=== PATIENT | male | born 1950 | race Caucasian/White ===

== ENCOUNTER 2018-03-24 13:00 | Outpatient (RCR) | payer OTHER, SELFPAY ==
--- NOTE | 2018-02-28 17:01 | HP.PTEVAL ---
Patient's Visit Information KAITLYNN SHARP is a 67 year old M referred to Physical Therapy by DARRYL PALMER with a diagnosis of LOW BACK PAIN. Date of Evaluation: 02/24/18 Physical Therapist: Marcie Koehler, PT, Cert MDT - Visit Plan Frequency: 2-3x /Week Duration: 4-6 Weeks Plan: f/u with postural corrections. Add 1. DLP exc and 2. UE Core exc next. - Subjective Findings: Work/Leisure: RETIRED. Disability: YES - SINCE 2011 - FOR PRIMARILY HIS BACK PER PATIENT REPORT. Present symptoms: LOW BACK PAIN. FERNY LE PAIN, NUMBNESS AND TINGLING TO FEET. SOMETIMES LOSES CONTROL OF FEET. Present since: 2004. Pain Scale: WORST 9/10, LEAST 6/10. Currently: 09/17. Commenced as a result of: NO APPARENT REASON. Symptoms at onset: LOW BACK. Worse: EVERYTHING. Better: NOTHING EXCEPT MAYBE LYING ON THE FLOOR. Disturbed sleep: YES. Previous history/Previous treatment: 2010 LUMBAR FUSION [facility]. PAIN MGMT PROCEEDURES - DIDN'T HELP. PAIN MEDICINE. PT A LONG TIME AGO BUT NOT RECENTLY. NO CHIROPRACTOR. Coughing/sneezing/straining: NEGATIVE. Gait: PATIENT REPORTS HE DOES NOT FEEL STABLE WHEN HE WALKS BUT HE DOES NOT HAVE AN ASSISTIVE DEVICE BECAUSE HE DOESN'T FEEL LIKE HE REALLY NEEDS IT. STATES HE JUST REACHES FOR THINGS WHEN UNSTEADY. DISTANCE LIMITED. CAN ONLY WALK ABOUT A QUARTER MILE OR LESS. A LOT OF PAIN THE FURTHER HE WALKS AND LEGS JUST KIND OF GIVE OUT. ABOUT 3 MONTHS AGO SLIPPED AND FELL ON WET FLOOR WASHING CAT THAT JUMPED OUT OF SINK - SCAPED TOP OF RIGHT FOOT BUT OTHERWISE NO RESIDUAL INJURIES. Difficulty initiating urination: NO. Accidents: NO. Unexplained weight loss: NO. Imaging: LUMBAR 01/06/18: SEVERE AND WORSENING DISC SPACE NARROWING AND MARGINAL SCLEROSIS AT L3-L4. POSTERSURGICAL CHANGE AT L4 AND L5 LEVELS, BEFORE. ALIGNMENT FROM L3 THROUGH S1 APPEARS GROSSLY STABLE. POSSIBLE CHRONIC DISCITIS. INCREASED NARROWING L4-L5. MARKED DEGENERATIVE NARROWING L5-S1. MILD RETROLISTHESIS OF L3 AND L4 AND L5 ON S1, WITH MILD ANTEROLISTHESIS OF L4. (SEE REPORT SENT TO BE SCANNED). PMH: IDDM. Recent major surgery: LUMBAR SX, HERNIA REPAIR, APPENDIX - BUT NONE RECENT. PLOF (Prior Level of Function): SAME. OTHER: LIVES ALONE. PATIENT REPORTS ALL OF THE OTHER DOCTORS HAVE TOLD HIM THERE IS NOTHING MORE THEY CAN DO FOR HIM BUT HE IS WILLING TO TRY THIS THERAPY. PATIENT REPORTS HE DOES NOT DO ANY EXERCISE PROGRAMS. - Pain Lumbar Spine Pain Intensity (Out of 10): 7 - Objective Sitting/Standing Posture: POOR. Lordosis: REDUCED. Lateral shift: NO. Relevant shift: N/A. Active Correction of posture: BETTER. Other Observations: THIS PATIENT AMBULATES INDEP'LY INTO PT WITHOUT ANY ASSISTIVE DEVICES OR LOB. CADANCE IS FAIR. INDEP TRANSFERS SIT TO STAND AND REVERSE WITHOUT UE ASSIST. Motor deficit: FERNY LE'S 5/5 WITH MMT'ING EXCEPT HIPS GROSSLY 4/5. Sensory deficit: FERNY LE'S GROSSLY INTACT AND SYMMETRICAL EXCEPT FEET NT. ROM deficit: FERNY HS AND GASTROC SOLEUS TIGHTNESS. Reflexes: FERNY LE'S 1/2. Dural Signs: NEGATIVE FERNY LE'S. Lumbar mvmt loss: flex - NIL. ext - TIAN. R SG - TIAN. L SG - TIAN. PATIENT REPORTS THE MVMTS MORE OR LESS RELEIVE THE PAIN OR PRESSURE. Core strength: POOR. Palpation: NO ACUTE LUMBAR TENDERNESS. - Goals Goal 1:: DECREASE C/O BACK AND FERNY LE SX'S. Goal Time Frame: 4-6 Weeks Goal 2:: IMPROVE STANDING, WALKING, SITTING, ADL AND SLEEP FUNCITON Goal Time Frame: 4-6 Weeks Goal 3:: INSTRUCT IN PROPHYLAXIS Goal Time Frame: 4-6 Weeks - Rehabilitation Potential Rehabilitation Potential: Questionable - Anticipated Interventions Patient/Client Instruction: Educate patient on: Condition, Plan of Care, Risk Factors, Benefits of Fitness Program For the Purpose of:: To improve self management Therapeutic Exercise to Include: Strength training, Body mechanics, Postural training, Flexibilty training, In an aquatic setting, Active ROM, Dynamic Lumbar Stabilization Comment: NEUTRAL SPINE ONLY For the Purpose of:: To decrease pain, To increase ROM, To improve muscle performance and motor function, To improve ability to perform ADL's, To increase tolerance to activity/condition/position, To improve ability of physical actions for home/community/work/leisure, To improve gait and locomotor functions Thank you for the opportunity to evaluate your patient. For Medicare and Medicare HMO plans, please review the plan of care and approve it. It will need to be FAXED BACK to us at [phone] for Medicare purposes. For Medicare only, by signing this I certify the plan of care. Please let me know if there are questions or concerns regarding this plan of care. Physician Signature: Date:
--- NOTE | 2018-03-24 13:27 | HP.PTDCSUM ---
HP - PT D/C Summary It has been my pleasure to treat KAITLYNN SHARP under orders from DARRYL PALMER, for the diagnosis of LOW BACK PAIN for a total of 9 visit(s). Discharge Date: 03/24/18 Please see the following information for a summary of their discharge status. - Subjective Subjective: PATIENT REPORTS THAT HE IS MORE FLEXIBLE NOW BUT HIS PAIN ISN'T A LOT DIFFERENT. [facility]. - Pain Lumbar Spine Pain Intensity (Out of 10): 7 RLE Pain Intensity (Out of 10): 7 LLE Pain Intensity (Out of 10): 7 - Objective Objective/Function: UPON EXAM, THERE ARE NO SIGNIFICANT CHANGES FROM INITIAL EVAL HOWEVER PATIENT HAS TOLERATED PRE IN THE POOL AND IS INDEP WITH A POOL PROGRAM SHOULD HE CHOOSE TO FOLLOW THROUGH. A CANE IS STILL RECOMMENDED FOR SAFETY AND PATIENT IS STILL RELUCTANT BUT AWARE OF RECOMMENDATION. HE IS ALSO INDEP WITH LAND STRETCHES. RECOMMEND PHYSICIAN FOLLOW UP AND PATIENT IS AGREEABLE. - Goals Goal 1:: DECREASE C/O BACK AND FERNY LE SX'S. Goal Progress: Not Progressing Goal 2:: IMPROVE STANDING, WALKING, SITTING, ADL AND SLEEP FUNCITON Goal Progress: Not Progressing Goal 3:: INSTRUCT IN PROPHYLAXIS Goal Progress: Not Progressing - Plan Plan: D/C DUE TO LACK OF PROGRESS - D/C Information If there are questions or concerns regarding this patient's physical therapy, please feel free to call me at [phone]. Thank you for the referral of this patient. Sincerely, Marcie Koehler, PT, Cert MDT
--- OUTSIDE RECORDS SUMMARY | 2018-04-30 23:25 | XMS RPT_ITS ---
:1950 Author Organization [facility] Care Team Providers Name Role Phone RODGER EVANS Attending Unavailable RODGER EVANS Referring Unavailable RODGER EVANS Primary Care Unavailable PROBLEMS PROBLEMS No Problem Records FoundPROCEDURES PROCEDURES No Procedure Records FoundRESULTS RESULTS INITAL EVALUATION (1) Observed: 02/28/2018 Status: F Source: [place] - PT 5:03 PM [facility] [place] [facility] [address] [place] [address]. [address] [place] [address] / REHABILITATION SERVICES INITIAL EVALUATION MR#: [id number] Acct: [id number] Name: KAITLYNN SHARP Rep #: [id number] : 1950 67 From: [place] PT. MDT Referring : Status: REG RCR Insurance: [employer] [employer]URANCE Patient's Visit Information KAITLYNN SHARP is a 67 year old M referred to Physical Therapy by DARRYL PALMER with a diagnosis of LOW BACK PAIN. Date of Evaluation: 02/24/18 Physical Therapist: Marcie Koehler PT, Cert MDT - Visit Plan Frequency: 2-3x /Week Duration: 4-6 Weeks Plan: f/u with postural corrections. Add 1. DLP exc and 2. UE Core exc next. - Subjective Findings: Work/Leisure: RETIRED. Disability: YES - SINCE 2011 - FOR PRIMARILY HIS BACK PER PATIENT REPORT. Present symptoms: LOW BACK PAIN. FERNY LE PAIN, NUMBNESS AND TINGLING TO FEET. SOMETIMES LOSES CONTROL OF FEET. Present since: 2004. Pain Scale: WORST 9/10, LEAST 6/10. Currently: 09/17. Commenced as a result of: NO APPARENT REASON. Symptoms at onset: LOW BACK. Worse: EVERYTHING. Better: NOTHING EXCEPT MAYBE LYING ON THE FLOOR. Disturbed sleep: YES. Previous history/Previous treatment: 2010 LUMBAR [facility]USION [facility]. PAIN MGMT PROCEEDURES - DIDN'T HELP. PAIN MEDICINE. PT A LONG TIME AGO BUT NOT RECENTLY. NO CHIROPRACTOR. Coughing/sneezing/straining: NEGATIVE. Gait: PATIENT REPORTS HE DOES NOT FEEL STABLE WHEN HE WALKS BUT HE DOES NOT HAVE AN ASSISTIVE DEVICE BECAUSE HE DOESN'T FEEL LIKE HE REALLY NEEDS IT. STATES HE JUST REACHES FOR THINGS WHEN UNSTEADY. DISTANCE LIMITED. CAN ONLY WALK ABOUT A QUARTER MILE OR LESS. A LOT OF PAIN THE FURTHER HE WALKS AND LEGS JUST KIND OF GIVE OUT. ABOUT 3 MONTHS AGO SLIPPED AND FELL ON WET FLOOR WASHING CAT THAT JUMPED OUT OF SINK - SCAPED TOP OF RIGHT FOOT BUT OTHERWISE NO RESIDUAL INJURIES. Difficulty initiating urination: NO. Accidents: NO. Unexplained weight loss: NO. Imaging: LUMBAR 01/06/18: SEVERE AND WORSENING DISC SPACE NARROWING AND MARGINAL SCLEROSIS AT L3-L4. POSTERSURGICAL CHANGE AT L4 AND L5 LEVELS, BEFORE. ALIGNMENT FROM L3 THROUGH S1 APPEARS GROSSLY STABLE. POSSIBLE CHRONIC DISCITIS. INCREASED NARROWING L4-L5. MARKED DEGENERATIVE NARROWING L5-S1. MILD RETROLISTHESIS OF L3 AND L4 AND L5 ON S1, WITH MILD ANTEROLISTHESIS OF L4. (SEE REPORT SENT TO BE SCANNED). PMH: IDDM. Recent major surgery: LUMBAR SX, HERNIA REPAIR, APPENDIX - BUT NONE RECENT. PLOF (Prior Level of Function): SAME. OTHER: LIVES ALONE. PATIENT REPORTS ALL OF THE OTHER DOCTORS HAVE TOLD HIM THERE IS NOTHING MORE THEY CAN DO FOR HIM BUT HE IS WILLING TO TRY THIS THERAPY. PATIENT REPORTS HE DOES NOT DO ANY EXERCISE PROGRAMS. - Pain Lumbar Spine Pain Intensity (Out of 10): 7 - Objective Sitting/Standing Posture: POOR. Lordosis: REDUCED. Lateral shift: NO. Relevant shift: N/A. Active Correction of posture: BETTER. Other Observations: THIS PATIENT AMBULATES INDEP'LY INTO PT WITHOUT ANY ASSISTIVE DEVICES OR LOB. CADANCE IS FAIR. INDEP TRANSFERS SIT TO STAND AND REVERSE WITHOUT UE ASSIST. Motor deficit: FERNY LE'S 5/5 WITH MMT'ING EXCEPT HIPS GROSSLY 4/5. Sensory deficit: FERNY LE'S GROSSLY INTACT AND SYMMETRICAL EXCEPT FEET NT. ROM deficit: FERNY HS AND GASTROC SOLEUS TIGHTNESS. Reflexes: FERNY LE'S 1/2. Dural Signs: NEGATIVE FERNY LE'S. Lumbar mvmt loss: flex - NIL. ext - TIAN. R SG - TIAN. L SG - TIAN. PATIENT REPORTS THE MVMTS MORE OR LESS RELEIVE THE PAIN OR PRESSURE. Core strength: POOR. Palpation: NO ACUTE LUMBAR TENDERNESS. - Goals Goal 1:: DECREASE C/O BACK AND FERNY LE SX'S. Goal Time Frame: 4-6 Weeks Goal 2:: IMPROVE STANDING, WALKING, SITTING, ADL AND SLEEP FUNCITON Goal Time Frame: 4-6 Weeks Goal 3:: INSTRUCT IN PROPHYLAXIS Goal Time Frame: 4-6 Weeks - Rehabilitation Potential Rehabilitation Potential: Questionable - Anticipated Interventions Patient/Client Instruction: Educate patient on: Condition, Plan of Care, Risk Factors, Benefits of Fitness Program For the Purpose of:: To improve self management Therapeutic Exercise to Include: Strength training, Body mechanics, Postural training, Flexibilty training, In an aquatic setting, Active ROM, Dynamic Lumbar Stabilization Comment: NEUTRAL SPINE ONLY For the Purpose of:: To decrease pain, To increase ROM, To improve muscle performance and motor function, To improve ability to perform ADL's, To increase tolerance to activity/condition/position, To improve ability of physical actions for home/community/work/leisure, To improve gait and locomotor functions Thank you for the opportunity to evaluate your patient. For Medicare and Medicare HMO plans, please review the plan of care and approve it. It will need to be FAXED BACK to us at [phone] for Medicare purposes. For Medicare only, by signing this I certify the plan of care. Please let me know if there are questions or concerns regarding this plan of care. Physician Signature: Date: <Electronically signed by Marcie Koehler PT, Cert. T> 02/28/18 1703 CC: [facility]; DARRYL PALMER KAMRYN Signed ALLERGIES ALLERGIES No Allergies Records FoundENCOUNTERS ENCOUNTERS ADMIT/DISCHARGE ACCOUNT ADMITTING ENCOUNTER LOCATION SOURCE NUMBER [facility] 03/04/2018 [id number] Ambulatory Zakiya Sigala 9 [facility] ing:PT Repository PAYERS PAYERS ENCOUNTER GUARANTOR PAYER SUBSCRIBER SOURCE 03/04/2018 Kaitlynn [id number] Primary Insurance:[place] Kaitlynn SantoyoOB: Zakiya [facility] [id number] [facility] [address]Nrm: Number: [facility] [id number] Repository (HP) Date:[id number] SERVICE [id number] [place], [place] [address]DN: [phone] X2003 03/04/2018 Secondary NOT GIVENLIBERTAD Sigala Insurance:SELF PAY [facility] Number: Effective Repository Date:2018-02-17
== END 2018-03-24 19:00 | disposition home or self-care (01) ==
LOC: PT 13:00
DX: M54.5 Low back pain (principal)
CPT/HCPCS: 97113; 97162; 97530

== ENCOUNTER 2018-09-06 10:27 | Emergency (ER) | payer OTHER, SELFPAY ==
[2018-09-06] VITALS (8 sets, daily range): BP systolic 129–141; BP diastolic 75–107; PULSE 77–90; RESP 14–18; TEMP 36.5; O2SAT 96–98; BMI 30.6; BMI 30.8
--- NOTE | 2018-09-06 11:01 | EKG12_ITS ---
Test Reason : MEDICAL CLEARANCE Blood Pressure : / mmHG Vent. Rate : 074 BPM Atrial Rate : 074 BPM P-R Int : 172 ms QRS Dur : 102 ms QT Int : 400 ms P-R-T Axes : 056 046 054 degrees QTc Int : 444 ms Normal sinus rhythm Normal ECG Confirmed by STEVIE GAN, TAMMIE ([id number]), video news editor MEGAN CONTRERAS ([id number]) on 09/08/2018 1:35:52 PM Referred By: YASMEEN Confirmed By:TAMMIE HUBBARD MD
--- NOTE | 2018-09-06 11:01 | CT_ITS ---
STUDY: CT BRAIN WITHOUT CONTRAST REASON FOR EXAM: Male, 67 years old. Expressive aphasia. RADIATION DOSAGE (If Supplied By Facility): CTDIvol = ( 44.99 ) mGy, DLP = ( 762.36 ) mGycm TECHNIQUE: Transaxial CT imaging of the brain was performed without administration of intravenous contrast material. Individualized dose optimization techniques were used for this CT. COMPARISON: No relevant priors. FINDINGS: Normal soft tissue structures. Normal calvarium. There is mild cerebral atrophy with widening of the extra-axial spaces and ventricular dilatation. Normal white matter tracts of the cerebral hemispheres. Normal basal ganglia and thalami. Normal brainstem. Normal cerebellum. There is no intracranial hemorrhage. There are no findings of an acute ischemic infarction. Opacification of the left maxillary sinus as well as the left ethmoid sinus with thinning of the bony septations. Partial opacification of the left frontal sinus. CT/Brain/Head without Contrast IMPRESSION: Chronic involutional changes of the brain. Left frontal, ethmoid and left maxillary sinusitis. Electronically Signed: Kulwant Lentz, at 12:55 EDT , Service support ,
--- NOTE | 2018-09-06 11:07 | ED.VISSUMM ---
- ER Visit Summary Date of Service: 09/06/18 Chief Complaint: Suicidal ideation History of Present Illness: The patient is a 67 M who presents with suicidal ideations that have gotten worse today. Granddaughter called police saying that patient was going to overdose on medications. Granddaughter stated the patient was also going to slit his own throat. Currently, patient denies any suicidal ideations. Patient told his granddaughter that he just said that to get her attention. Patient is concerned that he may be having a stroke because he is having difficulty speaking the words that he wants to say. Patient also admits to some left hand weakness. Patient denies any chest pain or shortness of breath. Patient did have an episode of nausea and vomiting today. Patient also admits to some subjective chills. Physical Examination: Vital signs are stable. Patient is afebrile. Patient is in no acute distress. Cranial nerves II through XII are intact. There are no focal motor or sensory deficits noted. Strength is 5/5 bilateral knee upper and lower extremities. There are no sensory deficits noted. Oral mucosa is pink and moist. Neck is supple. Trachea is midline. There is no JVD. Heart was regular rate and rhythm. Lungs are clear and equal bilaterally. Abdomen is soft. Bowel sounds are normal. There is no tenderness. Patient does have a flat affect. Patient denies any suicidal ideations to me. Test Results: CT scan of the brain was obtained. There is no acute infarct. CBC, comprehensive metabolic profile, PT with INR, PTT, and urinalysis were obtained and were all within normal limits. Urine tox screen was positive for benzodiazepines. Serum alcohol level was normal. EKG showed normal sinus rhythm. There are no acute ST or T wave changes. Emergency Department Course and Treatment: Patient remained stable here in the emergency department. Crisis was in to evaluate the patient. She felt the patient would benefit from inpatient admission. She is attempting to contact the DE at this time for possible admission. Disposition: Transfer to psychiatric facility Impression: Depression with suicidal ideation This note was generated with [employer] dictation software. It may contain incorrect words, spelling, and punctuation that were not noted in review of the chart prior to signing ED Disposition - Plan for ED Patient: Referrals: Hospital,DE [Primary Care Provider] -
[2018-09-06 11:30] LABS: Absolute Lymphocyte Count 1.03 X10^3/uL (0.83-4.51); Absolute Neutrophil Count 6.8 X10^3/uL (2.0-7.7); Basophil# 0.04 X10^3/uL; Basophil% 0.5 % (0-1); Eosinophil# 0.22 X10^3/uL; Eosinophils% 2.5 % (0-5); Hemoglobin 14.2 g/dL (13.0-16.5); Lymphocyte # 1.03 X10^3/ul (4.0); Lymphocyte % 11.8 % (19-41); Mean Corp Hgb Conc 34.6 g/dL (32-36); Mean Corpuscular Hgb 31.4 pg (27.0-32.0); Mean Corpuscular Volume 90.7 fL (80-94); Mean Platelet Vol. 10.2 fl (6.2-12.0); Monocyte# 0.54 X10^3/uL; Monocyte% 6.2 % (0-10); NRBC Flagged by Analyzer 0 % (0-5); Neutrophil # 6.78 X10^3/uL (2.7-7.7); Neutrophil % 77.7 % (47-70); Platelet Count 158 K/mm3 (150-450); RBC Distribution Width CV 13.3 % (11.6-14.6); Red Blood Count 4.52 M/mm3 (4.6-6.2); White Blood Count 8.7 K/mm3 (4.4-11.0)
[2018-09-06 11:40] LABS: ALB/GLOB Ratio 1.4 RATIO (0.9-2.4); AST(SGOT) 22 U/L (15-37); Alanine Aminotransfer ALT/SGPT 34 U/L (16-61); Albumin, Serum 4.2 g/dL (3.2-5.0); Alkaline Phosphatase 119 U/L (45-117); Anion Gap 9 (5-15); BUN 15 mg/dL (7-18); BUN/Creat Ratio 12.9 RATIO (10-20); Chloride 103 mmol/L (98-107); Creatinine, Serum 1.16 mg/dL (0.70-1.30); EST Glomerular Filtration Rate 67 mL/min (>60); Est Glom Filt Rate - Afr Amer 81 mL/min (>60); Estimated Creatinine Clearance 68.75 ml/min; Globulin 3.1 g/dL (2.2-4.2); Glucose 192 mg/dL (74-106); Potassium 4.3 mmol/L (3.5-5.1); Protein, Total 7.3 g/dL (6.4-8.2); Sodium Level 140 mmol/L (136-145)
[2018-09-06 11:43] LABS: Partial Thromboplast Time 26.1 Seconds (24.1-36.2)
[2018-09-06 11:56] LABS: Bedside Glucose 186 mg/dL (70-110)
--- NOTE | 2018-09-06 12:48 | ED.RN ---
PT TOLD BRUNA HE PLANNED TO KILL SELF BY OVERDOING. PT THEN TOLD POLICE HE WOULD SLIT HIS THROAT. PINK SLIP IN EFFECT
--- NOTE | 2018-09-06 12:52 | NURSING ---
PT DENIES SUICIDAL & HOMICIDAL IDEATION, PT DENIES ANY PLAN OR INTENTIONS TO HURT HIMSELF. PT DOES CONFIRM PAST ATTEMPT IN 1985. PINK SLIP STATES PATIENT HAS TRIGGERS AND PLAN TO ATTEMPT SI.
[2018-09-06 13:06] LABS: Bacteria 0 SEEN /hpf (None Seen); Mucous, Urine 0 SEEN /hpf (<or=2+); Red Blood Cells-Urine 0 SEEN /hpf (0-5); Squamous Epithelial Cells - UA 0 SEEN /hpf (0-5); White Blood Cells 0 SEEN /hpf (0-5)
[2018-09-06 13:12] LABS: Color, Urine Yellow (Yellow); Glucose, Dipstick 100 mg/dl (Normal); Ketone-Dipstick Negative (Negative); Leukocyte Esterase-Dipstick Negative /ul (Negative); Nitrite-Dipstick Negative (Negative); Occult Blood-Urine Negative /ul (Negative); Protein-Dipstick 30 mg/dl (Negative); Specific Gravity, Urine 1.005 (1.002-1.030); Urine Bilirubin Dipstick Negative (Negative); Urine Clarity Clear (Clear); Urine Urobilinogen Normal (Normal)
[2018-09-06 13:41] LABS: Amphetamine Urine VISTA NEGATIVE (<1000 ng/mL); Barbiturate Urine VISTA NEGATIVE (< 200 ng/mL); Benzodiazepine Urine VISTA POSITIVE (< 200 ng/mL); Cocaine Urine VISTA NEGATIVE (< 300 ng/mL); Ecstacy Urine VISTA NEGATIVE (< 500 ng/mL); Methadone Urine VISTA NEGATIVE (< 300 ng/mL); PCP Urine VISTA NEGATIVE (< 25 ng/mL); THC Urine VISTA NEGATIVE (< 50 ng/mL); Vista UDS pH Range 6
--- NOTE | 2018-09-06 14:44 | ED.RN ---
Addendum entered by Radha Stahl 09/06/18 14:45: MAX'S PHONE NUMBER [phone] Original Note: PHONE CALL TO GRANDDAUGHTER MAX SHARP TO BRING IN PT'S CANE AND PHONE PER PT REQUEST. ADVISED MAX PT IS DECLINING VISITORS AT THIS TIME.
--- NOTE | 2018-09-06 15:04 | CM.ED ---
SOCIAL WORK GET WITH CRISIS ASSESSED PATIENT. PLAN FOR INPATIENT PSYCH HOSPITALIZATION. GET TO WORK ON PLACEMENT. NURSING UPDATED. MAGALY GARRISON, PHYSICIAN PRACTICE COORDINATOR, RESTAURANT SERVER.
--- NOTE | 2018-09-06 17:22 | ED.RN ---
pt accepted at DC. awaiting DC to call
--- NOTE | 2018-09-06 20:54 | NURSING ---
ACCEPTED TO [facility] BY DR. MORRIS [phone] REPORT
[2018-09-06 23:21] LABS: Bedside Glucose 228 mg/dL (70-110)
[2018-09-07] VITALS (7 sets, daily range): BP systolic 161; BP diastolic 80; PULSE 92; RESP 14–16; O2SAT 98
== END 2018-09-07 06:14 ==
PROVIDERS: Emergency Provider Emergency Medicine
DX: F32.9 Major depressive disorder, single episode, unspecified (principal); R45.851 Suicidal ideations; R11.2 Nausea with vomiting, unspecified; R47.02 Dysphasia; R53.1 Weakness; E11.9 Type 2 diabetes mellitus without complications; I10 Essential (primary) hypertension; N40.0 Benign prostatic hyperplasia without lower urinary tract symptoms; M54.9 Dorsalgia, unspecified; G89.29 Other chronic pain; Z79.82 Long term (current) use of aspirin; Z79.4 Long term (current) use of insulin; Z79.1 Long term (current) use of non-steroidal anti-inflammatories (NSAID); Z79.899 Other long term (current) drug therapy
CPT/HCPCS: 70450; 80053; 80307; 80320; 81001; 82962; 84484; 85025; 85610; 85730; 93005; 99284; G0480

== ENCOUNTER 2021-11-22 21:31 | Observation (INO) | payer OTHER, SELFPAY ==
[2021-11-22] VITALS (9 sets, daily range): BP systolic 139–156; BP diastolic 67–76; PULSE 78–102; RESP 12–18; TEMP 36–36.8; O2SAT 93–98; BMI 31.4; BMI 29.7
--- NOTE | 2021-11-22 21:35 | CT_ITS ---
We are attempting to reach an attending provider to discuss findings. An addendum with communication details will be sent when the communication is complete. STUDY: CT BRAIN WITHOUT CONTRAST REASON FOR EXAM: Male, 71 years old. CVA symptoms TECHNIQUE: Transaxial CT imaging of the brain was performed without administration of intravenous contrast material. Individualized dose optimization techniques were used for this CT. COMPARISON: 09.06.18 FINDINGS: Normal calvarium. Normal soft tissues. Normal size ventricles and extra-axial spaces for the patient''s age. Normal white matter tracts of the cerebral hemispheres. Normal basal ganglia and thalami. Normal brainstem. Normal cerebellum. There is no intracranial hemorrhage. There are no findings of an acute ischemic infarction. There are calcifications noted in the distal vertebral arteries. There are calcifications noted in the cavernous carotid arteries. This is consistent for atherosclerotic disease. There is sinus disease. ASPECTS 10 CT/Brain/Head without Contrast IMPRESSION: There are no acute intracranial findings. Electronically Signed: Don Bertrand MD at 21:45 EDT ,
--- NOTE | 2021-11-22 21:51 | EDS_ITS ---
HPI History of Present Illness Chief Complaint: Neuro S/Sx Narrative Narrative: I did not participate in this patient's care. [facility] Medical History Anxiety and depression BPH (benign prostatic hyperplasia) Chronic anemia Diabetes mellitus, type 2 Former tobacco use GERD (gastroesophageal reflux disease) HLD (hyperlipidemia) HTN (hypertension) HATTIE on CPAP Home Medications Insulin Glargine,Hum.rec.anlog 45 unit SQ QHS diabetes 09/06/18 [History Last Taken 11/21/21] Iron 65 mg PO DAILY supplement 09/06/18 [History Last Taken 11/21/21] Novolog Flexpen 12 unit SQ BREAKFAST diabetes 09/06/18 [History Last Taken 11/21/21] traMADol 50 mg PO QHS pain 09/06/18 [History Last Taken 11/21/21] aspirin 81 mg capsule 81 mg PO DAILY heart health 11/22/21 [History Last Taken 11/21/21] buspirone 5 mg tablet 5 mg PO QHS depression/anxiety 11/22/21 [History Last Taken 11/21/21] cetirizine 10 mg tablet 10 mg PO QHS allergies 11/22/21 [History Last Taken 11/21/21] gabapentin 600 mg tablet 300 mg PO DAILY neuropathy 11/22/21 [History Last Taken 11/21/21] gabapentin 600 mg tablet 900 mg PO QHS neuropathy 11/22/21 [History Last Taken 11/21/21] ginkgo biloba 60 mg tablet 60 mg PO BID supplement 11/22/21 [History Last Taken 11/21/21] lisinopril 5 mg tablet 5 mg PO DAILY blood pressure 11/22/21 [History Last Taken 11/21/21] multivitamin 1 tab PO DAILY supplement 11/22/21 [History Last Taken 11/21/21] naproxen 500 mg tablet (Naprosyn) 500 mg PO BID PRN Pain 11/22/21 [History Last Taken Unknown] sertraline 100 mg tablet 100 mg PO DAILY depression/anxiety 11/22/21 [History Last Taken 11/21/21] tamsulosin 0.4 mg capsule 0.8 mg PO QHS urine flow 11/22/21 [History Last Taken 11/21/21] trazodone 50 mg tablet 25 mg PO QHS sleep 11/22/21 [History Last Taken 11/21/21] Allergy/AdvReac Type Severity Reaction Status Date / Time No Known Allergies Allergy Verified 09/06/18 10:27 Family History (Updated 11/22/21 @ 21:[address] Felicia Hester MD) Mother ALS (amyotrophic lateral sclerosis) Father BPH (benign prostatic hyperplasia) CAD (coronary artery disease) Sister Diabetes Surgical History History of appendectomy History of back surgery History of umbilical hernia repair Social History (Updated 11/22/21 @ 23:[address] Felicia Hester MD) household members: other details: Significant other present, girlfriend x 1 year. Smoking Status: Light Smoker (<10/day) how long ago did patient quit smoking: Quit cigarette tobacco 02/09 ppd x 25 yrs, picked up cigar 1-2/day. alcohol intake: current alcohol intake frequency: a few times a week substance use type: does not use EXAM Physical Exam Const Vital Signs: 11/22/21 21:31 11/22/21 21:46 11/22/21 21:31 Temperature 97.1 F L 97.1 F L Temperature Source Temporal Temporal Pulse Rate 85 Respiratory Rate 17 Blood Pressure 144/70 H Blood Pressure Mean 94 Pulse Ox 93 98 Oxygen Delivery Method Room Air Room Air 11/22/21 21:55 11/22/21 22:01 11/22/21 22:21 Temperature 98.1 F Temperature Source Oral Pulse Rate 80 97 Respiratory Rate 16 12 Blood Pressure 139/67 H 150/76 H Blood Pressure Mean 91 100 Pulse Ox 98 97 96 Oxygen Delivery Method Room Air Room Air Room Air [facility] Lab Data Labs: Laboratory Results - last 24 hr 11/22/21 11/22/21 11/22/21 21:29 21:29 21:29 WBC 6.9 RBC 4.23 L Hgb 13.8 Hct 41.2 MCV 97.4 H MCH 32.6 H MCHC 33.5 RDW Std Deviation 43.8 RDW Coeff of Haley 12.2 Plt Count 158 MPV 10.6 Immature Gran % (Auto) 0.600 Neut % (Auto) 72.2 H Lymph % (Auto) 18.1 L [place] % (Auto) 5.5 Eos % (Auto) 3.2 Baso % (Auto) 0.4 Absolute Neuts (auto) 5.0 Absolute Lymphs (auto) 1.24 Nucleated RBC % 0 PT 12.7 INR 1.0 APTT 23.8 L Sodium 140 Potassium 4.3 Chloride 105 Carbon Dioxide 28.0 Anion Gap 7 BUN 15 Creatinine 1.14 Estim Creat Clear Calc 66.18 Est GFR (MDRD) Af Amer 82 Est GFR (MDRD) Non-Af 68 BUN/Creatinine Ratio 13.2 Glucose 318 H Calcium 8.7 Magnesium Troponin I High Sens 5 11/22/21 21:29 WBC RBC Hgb Hct MCV MCH MCHC RDW Std Deviation RDW Coeff of Haley Plt Count MPV Immature Gran % (Auto) Neut % (Auto) Lymph % (Auto) [place] % (Auto) Eos % (Auto) Baso % (Auto) Absolute Neuts (auto) Absolute Lymphs (auto) Nucleated RBC % PT INR APTT Sodium Potassium Chloride Carbon Dioxide Anion Gap BUN Creatinine Estim Creat Clear Calc Est GFR (MDRD) Af Amer Est GFR (MDRD) Non-Af BUN/Creatinine Ratio Glucose Calcium Magnesium 2.2 Troponin I High Sens Radiography Diagnostic Testing: Clinical Impression(s) from Imaging Studies Brain CT 11/22/21 21:35 IMPRESSION: There are no acute intracranial findings. Electronically Signed: Don Bertrand MD at 21:45 EDT , ADDENDUM: 11/22/21 2200 IMPRESSION: There are no acute intracranial findings. N.B. : The above Results were Read Back by Don Bertrand MD to Florian Toney DO, MD, and understanding confirmed on 11/22/2021 21:53:09 (ET). Electronically Signed: Don Bertrand MD at 21:45 EDT , Chest X-Ray 11/22/21 22:15 IMPRESSION: Normal x-ray examination of the chest. Electronically Signed: Rodger Alberts MD at 22:28 EDT , Head/Neck CTA 11/22/21 22:18 IMPRESSION: Negative CTA carotid and CTA brain. Electronically Signed: Sarwat Caban MD at 22:35 EDT , ADDENDUM: 11/22/21 2243 IMPRESSION: Negative CTA carotid and CTA brain. N.B. : The above Results were Read Back by Sarwat Caban MD to Dr. Feng MD, and understanding confirmed on 11/22/2021 22:36:44 (ET). Electronically Signed: Sarwat Caban MD at 22:35 EDT , Discharge Plan Dx/Rx/DC Orders Clinical Impression: TIA (transient ischemic attack), General weakness, Diabetes mellitus Disposition Disposition: Acute Care Hospital [facility] Discharge Date/Time: 11/22/21 23:05
--- NOTE | 2021-11-22 21:55 | EKG12_ITS ---
Test Reason : STROKE Blood Pressure : / mmHG Vent. Rate : 082 BPM Atrial Rate : 000 BPM P-R Int : 000 ms QRS Dur : 088 ms QT Int : 368 ms P-R-T Axes : 000 054 055 degrees QTc Int : 429 ms Sinus Vs Ectopic Atrial Rhythm Abnormal ECG Confirmed by STEVIE GAN, TAMMIE ([id number]), international editorial producer MEGAN CONTRERAS ([id number]) on 11/25/2021 8:14:07 AM Referred By: DIMITRI Confirmed By:TAMMIE HUBBARD MD
--- NOTE | 2021-11-22 21:58 | ED.VIS.STROK ---
HPI History of Present Illness Chief Complaint: Neuro S/Sx Informant: patient and friend Onset/Context/Timing Onset: Today Context: Sudden Onset Timing: Continuous (Improving) Quality and Location: Positive for Right Arm Weakness, Left Arm Weakness, Right Leg Weakness, Left Leg Weakness, Slurred Speech and Difficulty with Ambulation Onset: 2000 hours tonight (approximately 90 minutes prior to arrival) Worsened by: Nothing Relieved by: Nothing Associated Symptoms Associated Symptoms: Positive for Headache, Nausea and Vomiting Narrative Narrative: Patient presents with stroke symptoms that began tonight. Patient was sitting on a swing by a campfire when he suddenly had slurred speech approximately 90 minutes prior to arrival. Patient states he felt weak all over at that time. Patient states he could not move. Girlfriend states that the patient had an episode of urinary and stool incontinence. Patient admits to a mild headache. Patient did have an episode of nausea and vomiting. Patient denies any chest pain or shortness of breath. Patient states his symptoms are improving here in the emergency department. [facility] Medical History Anxiety and depression BPH (benign prostatic hyperplasia) Chronic anemia Diabetes mellitus, type 2 Former tobacco use GERD (gastroesophageal reflux disease) HLD (hyperlipidemia) HTN (hypertension) HATTIE on CPAP Home Medications Insulin Glargine,Hum.rec.anlog 45 unit SQ PCHS 09/06/18 [History Last Taken Unknown] Iron 65 mg PO DAILY 09/06/18 [History Last Taken Unknown] Novolog Flexpen 12 unit SQ DAILY 09/06/18 [History Last Taken Unknown] traMADol 50 mg PO BID 09/06/18 [History Last Taken Unknown] aspirin 81 mg capsule 81 mg PO DAILY 11/22/21 [History Last Taken Unknown] buspirone 5 mg tablet 5 mg PO QHS 11/22/21 [History Last Taken 11/21/21] cetirizine 10 mg tablet 10 mg PO QHS t-1 11/22/21 [History Last Taken 11/21/21] gabapentin 600 mg tablet 1,200 mg PO QHS 11/22/21 [History Last Taken 11/21/21] gabapentin 600 mg tablet 600 mg PO DAILY 11/22/21 [History Last Taken Unknown] ginkgo biloba 60 mg tablet 60 mg PO BID 11/22/21 [History Last Taken Unknown] lisinopril 5 mg tablet 5 mg PO DAILY 11/22/21 [History Last Taken 11/22/21] multivitamin 1 tab PO DAILY 11/22/21 [History Last Taken Unknown] naproxen 500 mg tablet (Naprosyn) 500 mg PO BID PRN Pain 11/22/21 [History Last Taken Unknown] sertraline 100 mg tablet 100 mg PO DAILY 11/22/21 [History Last Taken 11/22/21] tamsulosin 0.4 mg capsule 0.8 mg PO QHS 11/22/21 [History Last Taken 11/21/21] trazodone 50 mg tablet 25 mg PO QHS sleep 11/22/21 [History Last Taken 11/21/21] Allergy/AdvReac Type Severity Reaction Status Date / Time No Known Allergies Allergy Verified 09/06/18 10:27 Family History (Updated 11/22/21 @ 21:[address] Felicia Hester MD) Mother ALS (amyotrophic lateral sclerosis) Father BPH (benign prostatic hyperplasia) CAD (coronary artery disease) Sister Diabetes Surgical History History of appendectomy History of back surgery History of umbilical hernia repair Social History (Updated 11/22/21 @ 22:[address] Felicia Hester MD) household members: spouse Smoking Status: Light Smoker (<10/day) alcohol intake: current alcohol intake frequency: a few times a week substance use type: does not use ROS ROS ED Constitutional Constitutional ED: Denies chills or fever(s) Eyes Eyes: Reports blurry vision; Denies diplopia ENT ENT ED: Reports rhinorrhea; Denies sore throat Cardiovascular Cardiovascular: Denies chest pain or palpitations Respiratory/Chest Respiratory/Chest: Denies cough or dyspnea Gastrointestinal Gastrointestinal: Reports nausea and vomiting Genitourinary Genitourinary ED: Denies dysuria or hematuria Musculoskeletal Musculoskeletal: Denies back pain or neck pain Integumentary Denies abscess or rash Neurologic Neurologic: Reports headache(s) and weakness Allergic/Immunologic Allergic/Immunologic ED: Denies mouth swelling or urticaria EXAM Physical Exam Const Vital Signs: 11/22/21 21:31 11/22/21 21:46 11/22/21 21:31 Temperature 97.1 F L 97.1 F L Temperature Source Temporal Temporal Pulse Rate 85 Respiratory Rate 17 Blood Pressure 144/70 H Blood Pressure Mean 94 Pulse Ox 93 98 Oxygen Delivery Method Room Air Room Air 11/22/21 21:55 11/22/21 22:01 11/22/21 22:21 Temperature 98.1 F Temperature Source Oral Pulse Rate 80 97 Respiratory Rate 16 12 Blood Pressure 139/67 H 150/76 H Blood Pressure Mean 91 100 Pulse Ox 98 97 96 Oxygen Delivery Method Room Air Room Air Room Air Positive well nourished and well developed General Appearance ED: well developed and NAD HEENT Reports moist mucous membranes atraumatic Eyes PERRL and EOMs intact bilaterally Neck supple and no JVD Chest Wall inspection of chest normal and palpation of chest normal Resp normal respiratory effort and clear to auscultation bilaterally Cardio Rate: regular rate Rhythm: regular rhythm GI normal to inspection, nondistended, normoactive bowel sounds, soft to palpation and non-tender Extremity normal to inspection Neuro oriented x3, CN's II-XII intact bilaterally and no sensory deficits noted [place] Coma Scale: document GCS findings Spontaneous Obeys Commands Oriented 15 Sensorium / Orientation: alert Speech: speech normal Motor Exam: strength 5/5 throughout Psych mental status grossly normal Skin no wounds NIHSS NIHSS Initial: 1a Level of Consciousness: 0 1b LOC Questions (Score 2 if aphasic/stupor): 0 1c LOC Commands (Only score 1st attempt): 0 2 Best Gaze (If aphasic, use reflexive mvmts.): 0 3 Visual: 0 4 Facial Palsy: 0 5 Motor Arm Right (UN = amputation/fusion): 0 5 Motor Arm Left: 0 6 Motor Leg Right: 0 6 Motor Leg Left: 0 7 Limb ataxia (Only + if out of proportion): 0 8 Sensory (Aphasia/stupor=0 or 1, coma=2): 0 9 Best Language: 0 10 Dysarthria (mute, coma=2, intubated=UN): 0 11 Extinction and Inattention (only scored if +): 0 Total Score: 0 MDM MDM MDM Narrative Medical decision making narrative: Stroke alert was called prehospital. CT scan of the brain was obtained initially and was negative. This was interpreted by the radiologist and reviewed by myself. EKG was obtained. On my interpretation, it showed a normal sinus rhythm with a rate of 82. IN interval, QRS interval, and QTc intervals were all normal. [place] was normal. There are no acute ST or T wave changes. Portable 1 view chest x-ray was obtained. On my interpretation, lung montoya are clear. There is normal cardiac silhouette. Bony thorax is normal. There is no acute process noted. Radiologist also interpreted the x-ray and agrees. CBC was within normal limits. PT with INR and PTT were within normal limits. Basic metabolic profile was within normal limits. High-sensitivity troponin was normal. CTA of the head neck was obtained. There is no acute abnormality noted. There is no evidence of large vessel occlusion. This was interpreted by the radiologist and reviewed by myself. Patient was evaluated by the stroke neurologist from [facility], Dr. Teresa Washington. She does not recommend tPA since his NIH stroke scale is low and his symptoms are improving. She recommends admission to the hospital and further work-up. Patient understands and is agreeable with the plan. All questions were answered. Lab Data Attestation: I reviewed the patient's lab results. Labs: Laboratory Results - last 24 hr 11/22/21 11/22/21 11/22/21 21:29 21:29 21:29 WBC 6.9 RBC 4.23 L Hgb 13.8 Hct 41.2 MCV 97.4 H MCH 32.6 H MCHC 33.5 RDW Std Deviation 43.8 RDW Coeff of Haley 12.2 Plt Count 158 MPV 10.6 Immature Gran % (Auto) 0.600 Neut % (Auto) 72.2 H Lymph % (Auto) 18.1 L [place] % (Auto) 5.5 Eos % (Auto) 3.2 Baso % (Auto) 0.4 Absolute Neuts (auto) 5.0 Absolute Lymphs (auto) 1.24 Nucleated RBC % 0 PT 12.7 INR 1.0 APTT 23.8 L Sodium 140 Potassium 4.3 Chloride 105 Carbon Dioxide 28.0 Anion Gap 7 BUN 15 Creatinine 1.14 Estim Creat Clear Calc 66.18 Est GFR (MDRD) Af Amer 82 Est GFR (MDRD) Non-Af 68 BUN/Creatinine Ratio 13.2 Glucose 318 H Calcium 8.7 Troponin I High Sens 5 Radiography Diagnostic Testing: Clinical Impression(s) from Imaging Studies Brain CT 11/22/21 21:35 IMPRESSION: There are no acute intracranial findings. Electronically Signed: Don Bertrand MD at 21:45 EDT , ADDENDUM: 11/22/21 2200 IMPRESSION: There are no acute intracranial findings. N.B. : The above Results were Read Back by Don Bertrand MD to Florian Toney DO, MD, and understanding confirmed on 11/22/2021 21:53:09 (ET). Electronically Signed: Don Bertrand MD at 21:45 EDT , Chest X-Ray 11/22/21 22:15 IMPRESSION: Normal x-ray examination of the chest. Electronically Signed: Rodger Alberts MD at 22:28 EDT , EKG Initial EKG: Attestation: I personally reviewed and interpreted this EKG as follows: Interpretation: Sinus Rhythm (82) and No Acute Injury Pattern Prior EKG tracings: available for review Prior: Unchanged (09/06/2018) Critical Care Time Critical Care Time: Yes Critical care time (excluding procedures): 30-74 minutes (33), Including time spent:, Discussing w/Patient &/or Family/Architectural Draftsman, Discussing w/Consultants, Arranging Admission or Transfer and Performing Direct Patient Care at Bedside Discharge Plan Triage Chief Complaint: Neuro S/Sx ED Provider: Florian Toney Dx/Rx/DC Orders Clinical Impression: TIA (transient ischemic attack), General weakness, Diabetes mellitus Prescriptions: No Action Insulin Glargine,Hum.rec.anlog 45 unit SQ PCHS Iron 65 mg PO DAILY Novolog Flexpen 12 unit SQ DAILY traMADol 50 mg PO BID multivitamin Tablet 1 tab PO DAILY buspirone 5 mg Tablet 5 mg PO QHS gabapentin 600 mg Tablet 600 mg PO DAILY gabapentin 600 mg Tablet 1,200 mg PO QHS trazodone 50 mg Tablet 25 mg PO QHS cetirizine 10 mg Tablet 10 mg PO QHS sertraline 100 mg Tablet 100 mg PO DAILY tamsulosin 0.4 mg Capsule 0.8 mg PO QHS Ginkgo 60 mg Tablet 60 mg PO BID Rx Instructions: give with meal/snack lisinopril 5 mg Tablet 5 mg PO DAILY naproxen [Naprosyn] 500 mg Tablet 500 mg PO BID PRN (Reason: Pain) aspirin 81 mg Capsule 81 mg PO DAILY [facility] Care Provider[facility] [facility] [Primary Care Provider] - Disposition Disposition: Acute Care Hospital [facility]
[2021-11-22 22:02] LABS: Absolute Lymphocyte Count 1.24 X10^3/uL (0.83-4.51); Basophil# 0.03 X10^3/uL; Basophil% 0.4 % (0-1); Eosinophil# 0.22 X10^3/uL; Eosinophils% 3.2 % (0-5); Hematocrit 41.2 % (40-54); Hemoglobin 13.8 g/dL (13.0-16.5); Lymphocyte # 1.24 X10^3/ul (0.83-4.51); Lymphocyte % 18.1 % (19-41); Mean Corp Hgb Conc 33.5 g/dL (32-36); Mean Corpuscular Hgb 32.6 pg (27.0-32.0); Mean Corpuscular Volume 97.4 fL (80-94); Mean Platelet Vol. 10.6 fl (6.2-12.0); Monocyte# 0.38 X10^3/uL; Monocyte% 5.5 % (0-10); NRBC Flagged by Analyzer 0 % (0-5); Neutrophil # 4.95 X10^3/uL (2.7-7.7); Neutrophil % 72.2 % (47-70); Platelet Count 158 K/mm3 (150-450); RBC Distribution Width CV 12.2 % (11.6-14.6); RBC Distribution Width SD 43.8 fl (35.1-43.9); Red Blood Count 4.23 M/mm3 (4.6-6.2); White Blood Count 6.9 K/mm3 (4.4-11.0)
[2021-11-22 22:12] LABS: Prothrombin Time (Protime)PT. 12.7 SECONDS (11.7-14.9)
[2021-11-22 22:13] LABS: Partial Thromboplast Time 23.8 Seconds (24.1-36.2)
--- NOTE | 2021-11-22 22:15 | RAD_ITS ---
STUDY: X-RAY CHEST REASON FOR EXAM: Male, 71 years old. Neuro deficit, acute, stroke suspected TECHNIQUE: Single AP portable view of the chest. COMPARISON: None. FINDINGS: The lungs are clear and expanded. There is no demonstrated pleural abnormality. Normal size heart. Normal mediastinum and alejandra. Normal visualized pulmonary arteries. Normal visualized aortic arch and descending thoracic aorta. Normal visualized thoracic spine. Normal visualized ribs, clavicles, and shoulders. There is no demonstrated abnormality of the visualized soft tissue structures of the upper abdomen. RAD/Chest 1 View IMPRESSION: Normal x-ray examination of the chest. Electronically Signed: Rodger Alberts MD at 22:28 EDT ,
--- NOTE | 2021-11-22 22:18 | CT_ITS ---
We are attempting to reach an attending provider to discuss findings. An addendum with communication details will be sent when the communication is complete. EXAM: CT ANGIOGRAPHY HEAD AND NECK WITH INTRAVENOUS CONTRAST CLINICAL INDICATION: Neuro deficit, acute, stroke suspected TECHNIQUE: [place] [facility] [place]/head and neck CT angiography protocol performed with intravenous contrast. This CT exam was performed using one or more of the following dose reduction techniques: automated exposure control, adjustment of the mA and/or kV according to patient size, and/or use of iterative reconstruction technique. This report was created using [employer] report [employer] technology. MIP reconstructed images were created and reviewed. CONTRAST: IV 100mL [id number] COMPARISON: None. FINDINGS: HEAD: RIGHT ANTERIOR CEREBRAL ARTERY: Unremarkable. No significant stenosis at the visualized segments. Anterior communicating artery is present. No aneurysm. RIGHT MIDDLE CEREBRAL ARTERY: Unremarkable. No significant stenosis at the visualized segments. No aneurysm. RIGHT POSTERIOR CEREBRAL ARTERY: Unremarkable. No occlusion or significant stenosis. No aneurysm. RIGHT INTRACRANIAL INTERNAL CAROTID ARTERY: Unremarkable. No significant stenosis. No dissection or occlusion. RIGHT INTRACRANIAL VERTEBRAL ARTERY: Unremarkable. No significant stenosis. No dissection or occlusion. LEFT ANTERIOR CEREBRAL ARTERY: Unremarkable. No significant stenosis at the visualized segments. No aneurysm. LEFT MIDDLE CEREBRAL ARTERY: Unremarkable. No significant stenosis at the visualized segments. No aneurysm. LEFT POSTERIOR CEREBRAL ARTERY: Unremarkable. No occlusion or significant stenosis. No aneurysm. LEFT INTRACRANIAL INTERNAL CAROTID ARTERY: Unremarkable. No significant stenosis. No dissection or occlusion. LEFT INTRACRANIAL VERTEBRAL ARTERY: Unremarkable. No significant stenosis. No dissection or occlusion. BASILAR ARTERY: Unremarkable. No significant stenosis. No aneurysm. OTHER VASCULATURE: No vascular malformation. NECK: RIGHT COMMON CAROTID ARTERY: Unremarkable. No significant stenosis. No dissection or occlusion. RIGHT EXTRACRANIAL INTERNAL CAROTID ARTERY: Unremarkable. No significant stenosis. No dissection or occlusion. RIGHT EXTERNAL CAROTID ARTERY: Unremarkable. No occlusion. RIGHT EXTRACRANIAL VERTEBRAL ARTERY: Unremarkable. No significant stenosis. No dissection or occlusion. LEFT COMMON CAROTID ARTERY: Unremarkable. No significant stenosis. No dissection or occlusion. LEFT EXTRACRANIAL INTERNAL CAROTID ARTERY: Unremarkable. No significant stenosis. No dissection or occlusion. LEFT EXTERNAL CAROTID ARTERY: Unremarkable. No occlusion. LEFT EXTRACRANIAL VERTEBRAL ARTERY: Unremarkable. No significant stenosis. No dissection or occlusion. GREAT VESSELS OF AORTIC ARCH: Unremarkable as visualized. Normal anatomy, patent. LUNG APICES: Unremarkable as visualized. HEAD and NECK: BONES/JOINTS: Unremarkable. No discrete lytic or blastic abnormalities. SOFT TISSUES: Unremarkable. CAROTID STENOSIS REFERENCE USING NASCET CRITERIA: % ICA stenosis = (1 - narrowest ICA diameter/diameter of distal cervical ICA) x 100. Mild - <50% stenosis. Moderate - 50-69% stenosis. Severe - 70-94% stenosis. Near occlusion - 95-99% stenosis. Occluded - 100% stenosis. CT/STROKE CTA Head AND Neck W/Con IMPRESSION: Negative CTA carotid and CTA brain. Electronically Signed: Sarwat Caban MD at 22:35 EDT ,
[2021-11-22 22:19] LABS: Anion Gap 7 (5-15); BUN 15 mg/dL (7-18); BUN/Creat Ratio 13.2 RATIO (10-20); Calcium,Total 8.7 mg/dL (8.5-10.1); Chloride 105 mmol/L (98-107); Creatinine, Serum 1.14 mg/dL (0.70-1.30); EST Glomerular Filtration Rate 68 mL/min (>60); Est Glom Filt Rate - Afr Amer 82 mL/min (>60); Estimated Creatinine Clearance 66.18 ml/min; Glucose 318 mg/dL (74-106); Potassium 4.3 mmol/L (3.5-5.1); Sodium Level 140 mmol/L (136-145); Troponin-I HS 5 pg/mL (3.0-78.0)
--- NOTE | 2021-11-22 22:27 | PCM.HP.STD ---
HPI - General General Date of Admission: 11/22/21 Date of Service: 11/22/21 Chief Complaint: Altered speech, general weakness. HPI Narrative The patient is a 71 y/o M w/ PMHx: Tobacco use, Chronic back pain, BPH, GERD, Anxiety and Depression w/ Hx suicidal ideations prior requiring psychiatric admission, Diabetes mellitus type II with neuropathy, HTN, HLD, Chronic anemia/Fe deficiency anemia, HATTIE on CPAP q HS who presents to the [facility] ED on 11/22/21 with history of onset at approximately 8:15 PM noted generalized weakness in addition to slurred speech reporting his inability to move secondary to generalized weakness with dysarthria and episode of nausea with associated emesis prompting EMS call and transition to the ED for evaluation. Of note patient's significant reporting that they had smoked cannabis during the evening for his birthday in addition to an episode of urinary and stool incontinence. Patient also reporting a mild headache upon ED presentation. Significant also noted that when he had the episode of incontinence of both urine and stool he was laying backwards and not responding but this only lasted seconds. Initial ED evaluation NIH stroke scale 0 with no specific focal deficits. Work-up in the ED included T97.1, heart rate 85, BP 144/70, respiratory rate 17, 98% on room air, EKG with sinus rhythm with no acute evidence of ischemia, CT of the brain with no acute intracranial findings, CBC with the be 6.9, hemoglobin 13.8, platelet 158 without marked shift, coags unremarkable aside PTT 23.8, BMP unremarkable aside glucose 318, troponin 5, CTA head and neck [], chest x-ray []. [facility] telestroke call with recommendation for continued evaluation for ischemic stroke at [facility] if CTA head and neck with no concerning findings or large vessel occlusion requiring transfer. [facility] Medical History Anxiety and depression BPH (benign prostatic hyperplasia) Chronic anemia Diabetes mellitus, type 2 Former tobacco use GERD (gastroesophageal reflux disease) HLD (hyperlipidemia) HTN (hypertension) HATTIE on CPAP Home Medications Insulin Glargine,Hum.rec.anlog 45 unit SQ PCHS 09/06/18 [History Last Taken Unknown] Iron 65 mg PO DAILY 09/06/18 [History Last Taken Unknown] Novolog Flexpen 12 unit SQ DAILY 09/06/18 [History Last Taken Unknown] traMADol 50 mg PO BID 09/06/18 [History Last Taken Unknown] aspirin 81 mg capsule 81 mg PO DAILY 11/22/21 [History Last Taken Unknown] buspirone 5 mg tablet 5 mg PO QHS 11/22/21 [History Last Taken 11/21/21] cetirizine 10 mg tablet 10 mg PO QHS t-1 11/22/21 [History Last Taken 11/21/21] gabapentin 600 mg tablet 1,200 mg PO QHS 11/22/21 [History Last Taken 11/21/21] gabapentin 600 mg tablet 600 mg PO DAILY 11/22/21 [History Last Taken Unknown] ginkgo biloba 60 mg tablet 60 mg PO BID 11/22/21 [History Last Taken Unknown] lisinopril 5 mg tablet 5 mg PO DAILY 11/22/21 [History Last Taken 11/22/21] multivitamin 1 tab PO DAILY 11/22/21 [History Last Taken Unknown] naproxen 500 mg tablet (Naprosyn) 500 mg PO BID PRN Pain 11/22/21 [History Last Taken Unknown] sertraline 100 mg tablet 100 mg PO DAILY 11/22/21 [History Last Taken 11/22/21] tamsulosin 0.4 mg capsule 0.8 mg PO QHS 11/22/21 [History Last Taken 11/21/21] trazodone 50 mg tablet 25 mg PO QHS sleep 11/22/21 [History Last Taken 11/21/21] Allergy/AdvReac Type Severity Reaction Status Date / Time No Known Allergies Allergy Verified 09/06/18 10:27 Family History (Updated 11/22/21 @ 21:[address] Felicia Hester MD) Mother ALS (amyotrophic lateral sclerosis) Father BPH (benign prostatic hyperplasia) CAD (coronary artery disease) Sister Diabetes Surgical History History of appendectomy History of back surgery History of umbilical hernia repair Social History (Updated 11/22/21 @ 23:[address] Felicia Hester MD) household members: other details: Significant other present, girlfriend x 1 year. Smoking Status: Light Smoker (<10/day) how long ago did patient quit smoking: Quit cigarette tobacco 2004 w/ 1/2 ppd x 25 yrs, picked up cigar 1-2/day. alcohol intake: current alcohol intake frequency: a few times a week substance use type: does not use ROS ROS Narrative Admission Review of Systems: CONSTITUTIONAL: No weight loss, fever, chills, + weakness or fatigue. HEENT: + headache. Eyes: No visual loss, blurred vision, double vision or yellow sclerae. Ears, Nose, Throat: No hearing loss, sneezing, congestion, runny nose or sore throat. SKIN: No rash or itching, lesions, wounds. CARDIOVASCULAR: No chest pain, chest pressure or chest discomfort, palpitations, edema, orthopnea, syncopal events. RESPIRATORY: No shortness of breath, cough or sputum, wheezing, hemoptysis. GASTROINTESTINAL: No anorexia, nausea, vomiting or diarrhea, abdominal pain, melena, BRBPR. GENITOURINARY: No dysuria, frequency, urgency or retention. NEUROLOGICAL: + headache, slurred speech, ? ataxia, generalized weakness, loss bowel and bladder, unresponsive period. No dizziness, numbness or tingling in the extremities, focal weakness, obvious seizure activity. MUSCULOSKELETAL: + muscle, back pain, joint pain or stiffness. HEMATOLOGIC: + anemia, bleeding or bruising. LYMPHATICS: No enlarged nodes. No history of splenectomy. PSYCHIATRIC: + history of depression or anxiety. ENDOCRINOLOGIC: No reports of sweating, cold or heat intolerance. No polyuria or polydipsia. ALLERGIES: No history of asthma, hives, eczema or rhinitis. Vital Signs Vital Signs Vital Signs: 11/22/21 21:31 11/22/21 21:46 11/22/21 21:31 Temperature 97.1 F L 97.1 F L Temperature Source Temporal Temporal Pulse Rate 85 Respiratory Rate 17 Blood Pressure 144/70 H Blood Pressure Mean 94 Pulse Ox 93 98 Oxygen Delivery Method Room Air Room Air 11/22/21 21:55 11/22/21 22:01 11/22/21 22:21 Temperature 98.1 F Temperature Source Oral Pulse Rate 80 97 Respiratory Rate 16 12 Blood Pressure 139/67 H 150/76 H Blood Pressure Mean 91 100 Pulse Ox 98 97 96 Oxygen Delivery Method Room Air Room Air Room Air Weight Weight: 231 lb 14.821 oz Body Mass Index (BMI) 31.4 Physical Exam Narrative Physical Examination: General: Awake, alert, oriented x 3 and cooperative, seated upright in the ED bed, significantly fatigued, irritable with repeat examinations. Skin: Normal color, normal turgor, no icterus, no cyanosis except for left anterior castellanos abrasion which patient had a clear cover dressing over with antibacterial ointment with some expected softened tissue over the abrasion and mild redness but no specific obvious infection or foul smell. HEENT: AT/NC, EOMI, PERRLA, mildly dry MM, no carotid bruits or JVD noted. Lungs: Mildly diminished, greater bases, poor effort, no rales, ronchi or wheezing. Heart: Currently regular rate and rhythm; no gallop, rub audible. Abdomen: Soft, obese, NTTP, no obvious distention, distant bowel sounds, no obvious HSM. Extremities: No cyanosis, clubbing, or edema, see skin. Neurological: Patient awake, alert, oriented as noted, cognitive function improving, now baseline intact; pupils equally reactive to light and accommodation, cranial nerves II-XII grossly normal, moving all 4 extremities, no focal deficits, strength moderately global decreased, [id number] intact, refused to continue to do exam including [id number], sensation intact, equivocal Babinski Psychiatric: Affect appears fatigued, mildly irritable, no acute evidence of depressive or anxiety feelings but does have underlying history. Results Lab / Micro Data Result Diagrams: 11/22/21 21:29 11/22/21 21:29 Labs: Laboratory Results - last 24 hr 11/22/21 21:29: WBC 6.9, RBC 4.23 L, Hgb 13.8, Hct 41.2, MCV 97.4 H, MCH 32.6 H, MCHC 33.5, RDW Std Deviation 43.8, RDW Coeff of Haley 12.2, Plt Count 158, MPV 10.6, Immature Gran % (Auto) 0.600, Neut % (Auto) 72.2 H, Lymph % (Auto) 18.1 L, [place] % (Auto) 5.5, Eos % (Auto) 3.2, Baso % (Auto) 0.4, Absolute Neuts (auto) 5.0, Absolute Lymphs (auto) 1.24, Nucleated RBC % 0 11/22/21 21:29: PT 12.7, INR 1.0, APTT 23.8 L 11/22/21 21:29: Sodium 140, Potassium 4.3, Chloride 105, Carbon Dioxide 28.0, Anion Gap 7, BUN 15, Creatinine 1.14, Estim Creat Clear Calc 66.18, Est GFR (MDRD) Af Amer 82, Est GFR (MDRD) Non-Af 68, BUN/Creatinine Ratio 13.2, Glucose 318 H, Calcium 8.7, Troponin I High Sens [address] 11/22/21 21:35 IMPRESSION: There are no acute intracranial findings. Electronically Signed: Don Bertrand MD at 21:45 EDT , ADDENDUM: 11/22/21 2200 IMPRESSION: There are no acute intracranial findings. N.B. : The above Results were Read Back by Don Bertrand MD to Florian Toney DO, MD, and understanding confirmed on 11/22/2021 21:53:09 (ET). Electronically Signed: Don Bertrand MD at 21:45 EDT , Assessment & Plan Assessment/Plan (1) TIA (transient ischemic attack): PLAN: Plan The patient is a 71 y/o M w/ PMHx: Chronic back pain, BPH, GERD, Anxiety and Depression w/ Hx suicidal ideations prior requiring psychiatric admission, Diabetes mellitus type II with neuropathy, HTN, HLD, Chronic anemia/Fe deficiency anemia, HATTIE on CPAP q HS who presents to the [facility] ED on 11/22/21 with history of onset at approximately 8:15 PM noted generalized weakness in addition to slurred speech reporting his inability to move secondary to generalized weakness with dysarthria and episode of nausea with associated emesis prompting EMS call and transition to the ED for evaluation. #1. Ataxia, slurred speech, generalized weakness concerning for TIA/CVA although confounded by recent cannabis usage: Will admit to the PCU, will obtain MRI Brain, ECHO, PT/OT/Speech/Nutrition evaluation per protocol. Will allow permissive HTN, maintain on asa, add Plavix low-dose, statin w/ AM FLP, fall precautions. FLP, magnesium, TSH, hemoglobin A1c pending. UDS requested. Given atypical history of loss of bowel and bladder will also request EEG. Once work-up obtained may consider Neurology re-evaluation if appropriate. #2. Diabetes mellitus type II with neuropathy: Hold oral home regimen, continue home insulin regimen, ADA diet, accu checks w/ ISS, continue patient home gabapentin regimen. HgbA1c pending as noted. #3. Anxiety and depression with history of prior suicidal ideation: We will continue patient home sertraline, buspar and trazodone regimen. From review of prior record [facility] secondary to suicidal ideations. #4. Hypertension: We will maintain permissive hypertension given acute presentation. As needed agents per stroke protocol. #5. Hyperlipidemia: We will continue patient home fenofibrate and pravastatin regimen, FLP in AM. #6. Chronic anemia/iron deficiency anemia: Admission hemoglobin [], baseline hemoglobin [], will continue to trend and continue patient chronic iron supplementation. #7. BPH: Continue home flomax regimen. #8. Tobacco use: Hx prior cigarette tobacco use of 1/2 pack/day x 25 years apparently quitting in 2003 but has recently picked up daily 1-2 cigars. Encouraged strongly cessation. #9. GERD: We will place on famotidine. #10. HATTIE: CPAP nightly. #11. DVT prophylaxis: SCDs, Lovenox. #12. CODE status: Patient notes that is healthcare power of trust and estates attorney is his son however he is currently incarcerated and at this point he cannot give me the name of who we want to be his decision-maker aside this. Discussed CODE status at length including difference between FULL code, DNR-CCA and DNR-CC status. Following discussions about the differences in these status, requested DNR-CCA, no intubation status. Advanced Care Planning Face to Face Time: 16 minutes. Charges/Coding Visit Charges OBSV E&M: 35029 Initial observation care L3 Procedures Hospitalists Procedures: 79476 Advncd Care Plan 30 Min
[2021-11-22 22:52] LABS: Magnesium 2.2 mg/dL (1.6-2.6)
--- NOTE | 2021-11-22 22:54 | NURSING ---
Swallow eval not completed. Pt unable to stay awake and alert for 15 min.
--- NOTE | 2021-11-22 23:23 | ECHOD_ITS ---
Reason For Study: TIA/CVA Procedure This was a 2D Doppler, Color Flow transthoracic echocardiogram. Exam performed portable in patient room. Left Ventricle Normal LV size. Left ventricular systolic function is normal. The estimated ejection fraction is 60 %. No evidence for diastolic dysfunction. No regional wall motion abnormalities noted. Right Ventricle Normal RV size. Normal systolic function. Atria Normal left atrium. Normal right atrium. No doppler evidence for ASD. Bubble contrast study negative for right to left interatrial shunt. Mitral Valve There is no mitral annular calcification. Normal mitral valve. Trivial mitral valve insufficiency. Tricuspid Valve Normal tricuspid valve. Trivial tricuspid valve insufficiency. Unable to estimate RV systolic pressure due to insufficient tricuspid regurgitant envelope. Aortic Valve Trisinus/trileaflet aortic valve. Normal aortic valve. Trivial aortic valve insufficiency. Pulmonic Valve The pulmonic valve is not well visualized. Great Vessels Normal sized aortic root. Pericardium/Pleural No pericardial effusion. Medication Performed a rapid injection of agitated mix of 9 cc saline and 1cc air to assess for atrial septal defect. MMode/2D Measurements & Calculations LVIDd: 4.6 cm IVSd: 1.1 cm Ao root diam: 3.2 cm LVIDs: 3.0 cm LVPWd: 1.1 cm RVDd: 4.1 cm FS: 34.9 % LAV(MOD-bp): 56.5 ml LVAd ap4: 26.9 cm2 SV(MOD-sp4): 37.7 ml LAV(MOD-bp) Indexed: 25.4 ml/m2 LVLd ap4: 8.4 cm LAV(MOD-sp2): 58.3 ml EDV(MOD-sp4): 69.8 ml LAV(MOD-sp4): 52.0 ml EDV(sp4-el): 73.1 ml LVAs ap4: 16.2 cm2 LVLs ap4: 7.2 cm ESV(MOD-sp4): 32.1 ml ESV(sp4-el): 30.9 ml EF(MOD-sp4): 54.0 % EF(sp4-el): 57.8 % SV(sp4-el): 42.2 ml LA A4 area: 18.4 cm2 LA dimension(2D): 3.6 cm RA A4 area: 11.9 cm2 Doppler Measurements & Calculations MV E max sergo: 83.9 cm/sec Lat Peak E' Sergo: 10.6 cm/sec Med Peak E' Sergo: 9.3 cm/sec MV A max sergo: 66.3 cm/sec E/E' lat: 7.9 E/E' med: 9.0 MV E/A: 1.3 Ao V2 max: 117.1 cm/sec LV V1 max: 95.9 cm/sec PA V2 max: 89.5 cm/sec Ao max P.5 mmHg LV V1 max P.7 mmHg Ao V2 mean: 83.7 cm/sec Ao mean P.0 mmHg Ao V2 VTI: 26.0 cm ECHO/Echo Complete Interpretation Summary Left ventricular systolic function is normal. The estimated ejection fraction is 60 %. Trivial mitral valve insufficiency. Trivial tricuspid valve insufficiency. Trivial aortic valve insufficiency. Unable to estimate RV systolic pressure due to insufficient tricuspid regurgita nt envelope. No evidence for diastolic dysfunction. Bubble contrast study negative for right to left interatrial shunt. Ordering Physician: Felicia Hester Referring Physician: [facility] Performed By: Kylah Valdovinos, REINIER, RVT
[2021-11-22] MEDS: 0.9% Normal Saline 1,000 ML 100 ML IV (23:46)
[2021-11-22 23:54] LABS: Amphetamine Urine VISTA NEGATIVE (<1000 ng/mL); Barbiturate Urine VISTA NEGATIVE (< 200 ng/mL); Benzodiazepine Urine VISTA NEGATIVE (< 200 ng/mL); Cocaine Urine VISTA NEGATIVE (< 300 ng/mL); Ecstacy Urine VISTA NEGATIVE (< 500 ng/mL); Methadone Urine VISTA NEGATIVE (< 300 ng/mL); PCP Urine VISTA NEGATIVE (< 25 ng/mL); THC Urine VISTA POSITIVE (< 50 ng/mL); Vista UDS pH Range 7
[2021-11-23] VITALS (10 sets, daily range): BP systolic 136–157; BP diastolic 68–89; PULSE 72–98; RESP 16–18; TEMP 36.4–36.9; O2SAT 93–97; BMI 29.7
[2021-11-23] MEDS: Gabapentin 300 MG Capsule 900 MG PO ×2 (02:53→22:07)
[2021-11-23 05:28] LABS: Absolute Lymphocyte Count 0.69 X10^3/uL (0.83-4.51); Absolute Neutrophil Count 6.1 X10^3/uL (2.0-7.7); Basophil# 0.02 X10^3/uL; Basophil% 0.3 % (0-1); Eosinophil# 0.15 X10^3/uL; Hemoglobin 12.7 g/dL (13.0-16.5); Lymphocyte # 0.69 X10^3/ul (0.83-4.51); Lymphocyte % 9.2 % (19-41); Mean Corp Hgb Conc 33.4 g/dL (32-36); Mean Corpuscular Hgb 32.4 pg (27.0-32.0); Mean Corpuscular Volume 96.9 fL (80-94); Mean Platelet Vol. 10.8 fl (6.2-12.0); Monocyte# 0.46 X10^3/uL; Monocyte% 6.1 % (0-10); NRBC Flagged by Analyzer 0 % (0-5); Neutrophil # 6.14 X10^3/uL (2.7-7.7); Platelet Count 147 K/mm3 (150-450); RBC Distribution Width CV 12.2 % (11.6-14.6); RBC Distribution Width SD 43.6 fl (35.1-43.9); Red Blood Count 3.92 M/mm3 (4.6-6.2); White Blood Count 7.5 K/mm3 (4.4-11.0)
[2021-11-23 06:10] LABS: ALB/GLOB Ratio 1.2 RATIO (0.9-2.4); AST(SGOT) 19 U/L (15-37); Alanine Aminotransfer ALT/SGPT 32 U/L (16-61); Albumin, Serum 3.3 g/dL (3.2-5.0); Alkaline Phosphatase 111 U/L (45-117); Anion Gap 8 (5-15); BUN 14 mg/dL (7-18); BUN/Creat Ratio 13.9 RATIO (10-20); Calcium,Total 8.2 mg/dL (8.5-10.1); Chloride 104 mmol/L (98-107); Cholesterol 165 mg/dL (200); Creatinine, Serum 1.01 mg/dL (0.70-1.30); EST Glomerular Filtration Rate 78 mL/min (>60); Est Glom Filt Rate - Afr Amer 94 mL/min (>60); Globulin 2.8 g/dL (2.2-4.2); Glucose 312 mg/dL (74-106); High Density Lipoprotein 29 mg/dL; Potassium 4.2 mmol/L (3.5-5.1); Protein, Total 6.1 g/dL (6.4-8.2); Sodium Level 139 mmol/L (136-145); Thyroid Stim Hormone (TSH) 0.86 uIU/mL (0.358-3.74); Triglycerides 374 mg/dL; Very Low Density Lipoprotein 75 mg/dL (5-40)
[2021-11-23] MEDS: Famotidine 20 MG Tablet PO ×2 (09:00→21:59)
[2021-11-23] MEDS: Ferrous Sulfate 325 MG Tablet PO (09:00)
[2021-11-23] MEDS: Aspirin 81 MG TAB.CHEW PO (09:00)
[2021-11-23] MEDS: Sertraline 100 MG Tablet PO (09:00)
[2021-11-23] MEDS: Clopidogrel Bisulfate 75 MG Tablet PO (09:00)
[2021-11-23] MEDS: Multivitamins,Therapeutic Tablet 1 TABLET PO (09:00)
[2021-11-23] MEDS: Enoxaparin 40 MG/0.4 ML Syringe SC (09:00)
[2021-11-23] MEDS: traMADol 50 MG Tablet PO ×2 (09:01→22:06)
[2021-11-23] MEDS: Gabapentin 300 MG Capsule PO (09:02)
[2021-11-23] MEDS: Insulin Lispro 100 UNIT/ML INSULN.PEN 12 UNIT SC (09:04)
[2021-11-23] MEDS: Insulin Lispro 100 UNIT/ML INSULN.PEN SC ×3 (09:05→16:31)
--- NOTE | 2021-11-23 09:50 | PN.HOSP_ITS ---
Subjective Subjective Doing well, no issues overnight. States that his slurred speech and ataxia have resolved, nurses are noting an NIH of 0 Objective Data Objective Data Vital Signs: Vital Signs Temp Pulse Resp BP Pulse Ox O2 Del Method 98.4 F 98 16 138/82 H 93 Room Air 11/23/21 07:00 11/23/21 07:00 11/23/21 07:00 11/23/21 07:00 11/23/21 08:15 11/23/21 08:15 Oxygen Delivery Method Room Air Weight: 220 lb 7.396 oz Body Mass Index (BMI) 29.7 Intake & Output: Intake and Output for Last 24 Hours 11/22/21 11/23/21 11/24/21 03:59 03:59 03:59 Intake Total 240 / 240 1280 / 1280 Output Total 1050 / 1050 Balance 240 / 240 230 / 230 Lab / Micro Data Result Diagrams: 11/23/21 04:35 11/23/21 04:35 Labs: Laboratory Results - last 24 hr 11/22/21 21:29: WBC 6.9, RBC 4.23 L, Hgb 13.8, Hct 41.2, MCV 97.4 H, MCH 32.6 H, MCHC 33.5, RDW Std Deviation 43.8, RDW Coeff of Haely 12.2, Plt Count 158, MPV 10.6, Immature Gran % (Auto) 0.600, Neut % (Auto) 72.2 H, Lymph % (Auto) 18.1 L, [place] % (Auto) 5.5, Eos % (Auto) 3.2, Baso % (Auto) 0.4, Absolute Neuts (auto) 5.0, Absolute Lymphs (auto) 1.24, Nucleated RBC % 0 11/22/21 21:29: PT 12.7, INR 1.0, APTT 23.8 L 11/22/21 21:29: Sodium 140, Potassium 4.3, Chloride 105, Carbon Dioxide 28.0, Anion Gap 7, BUN 15, Creatinine 1.14, Estim Creat Clear Calc 66.18, Est GFR (MDRD) Af Amer 82, Est GFR (MDRD) Non-Af 68, BUN/Creatinine Ratio 13.2, Glucose 318 H, Calcium 8.7, Troponin I High Sens 5 11/22/21 21:29: Magnesium 2.2 11/22/21 23:22: Urine Opiates Screen NEGATIVE, Urine Methadone Screen NEGATIVE, Ur Barbiturates Screen NEGATIVE, Ur Phencyclidine Scrn NEGATIVE, Ur Amphetamines Screen NEGATIVE, MDMA (Ecstasy) Screen NEGATIVE, U Benzodiazepines Scrn NEGATIVE, Urine Cocaine Screen NEGATIVE, U Cannabinoids Screen POSITIVE H, Ur Drug Screen Comment 11/23/21 04:35: WBC 7.5, RBC 3.92 L, Hgb 12.7 L, Hct 38.0 L, MCV 96.9 H, MCH 32.4 H, MCHC 33.4, RDW Std Deviation 43.6, RDW Coeff of Haley 12.2, Plt Count 147 L, MPV 10.8, Immature Gran % (Auto) 0.400, Neut % (Auto) 82.0 H, Lymph % (Auto) 9.2 L, [place] % (Auto) 6.1, Eos % (Auto) 2.0, Baso % (Auto) 0.3, Absolute Neuts (auto) 6.1, Absolute Lymphs (auto) 0.69 L, Nucleated RBC % 0 11/23/21 04:35: Sodium 139, Potassium 4.2, Chloride 104, Carbon Dioxide 27.0, Anion Gap 8, BUN 14, Creatinine 1.01, Estim Creat Clear Calc 74.70, Est GFR (MDRD) Af Amer 94, Est GFR (MDRD) Non-Af 78, BUN/Creatinine Ratio 13.9, Glucose 312 H, Calcium 8.2 L, Total Bilirubin 0.30, AST 19, ALT 32, Alkaline Phosphatase 111, Total Protein 6.1 L, Albumin 3.3, Globulin 2.8, Albumin/Globulin Ratio 1.2, Triglycerides 374 H, Cholesterol 165, LDL Cholesterol 61, VLDL Cholesterol 75 H, HDL Cholesterol 29 L, TSH 0.86 11/23/21 04:35: Hemoglobin A1c 8.0 H Radiography Diagnostic Testing: Radiology Impression Brain CT 11/22/21 21:35 IMPRESSION: There are no acute intracranial findings. Electronically Signed: Don Bertrand MD at 21:45 EDT Reading Location ID and State: [facility] / [place] , Service support , ADDENDUM: 11/22/21 2200 IMPRESSION: There are no acute intracranial findings. N.B. : The above Results were Read Back by Don Bertrand MD to Florian Toney DO, MD, and understanding confirmed on 11/22/2021 21:53:09 (ET). Electronically Signed: Don Bertrand MD at 21:45 EDT , Chest X-Ray 11/22/21 22:15 IMPRESSION: Normal x-ray examination of the chest. Electronically Signed: Rodger Alberts MD at 22:28 EDT , Head/Neck CTA 11/22/21 22:18 IMPRESSION: Negative CTA carotid and CTA brain. Electronically Signed: Sarwat Caban MD at 22:35 EDT , ADDENDUM: 11/22/21 2243 IMPRESSION: Negative CTA carotid and CTA brain. N.B. : The above Results were Read Back by Sarwat Caban MD to Dr. Feng MD, and understanding confirmed on 11/22/2021 22:36:44 (ET). Electronically Signed: Sarwat Caban MD at 22:35 EDT , Physical Exam Narrative General: Alert, Oriented x3, Cooperative, No apparent distress HEENT: Atraumatic, PERRLA, EOMI, Normocephalic Oral: Moist Mucosa Neck: Supple, No JVD Lungs: Clear to auscultation, Normal air movement, No rhonchi, No wheeze, No rales Cardiovascular: Regular rate, Regular Rhythm, Normal S1, Normal S2, No murmurs Abdomen: Soft, Non Tender, Non-Distended, No Hepato-splenomegaly Extremities: No edema, Capillary Refill Less than 3 Seconds Skin: No rashes, No breakdown Musculoskeletal: No Tenderness to Palpation of Joints or Extremities Neurological: Cranial nerves II-XII grossly intact, Motor Exam 5/5 strength throughout, Sensory exam intact to light touch and pain. NIH of 0 Psych/Mental Status: Normal Affect, Appropriate Assessment & Plan Assessment/Plan (1) TIA (transient ischemic attack): PLAN: Plan 1. CVA versus TIA versus seizure/tobacco abuse ? She did present with ataxia and slurred speech as well as generalized weakness ? She did also have a loss of bowel and bladder function ? Continue with MRI and EEG ? NIH of 0 ? Urine drug screen positive for cannabis ? Discussed tobacco cessation 2. HTN/HLD ? Continue with permissive hypertension with as needed blood pressure control ? Continue with aspirin and Plavix ? Continue with Lipitor 40 mg nightly 3. DM2 with neuropathy ? Continue with his home insulin regimen ? Accu-Cheks AC at bedtime ? We will make adjustments as necessary ? Continue with gabapentin 4. Anxiety and depression ? Stable ? Continue with his home medications 5. BPH ? Stable ? Continue with Flomax 6. HATTIE ? Stable ? Continue with nightly CPAP DVT: Lovenox Charges/Coding Visit Charges OBSV E&M: 10477 Subsequent observation care L2
--- NOTE | 2021-11-23 10:00 | MRI_ITS ---
HISTORY: CVA. TECHNIQUE: Multiplanar and multisequence MR images of the brain were obtained without contrast. 286 images. COMPARISON: CT prior day, 09/06/2018. FINDINGS: BRAIN PARENCHYMA: Minimal periventricular white matter change. No abnormal focus of restricted diffusion. No acute intracranial hemorrhage identified. CSF SPACES: Cerebral ventricles, cortical sulci, and other extra-axial CSF spaces within normal limits in size for age. No significant midline shift or other mass effect.No extra-axial fluid collection. VASCULAR SYSTEM: Major intracranial flow voids are maintained. PARANASAL SINUSES AND MASTOID AIR CELLS: Left frontal ethmoid, maxillary, and nasal cavity opacification. Trace fluid in the mastoid air cells. ORBITS: Symmetric contents. MRI/Brain without Contrast IMPRESSION: No evidence for acute infarct. Very mild chronic white matter changes. Chronic left rhinosinusitis. Electronically Signed: Yudelka Gardner MD at 11:32 EDT ,
[2021-11-23 10:26] LABS: Bedside Glucose 348 mg/dL (74-106)
--- NOTE | 2021-11-23 10:44 | NURSING ---
NIH not done at scheduled time due to patient being off the floor for MRI.
[2021-11-23 11:45] LABS: Bedside Glucose 232 mg/dL (74-106)
--- NOTE | 2021-11-23 15:16 | TELEMED_ITS ---
[facility] has confirmed receipt of a request for visit. This document confirms receipt of the order initiating the consult. To find the results of the consultation, please view the patient's reports for the scanned Telemed Consult.
[2021-11-23 16:50] LABS: Bedside Glucose 223 mg/dL (74-106)
[2021-11-23] MEDS: Loratadine 10 MG Tablet PO (21:56)
[2021-11-23] MEDS: traZODone 50 MG Tablet 25 MG PO (21:56)
[2021-11-23] MEDS: busPIRone 5 MG Tablet PO (21:56)
[2021-11-23] MEDS: Tamsulosin HCl 0.4 MG Capsule 0.8 MG PO (21:58)
[2021-11-23] MEDS: Atorvastatin Calcium 40 MG Tablet PO (21:59)
[2021-11-23] MEDS: Insulin Glargine-YFGN 100 UNIT/ML Pen 45 UNIT SC (22:13)
[2021-11-24 00:41] LABS: Bedside Glucose 230 mg/dL (74-106)
[2021-11-24 03:00] VITALS: BP 145/82; PULSE 63; PULSE 71; RESP 16; TEMP 36.6; O2SAT 94
[2021-11-24 05:05] LABS: Absolute Lymphocyte Count 1.06 X10^3/uL (0.83-4.51); Absolute Neutrophil Count 3.6 X10^3/uL (2.0-7.7); Basophil# 0.03 X10^3/uL; Basophil% 0.5 % (0-1); Eosinophil# 0.27 X10^3/uL; Eosinophils% 4.9 % (0-5); Hematocrit 36.8 % (40-54); Hemoglobin 12.6 g/dL (13.0-16.5); Lymphocyte # 1.06 X10^3/ul (0.83-4.51); Lymphocyte % 19.4 % (19-41); Mean Corp Hgb Conc 34.2 g/dL (32-36); Mean Corpuscular Hgb 33.1 pg (27.0-32.0); Mean Corpuscular Volume 96.6 fL (80-94); Mean Platelet Vol. 10.4 fl (6.2-12.0); Monocyte# 0.42 X10^3/uL; Monocyte% 7.7 % (0-10); NRBC Flagged by Analyzer 0 % (0-5); Neutrophil # 3.62 X10^3/uL (2.7-7.7); Neutrophil % 66.4 % (47-70); Platelet Count 140 K/mm3 (150-450); RBC Distribution Width CV 12.2 % (11.6-14.6); RBC Distribution Width SD 43.9 fl (35.1-43.9); Red Blood Count 3.81 M/mm3 (4.6-6.2); White Blood Count 5.5 K/mm3 (4.4-11.0)
[2021-11-24 05:33] LABS: Anion Gap 5 (5-15); BUN 15 mg/dL (7-18); BUN/Creat Ratio 16.5 RATIO (10-20); Calcium,Total 8.8 mg/dL (8.5-10.1); Chloride 106 mmol/L (98-107); Creatinine, Serum 0.91 mg/dL (0.70-1.30); EST Glomerular Filtration Rate 88 mL/min (>60); Est Glom Filt Rate - Afr Amer 106 mL/min (>60); Estimated Creatinine Clearance 82.91 ml/min; Glucose 207 mg/dL (74-106); Potassium 3.9 mmol/L (3.5-5.1); Sodium Level 139 mmol/L (136-145)
[2021-11-24 07:00] VITALS: PULSE 67
[2021-11-24 07:34] VITALS: O2SAT 95
--- NOTE | 2021-11-24 07:55 | PCM.PN.HOSP ---
Subjective Subjective Patient is a 71-year-old gentleman admitted with altered speech and generalized weakness. There was a concern for possible CVA MRI was however negative. Patient was reported to have experienced loss of bowel or bladder function during this episode he is currently undergoing EEG Objective Data Objective Data Vital Signs: Vital Signs Temp Pulse Resp BP Pulse Ox O2 Del Method 97.9 F 67 16 145/82 H 94 Room Air 11/24/21 03:00 11/24/21 07:00 11/24/21 03:00 11/24/21 03:00 11/24/21 03:00 11/24/21 03:00 Oxygen Delivery Method Room Air Weight: 100.4 kg Body Mass Index (BMI) 29.7 Intake & Output: Intake and Output for Last 24 Hours 11/22/21 11/23/21 11/24/21 23:59 23:59 23:59 Intake Total 240 / 240 3020 / 3020 Output Total 1050 / 1050 Balance 240 / 240 1970 / 1970 Lab / Micro Data Result Diagrams: 11/24/21 04:14 11/24/21 04:14 Labs: Laboratory Results - last 24 hr 11/23/21 04:35: Hemoglobin A1c 8.0 H 11/23/21 08:27: POC Glucose 348 H 11/23/21 11:08: POC Glucose 232 H 11/23/21 16:29: POC Glucose 223 H 11/23/21 22:10: POC Glucose 230 H 11/24/21 04:14: WBC 5.5, RBC 3.81 L, Hgb 12.6 L, Hct 36.8 L, MCV 96.6 H, MCH 33.1 H, MCHC 34.2, RDW Std Deviation 43.9, RDW Coeff of Haley 12.2, Plt Count 140 L, MPV 10.4, Immature Gran % (Auto) 1.100 H, Neut % (Auto) 66.4, Lymph % (Auto) 19.4, [place] % (Auto) 7.7, Eos % (Auto) 4.9, Baso % (Auto) 0.5, Absolute Neuts (auto) 3.6, Absolute Lymphs (auto) 1.06, Nucleated RBC % 0 11/24/21 04:14: Sodium 139, Potassium 3.9, Chloride 106, Carbon Dioxide 28.0, Anion Gap 5, BUN 15, Creatinine 0.91, Estim Creat Clear Calc 82.91, Est GFR (MDRD) Af Amer 106, Est GFR (MDRD) Non-Af 88, BUN/Creatinine Ratio 16.5, Glucose 207 H, Calcium 8.8 Radiography Diagnostic Testing: Radiology Impression Brain MRI 11/23/21 10:00 IMPRESSION: No evidence for acute infarct. Very mild chronic white matter changes. Chronic left rhinosinusitis. Electronically Signed: Yudelka Gardner MD at 11:32 EDT , Physical Exam Narrative GENERAL: cooperative HEENT: Atraumatic; normocephalic EYES; Anicteric, Normal Conjunctiva NECK; supple, normal thyroid, RESPIRATORY: Diminished to auscultation CARDIOVASCULAR: Regular S1 S2, GI: soft, normoactive bowel sounds, : No Renal angle tenderness; EXTREMITIES: No edema, no clubbing, MUSCULOSKELETAL: no muscle wasting NEURO: Awake; no lateralizing signs. SKIN: No Rash PSYCH; Flat affect Assessment & Plan Assessment/Plan (1) TIA (transient ischemic attack): PLAN: Plan Patient is a 71-year-old gentleman admitted with altered speech and generalized weakness. There was a concern for possible CVA MRI was however negative. Patient was reported to have experienced loss of bowel or bladder function during this episode he is currently undergoing EEG 1. Spectated TIA ? Initial MRI was negative for acute CVA given patient loss of bladder and bowel function during these events and EEG has been ordered to rule out possible seizure 2. Hypertension - Blood pressure controlled, home medications continued with dose adjustment as needed 3. Dyslipidemia -Patient is on statin therapy, continued at home dose 4. Diabetes mellitus type II -patient's oral hypoglycemics held. Placed on long acting insulin, Accu-Cheks a.c. and at bedtime and covered with sliding scale insulin 5. Depression with anxiety ?Discontinue home meds 6. BPH ? Patient is on Flomax did continue 7. Obstructive sleep apnea ? Patient is on CPAP at night 8. Class I obesity with BMI of 30 Weight loss advised 9. DVT prophylaxis ? SC Lovenox 1. CVA versus TIA versus seizure/tobacco abuse ? She did present with ataxia and slurred speech as well as generalized weakness ? She did also have a loss of bowel and bladder function ? Continue with MRI and EEG ? NIH of 0 ? Urine drug screen positive for cannabis ? Discussed tobacco cessation 2. HTN/HLD ? Continue with permissive hypertension with as needed blood pressure control ? Continue with aspirin and Plavix ? Continue with Lipitor 40 mg nightly 3. DM2 with neuropathy ? Continue with his home insulin regimen ? Accu-Cheks AC at bedtime ? We will make adjustments as necessary ? Continue with gabapentin 4. Anxiety and depression ? Stable ? Continue with his home medications 5. BPH ? Stable ? Continue with Flomax 6. HATTIE ? Stable ? Continue with nightly CPAP 7. Tobacco dependence - Counseled on cessation, offered nicotine patch for tobacco cravings 8. DVT prophylaxis ? SC Lovenox Charges/Coding Visit Charges OBSV E&M: 65932 Subsequent observation care L2
[2021-11-24 09:00] VITALS: BP 145/71; PULSE 72; RESP 18; TEMP 36.2; O2SAT 95
[2021-11-24] MEDS: Insulin Lispro 100 UNIT/ML INSULN.PEN 12 UNIT SC (09:12)
[2021-11-24] MEDS: Famotidine 20 MG Tablet PO (09:14)
[2021-11-24] MEDS: Multivitamins,Therapeutic Tablet 1 TABLET PO (09:14)
[2021-11-24] MEDS: Ferrous Sulfate 325 MG Tablet PO (09:14)
[2021-11-24] MEDS: Aspirin 81 MG TAB.CHEW PO (09:14)
[2021-11-24] MEDS: Sertraline 100 MG Tablet PO (09:15)
[2021-11-24] MEDS: Clopidogrel Bisulfate 75 MG Tablet PO (09:15)
[2021-11-24] MEDS: Gabapentin 300 MG Capsule PO (09:18)
[2021-11-24] MEDS: Enoxaparin 40 MG/0.4 ML Syringe SC (09:21)
[2021-11-24 09:35] LABS: Bedside Glucose 203 mg/dL (74-106)
[2021-11-24 11:00] VITALS: PULSE 77
--- NOTE | 2021-11-24 11:09 | CASEMGMT ---
This ALEX DIEGO to room with SOLOMON form, explanation done-pt voices understanding, and signs SOLOMON form. Original to chart and copy to pt. Pt voices no further questions/concerns/needs. Pt states no concerns with going home at time of discharge and therapy states no therapy recommended. [place] ALEX DIEGO
[2021-11-24] MEDS: Insulin Lispro 100 UNIT/ML INSULN.PEN SC (11:27)
[2021-11-24 11:50] LABS: Bedside Glucose 217 mg/dL (74-106)
--- NOTE | 2021-11-24 13:08 | DS.PCM_ITS ---
Providers Date of Admission: 11/22/21 Date of Discharge: 11/24/21 Primary Care Physician: [facility] Reason For Visit: CVA/TIA Diagnosis Discharge Diagnosis (1) TIA (transient ischemic attack): Status: Acute Code(s): G45.9 - Transient cerebral ischemic attack, unspecified Medications at Discharge Home Medications Insulin Glargine,Hum.rec.anlog 45 unit SQ QHS diabetes 09/06/18 Iron 65 mg PO DAILY supplement 09/06/18 Novolog Flexpen 12 unit SQ BREAKFAST diabetes 09/06/18 traMADol 50 mg PO QHS pain 09/06/18 aspirin 81 mg capsule 81 mg PO DAILY heart health 11/22/21 buspirone 5 mg tablet 5 mg PO QHS depression/anxiety 11/22/21 cetirizine 10 mg tablet 10 mg PO QHS allergies 11/22/21 gabapentin 600 mg tablet 300 mg PO DAILY neuropathy 11/22/21 gabapentin 600 mg tablet 900 mg PO QHS neuropathy 11/22/21 lisinopril 5 mg tablet 5 mg PO DAILY blood pressure 11/22/21 multivitamin 1 tab PO DAILY supplement 11/22/21 sertraline 100 mg tablet 100 mg PO DAILY depression/anxiety 11/22/21 tamsulosin 0.4 mg capsule 0.8 mg PO QHS urine flow 11/22/21 trazodone 50 mg tablet 25 mg PO QHS sleep 11/22/21 atorvastatin 40 mg tablet 40 mg PO QHS #90 tabs 11/24/21 Hospital Course Summary of Care Provided Minutes Spent on Discharge: 35 Hospital Course: Patient is a 71-year-old gentleman admitted with altered speech and generalized weakness.? There was a concern for possible CVA MRI was however negative.? Patient was reported to have experienced loss of bowel or bladder function during this episode he is currently undergoing EEG 1.? Spectated TIA ? Initial MRI was negative for acute CVA given patient loss of bladder and bowel function during these events and EEG has been ordered to rule out possible seizure ? Patient EEG was nondiagnostic for seizure. Patient was discharged home with addition of statin therapy to antiplatelet therapy 2.? Hypertension - Blood pressure controlled, home medications continued with dose adjustment as needed 3.? Dyslipidemia -Patient is on statin therapy, continued at home dose 4.? Diabetes mellitus type II -patient's oral hypoglycemics held. Placed on long acting insulin, Accu-Cheks a.c. and at bedtime and covered with sliding scale insulin 5.? Depression with anxiety ?Discontinue home meds 6.? BPH ? Patient is on Flomax did continue 7.? Obstructive sleep apnea ? Patient is on CPAP at night 8.? Class I obesity with BMI of 30 Weight loss advised 9.? DVT prophylaxis ? SC Lovenox Physical Exam Narrative GENERAL: cooperative HEENT: Atraumatic; normocephalic EYES; Anicteric, Normal Conjunctiva NECK; supple, normal thyroid, RESPIRATORY: Diminished to auscultation CARDIOVASCULAR:? Regular S1 S2, GI:? soft, normoactive bowel sounds, : No Renal angle tenderness; EXTREMITIES:? No edema, no clubbing, MUSCULOSKELETAL:? no muscle wasting NEURO:? Awake;? no lateralizing signs. SKIN:? No Rash PSYCH; Flat? affect Weight / BMI Weight Weight: 100.4 kg Body Mass Index (BMI) 29.7 ABG / Lab / Microbiology Data Result Diagrams: 11/24/21 04:14 11/24/21 04:14 Laboratory: Laboratory Results - last 24 hr 11/23/21 16:29: POC Glucose 223 H 11/23/21 22:10: POC Glucose 230 H 11/24/21 04:14: WBC 5.5, RBC 3.81 L, Hgb 12.6 L, Hct 36.8 L, MCV 96.6 H, MCH 33.1 H, MCHC 34.2, RDW Std Deviation 43.9, RDW Coeff of Haley 12.2, Plt Count 140 L, MPV 10.4, Immature Gran % (Auto) 1.100 H, Neut % (Auto) 66.4, Lymph % (Auto) 19.4, [place] % (Auto) 7.7, Eos % (Auto) 4.9, Baso % (Auto) 0.5, Absolute Neuts (auto) 3.6, Absolute Lymphs (auto) 1.06, Nucleated RBC % 0 11/24/21 04:14: Sodium 139, Potassium 3.9, Chloride 106, Carbon Dioxide 28.0, Anion Gap 5, BUN 15, Creatinine 0.91, Estim Creat Clear Calc 82.91, Est GFR (MDRD) Af Amer 106, Est GFR (MDRD) Non-Af 88, BUN/Creatinine Ratio 16.5, Glucose 207 H, Calcium 8.8 11/24/21 09:05: POC Glucose 203 H 11/24/21 11:20: POC Glucose 217 H Radiography Diagnostic Testing: Radiology Impression Echocardiogram 11/22/21 23:23 Interpretation Summary Left ventricular systolic function is normal. The estimated ejection fraction is 60 %. Trivial mitral valve insufficiency. Trivial tricuspid valve insufficiency. Trivial aortic valve insufficiency. Unable to estimate RV systolic pressure due to insufficient tricuspid regurgitant envelope. No evidence for diastolic dysfunction. Bubble contrast study negative for right to left interatrial shunt. Ordering Physician: Felicia Hester Referring Physician: [facility] Performed By: Kylah Valdovinos RDCS, RVBecca D/C Instructions Discharge Diet: 1800 Calorie Control Diet Discharge Activity: Return to Normal Activity Call your doctor if you observe: Fever of 101 or Higher, Shortness of breath, Fainting spells and Chest pain Meaningful Use Info Meaningful Use Diagnoses (Choose all that apply): None applicable Discharge Plan Admission Admit Date/Time: 11/22/21 22:28 Attending Provider: Vic Salas Primary Care Provider: [facility],[place] Consulting Providers: Felicia Hester ; Rodo Darden Discharge Orders/Prescriptions Prescriptions: New atorvastatin 40 mg Tablet 40 mg PO QHS Qty: 90 0RF Continued Insulin Glargine,Hum.rec.anlog 45 unit SQ QHS Iron 65 mg PO DAILY Novolog Flexpen 12 unit SQ BREAKFAST traMADol 50 mg PO QHS multivitamin Tablet 1 tab PO DAILY buspirone 5 mg Tablet 5 mg PO QHS gabapentin 600 mg Tablet 300 mg PO DAILY gabapentin 600 mg Tablet 900 mg PO QHS trazodone 50 mg Tablet 25 mg PO QHS cetirizine 10 mg Tablet 10 mg PO QHS sertraline 100 mg Tablet 100 mg PO DAILY tamsulosin 0.4 mg Capsule 0.8 mg PO QHS lisinopril 5 mg Tablet 5 mg PO DAILY aspirin 81 mg Capsule 81 mg PO DAILY Discontinued Ginkgo 60 mg Tablet 60 mg PO BID Rx Instructions: give with meal/snack naproxen [Naprosyn] 500 mg Tablet 500 mg PO BID PRN (Reason: Pain) Referrals / Follow Up: [facility] [Primary [facility] Provider[facility] - Within 2 Weeks Disposition Disposition (needs filled in before D/C Order can be placed): Home, Self Care Charges/Coding Visit Charges OBSV E&M: 60312 Observation care discharge
[2021-11-24 13:26] VITALS: BP 145/71; PULSE 72; RESP 18; TEMP 36.2; O2SAT 95
--- NOTE | 2021-11-24 13:27 | PHA.DC.MR ---
Pharmacy Service has performed discharge medication reconciliation for this patient. The patient's discharge medication list was reviewed for discrepancies and discrepancies were resolved. Unable to grief counselor, medications reviewed. Home Medications Insulin Glargine,Hum.rec.anlog 45 unit SQ QHS diabetes 09/06/18 Iron 65 mg PO DAILY supplement 09/06/18 Novolog Flexpen 12 unit SQ BREAKFAST diabetes 09/06/18 traMADol 50 mg PO QHS pain 09/06/18 aspirin 81 mg capsule 81 mg PO DAILY heart health 11/22/21 buspirone 5 mg tablet 5 mg PO QHS depression/anxiety 11/22/21 cetirizine 10 mg tablet 10 mg PO QHS allergies 11/22/21 gabapentin 600 mg tablet 300 mg PO DAILY neuropathy 11/22/21 gabapentin 600 mg tablet 900 mg PO QHS neuropathy 11/22/21 lisinopril 5 mg tablet 5 mg PO DAILY blood pressure 11/22/21 multivitamin 1 tab PO DAILY supplement 11/22/21 sertraline 100 mg tablet 100 mg PO DAILY depression/anxiety 11/22/21 tamsulosin 0.4 mg capsule 0.8 mg PO QHS urine flow 11/22/21 trazodone 50 mg tablet 25 mg PO QHS sleep 11/22/21 atorvastatin 40 mg tablet 40 mg PO QHS #90 tabs 11/24/21
--- NOTE | 2021-11-24 13:40 | CASEMGMT ---
SW did not complete a PHQ 9 as patient did not have a Stroke. Mirella HINKLE
== END 2021-11-24 13:14 | disposition home or self-care (01) ==
LOC: ED 22:38 → PCU 23:12
PROVIDERS: Family Medicine; Admitting Provider Family Medicine; Emergency Provider Emergency Medicine; Visit Provider Internal Medicine
DX: G45.9 Transient cerebral ischemic attack, unspecified (principal); E11.40 Type 2 diabetes mellitus with diabetic neuropathy, unspecified; Z79.4 Long term (current) use of insulin; R15.9 Full incontinence of feces; F17.290 Nicotine dependence, other tobacco product, uncomplicated; R47.81 Slurred speech; G89.29 Other chronic pain; E78.5 Hyperlipidemia, unspecified; R29.700 NIHSS score 0; I10 Essential (primary) hypertension; G47.33 Obstructive sleep apnea (adult) (pediatric); F41.8 Other specified anxiety disorders; K21.9 Gastro-esophageal reflux disease without esophagitis; Z79.899 Other long term (current) drug therapy; Z79.82 Long term (current) use of aspirin; R32 Unspecified urinary incontinence; R53.1 Weakness; N40.0 Benign prostatic hyperplasia without lower urinary tract symptoms; R27.0 Ataxia, unspecified
CPT/HCPCS: 36415; 70450; 70496; 70498; 70551; 71045; 80048; 80053; 80061; 80307; 82962; 83036; 83735; 84443; 84484; 85025; 85610; 85730; 92526; 92610; 93005; 93306; 94762; 95819; 96360; 96361; 96372; 97802; 99218; 99251; 99285; 99406; J7030; Q9957; Q9967; A4216; G0378; G0463

== ENCOUNTER 2022-01-29 09:55 | Emergency (ER) | payer OTHER, SELFPAY ==
[2022-01-29 09:56] VITALS: BP 152/74; PULSE 73; RESP 18; TEMP 35.7; O2SAT 98; BMI 31.9
--- NOTE | 2022-01-29 10:40 | RAD_ITS ---
STUDY: X-RAY CHEST REASON FOR EXAM: Male, 71 years old. Left-sided chest pain. TECHNIQUE: PA and lateral views of the chest. COMPARISON: Comparison is made with prior study 11/22/2021. FINDINGS: EKG electrodes are seen. Mild increased linear markings at the left lung base suggestive of a possible early infiltrate versus atelectasis. There is no demonstrated pleural abnormality. Normal size heart. Normal mediastinum and alejandra. Normal visualized pulmonary arteries. There is atherosclerotic tortuosity of the aortic arch and descending thoracic aorta. Normal visualized thoracic spine. Normal visualized ribs, clavicles, and shoulders. There is no demonstrated abnormality of the visualized soft tissue structures of the upper abdomen. RAD/Chest PA and Lateral IMPRESSION: Increased markings in the left lung base suggestive of either atelectasis and/or early infiltrate. Electronically Signed: Kulwant Lentz MD at 11:27 [facility] ,
--- NOTE | 2022-01-29 10:40 | ED.VIS.CHEST ---
HPI History of Present Illness Chief Complaint: Chest Pain Informant: patient Onset/Context/Timing Onset: Days (3-4) Activity at onset: gradual and onset Timing: Continuous Quality: Positive for Sharp Location: Left Chest (without any radiation) Current Severity: Mild Maximum Severity: Mild Worsened By: Movement of Arm, Movement of Torso and Breathing Relieved By: Remaining Still Associated Symptoms: Positive for Dyspnea (a little); Negative for Nausea, Vomiting, Diaphoresis, Cough, Fever, Lightheadedness or Palpitations Narrative Narrative: Patient has been having left-sided chest discomfort just below the breast that has been worse when he does lifting at work, moves his torso and his left upper extremity at times, and better when he rests. No history of heart problems. He states he had a small stroke couple months ago and was admitted here, he was already on a baby aspirin daily before that and that was not changed. No anticoagulants, no clopidogrel. He denies any recent illness. 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 Pain is been constant for the last several days, mild-moderate but not going away at all. States he felt a little short of breath no cough other than usual. He stopped smoking 2 months ago when he had his stroke. [facility] Medical History Anxiety and depression BPH (benign prostatic hyperplasia) Chronic anemia Diabetes mellitus, type 2 Former tobacco use GERD (gastroesophageal reflux disease) HLD (hyperlipidemia) HTN (hypertension) HATTIE on CPAP TIA (transient ischemic attack) Home Medications Insulin Glargine,Hum.rec.anlog 45 unit SQ QHS diabetes 09/06/18 [History Last Taken 11/21/21] Iron 65 mg PO DAILY supplement 09/06/18 [History Last Taken 11/21/21] Novolog Flexpen 12 unit SQ BREAKFAST diabetes 09/06/18 [History Last Taken 11/21/21] traMADol 50 mg PO QHS pain 09/06/18 [History Last Taken 11/21/21] aspirin 81 mg capsule 81 mg PO DAILY heart health 11/22/21 [History Last Taken 11/21/21] buspirone 5 mg tablet 5 mg PO QHS depression/anxiety 11/22/21 [History Last Taken 11/21/21] cetirizine 10 mg tablet 10 mg PO QHS allergies 11/22/21 [History Last Taken 11/21/21] gabapentin 600 mg tablet 300 mg PO DAILY neuropathy 11/22/21 [History Last Taken 11/21/21] gabapentin 600 mg tablet 900 mg PO QHS neuropathy 11/22/21 [History Last Taken 11/21/21] lisinopril 5 mg tablet 5 mg PO DAILY blood pressure 11/22/21 [History Last Taken 11/21/21] multivitamin 1 tab PO DAILY supplement 11/22/21 [History Last Taken 11/21/21] sertraline 100 mg tablet 100 mg PO DAILY depression/anxiety 11/22/21 [History Last Taken 11/21/21] tamsulosin 0.4 mg capsule 0.8 mg PO QHS urine flow 11/22/21 [History Last Taken 11/21/21] trazodone 50 mg tablet 25 mg PO QHS sleep 11/22/21 [History Last Taken 11/21/21] atorvastatin 40 mg tablet 40 mg PO QHS #90 tabs 11/24/21 [Rx Last Taken Unknown] amoxicillin 875 mg-potassium clavulanate 125 mg tablet 875 mg PO Q12H #20 TABLETS 01/29/22 [Rx Last Taken Unknown] Allergy/AdvReac Type Severity Reaction Status Date / Time No Known Allergies Allergy Verified 01/29/22 09:55 Family History (Updated 11/22/21 @ 21:[address] Felicia Hester MD) Mother ALS (amyotrophic lateral sclerosis) Father BPH (benign prostatic hyperplasia) CAD (coronary artery disease) Sister Diabetes Surgical History History of appendectomy History of back surgery History of umbilical hernia repair Social History household members: other details: Significant other present, girlfriend x 1 year. Smoking Status: Current some day smoker tobacco type: cigars how long ago did patient quit smoking: Quit cigarette tobacco 02/09 ppd x 25 yrs, picked up cigar 1-2/day. alcohol intake: current alcohol intake frequency: a few times a week substance use type: does not use ROS ROS ED Constitutional Constitutional ED: Denies chills or fever(s) Eyes Eyes: Denies change in vision or diplopia ENT ENT ED: Denies rhinorrhea or sore throat Cardiovascular Cardiovascular: Reports chest pain; Denies orthopnea, palpitations or pedal edema Respiratory/Chest Respiratory/Chest: Reports as per HPI, cough and dyspnea; Denies orthopnea or sputum Gastrointestinal Gastrointestinal: Denies abdominal pain, diarrhea, nausea or vomiting Genitourinary Genitourinary ED: Denies dysuria or hematuria Musculoskeletal Musculoskeletal: Denies back pain or neck pain Integumentary Denies abscess or rash Neurologic Neurologic: Denies headache(s), paresthesias or weakness Psychiatric Psychiatric: Denies anxiety or suicidal thoughts EXAM Physical Exam Const Vital Signs: 01/29/22 09:56 01/29/22 10:47 01/29/22 11:46 Temperature 96.2 F L Temperature Source Temporal Pulse Rate 73 57 L Respiratory Rate 18 16 Blood Pressure 152/74 H 126/69 H Blood Pressure Mean 100 88 Pulse Ox 98 96 Oxygen Delivery Method Room Air Room Air Room Air Positive well nourished and well developed General Appearance ED: well developed and NAD HEENT Reports moist mucous membranes normocephalic and atraumatic Eyes PERRL and EOMs intact bilaterally Neck full ROM and supple Chest Wall inspection of chest normal Chest Narrative: Tenderness in the left anterior mid-lower chest wall reproducing the patient's symptoms. No crepitance, no skin abnormalities, the area is relatively diffuse without tenderness focally at a rib. Resp normal respiratory effort and clear to auscultation bilaterally Cardio regular rate, regular rhythm and no murmurs GI non-tender and non-distended Auscultation: normoactive bowel sounds Palpation: soft Back/Spine no CVA tenderness General Back: other FROM Extremity normal to inspection General Extremety ED: Negative for edema, pulses abnormal or tenderness General Extremity: Negative for edema or pulses abnormal Neuro oriented x3, CN's II-XII intact bilaterally and no sensory deficits noted Sensorium / Orientation: awake and alert Motor Exam: strength 5/5 throughout Skin no rashes or lesions noted and no wounds Heart Score History: Slightly/Non-Suspicious ECG: Normal Age: >/= 65 years Risk Factors: 1 or 2 Risk Factors Troponin: </= Normal Limit Score: 3 MDM MDM MDM Narrative Medical decision making narrative: Clinically I think the patient is having chest wall discomfort. I can reproduce it with palpation, the only reason I did more testing was because of his age and the fact that he complained of some dyspnea that really did not necessarily make sense given the discomfort he is having unless it is anxiety which is in the differential, however the two-view chest x-ray shows some blunting in the left lower lung and radiology agrees that it may be early infiltrate difficult to rule out especially with him having symptoms of dyspnea and a lingering chronic cough. He does not have a leukocytosis, it certainly could be atelectasis and indicative of no infection, but I think it would be reasonable to put him on an antibiotic as a just in case and allow him to go back to work. His cardiac enzymes are negative after several days of constant discomfort I do not think he needs a delta or any emergent testing otherwise right now, his EKG mitral rotation is normal. Discussed all this with him he is comfortable with that plan. Lab Data Attestation: I reviewed the patient's lab results. Labs: Laboratory Results - last 24 hr 01/29/22 01/29/22 10:00 10:00 WBC 5.7 RBC 3.48 L Hgb 11.4 L Hct 33.7 L MCV 96.8 H MCH 32.8 H MCHC 33.8 RDW Std Deviation 46.2 H RDW Coeff of Haley 13.2 Plt Count 145 L MPV 10.3 Immature Gran % (Auto) 1.100 H Neut % (Auto) 66.0 Lymph % (Auto) 20.0 [place] % (Auto) 7.4 Eos % (Auto) 4.6 Baso % (Auto) 0.9 Absolute Neuts (auto) 3.7 Absolute Lymphs (auto) 1.13 Nucleated RBC % 0 Sodium 140 Potassium 4.2 Chloride 107 Carbon Dioxide 30.0 Anion Gap 3 L BUN 21 H Creatinine 1.01 Estim Creat Clear Calc 72.48 Est GFR (MDRD) Af Amer 94 Est GFR (MDRD) Non-Af 78 BUN/Creatinine Ratio 20.8 H Glucose 137 H Calcium 9.0 Troponin I High Sens 6 Radiography Chest X-Ray - ED: 2 View, Read by ED Physician and Left Infiltrate (vs. atelectasis) Diagnostic Testing: Clinical Impression(s) from Imaging Studies Chest X-Ray 01/29/22 10:40 IMPRESSION: Increased markings in the left lung base suggestive of either atelectasis and/or early infiltrate. Electronically Signed: Kulwant Lentz MD at 11:27 EST , Rhythm Strip Rhythm Strip: Sinus Rhythm Rate: 60 Ectopy: None EKG Initial EKG: Attestation: I personally reviewed and interpreted this EKG as follows: Interpretation: Sinus Rhythm and No Acute Injury Pattern Comments: normal EKG Discharge Plan Triage Chief Complaint: Chest Pain ED Provider: Sanjay Kathleen Dx/Rx/DC Orders Clinical Impression: Strain of chest wall, Dyspnea, Chest pain, unspecified Instructions: ED Chest Wall Strain Prescriptions: New amoxicillin-pot clavulanate [amoxicillin-pot clavulanate] 875-125 mg tablet 875 mg PO Q12H Qty: 20 0RF No Action Insulin Glargine,Hum.rec.anlog 45 unit SQ QHS Iron 65 mg PO DAILY Novolog Flexpen 12 unit SQ BREAKFAST traMADol 50 mg PO QHS multivitamin Tablet 1 tab PO DAILY buspirone 5 mg Tablet 5 mg PO QHS gabapentin 600 mg Tablet 300 mg PO DAILY gabapentin 600 mg Tablet 900 mg PO QHS trazodone 50 mg Tablet 25 mg PO QHS cetirizine 10 mg Tablet 10 mg PO QHS sertraline 100 mg Tablet 100 mg PO DAILY tamsulosin 0.4 mg Capsule 0.8 mg PO QHS lisinopril 5 mg Tablet 5 mg PO DAILY aspirin 81 mg Capsule 81 mg PO DAILY atorvastatin 40 mg Tablet 40 mg PO QHS Qty: 90 0RF Stand Alone Forms: Work / School Excuse [facility] Care Provider[facility] [facility] [Primary [facility]] - 1 Week if not improving Disposition Disposition: Home, Self Care
[2022-01-29 10:51] LABS: Absolute Lymphocyte Count 1.13 X10^3/uL (0.83-4.51); Absolute Neutrophil Count 3.7 X10^3/uL (2.0-7.7); Basophil# 0.05 X10^3/uL; Basophil% 0.9 % (0-1); Eosinophil# 0.26 X10^3/uL; Eosinophils% 4.6 % (0-5); Hematocrit 33.7 % (40-54); Hemoglobin 11.4 g/dL (13.0-16.5); Lymphocyte # 1.13 X10^3/ul (0.83-4.51); Mean Corp Hgb Conc 33.8 g/dL (32-36); Mean Corpuscular Hgb 32.8 pg (27.0-32.0); Mean Corpuscular Volume 96.8 fL (80-94); Mean Platelet Vol. 10.3 fl (6.2-12.0); Monocyte# 0.42 X10^3/uL; Monocyte% 7.4 % (0-10); NRBC Flagged by Analyzer 0 % (0-5); Neutrophil # 3.74 X10^3/uL (2.7-7.7); Platelet Count 145 K/mm3 (150-450); RBC Distribution Width CV 13.2 % (11.6-14.6); RBC Distribution Width SD 46.2 fl (35.1-43.9); Red Blood Count 3.48 M/mm3 (4.6-6.2); White Blood Count 5.7 K/mm3 (4.4-11.0)
[2022-01-29 11:16] LABS: Anion Gap 3 (5-15); BUN 21 mg/dL (7-18); BUN/Creat Ratio 20.8 RATIO (10-20); Chloride 107 mmol/L (98-107); Creatinine, Serum 1.01 mg/dL (0.70-1.30); EST Glomerular Filtration Rate 78 mL/min (>60); Est Glom Filt Rate - Afr Amer 94 mL/min (>60); Estimated Creatinine Clearance 72.48 ml/min; Glucose 137 mg/dL (74-106); Potassium 4.2 mmol/L (3.5-5.1); Sodium Level 140 mmol/L (136-145); Troponin-I HS 6 pg/mL (3.0-78.0)
[2022-01-29 11:46] VITALS: BP 126/69; PULSE 57; RESP 16; O2SAT 96
[2022-01-29 13:02] VITALS: BP 143/73; PULSE 58; RESP 16; O2SAT 98
== END 2022-01-29 13:04 | disposition home or self-care (01) ==
LOC: ED 10:48
PROVIDERS: Emergency Provider Emergency Medicine; Visit Provider Emergency Medicine
DX: S29.011A Strain of muscle and tendon of front wall of thorax, initial encounter (principal); E11.9 Type 2 diabetes mellitus without complications; X58.XXXA Exposure to other specified factors, initial encounter; I10 Essential (primary) hypertension; R06.00 Dyspnea, unspecified; E78.5 Hyperlipidemia, unspecified; N40.0 Benign prostatic hyperplasia without lower urinary tract symptoms; G47.33 Obstructive sleep apnea (adult) (pediatric); F17.290 Nicotine dependence, other tobacco product, uncomplicated; Z79.82 Long term (current) use of aspirin; Z79.899 Other long term (current) drug therapy; Z86.73 Personal history of transient ischemic attack (TIA), and cerebral infarction without residual deficits
CPT/HCPCS: 71046; 80048; 84484; 85025; 93005; 99284; A4216

== ENCOUNTER 2022-11-02 17:42 | Inpatient (IN) | payer OTHER, SELFPAY ==
[2022-11-02 17:44] VITALS: BP 121/61; PULSE 81; RESP 16; TEMP 36.2; O2SAT 98; BMI 30.2
[2022-11-02 18:11] LABS: Absolute Lymphocyte Count 0.92 X10^3/uL (0.83-4.51); Absolute Neutrophil Count 4.3 X10^3/uL (2.0-7.7); Basophil# 0.03 X10^3/uL; Basophil% 0.5 % (0-1); Eosinophil# 0.16 X10^3/uL; Eosinophils% 2.7 % (0-5); Hematocrit 22.8 % (40-54); Hemoglobin 7.8 g/dL (13.0-16.5); Lymphocyte # 0.92 X10^3/ul (0.83-4.51); Lymphocyte % 15.7 % (19-41); Mean Corp Hgb Conc 34.2 g/dL (32-36); Mean Corpuscular Hgb 33.2 pg (27.0-32.0); Mean Platelet Vol. 10.2 fl (6.2-12.0); Monocyte# 0.41 X10^3/uL; NRBC Flagged by Analyzer 0 % (0-5); Neutrophil # 4.26 X10^3/uL (2.7-7.7); Neutrophil % 72.6 % (47-70); Platelet Count 148 K/mm3 (150-450); RBC Distribution Width CV 13.2 % (11.6-14.6); RBC Distribution Width SD 45.4 fl (35.1-43.9); Red Blood Count 2.35 M/mm3 (4.6-6.2); White Blood Count 5.9 K/mm3 (4.4-11.0)
[2022-11-02 18:24] LABS: Anion Gap 5 (5-15); BUN 25 mg/dL (7-18); BUN/Creat Ratio 21.9 RATIO (10-20); Chloride 106 mmol/L (98-107); Creatinine, Serum 1.14 mg/dL (0.70-1.30); EST Glomerular Filtration Rate 67 mL/min (>60); Est Glom Filt Rate - Afr Amer 82 mL/min (>60); Estimated Creatinine Clearance 64.22 ml/min; Glucose 275 mg/dL (74-106); Potassium 3.9 mmol/L (3.5-5.1); Sodium Level 138 mmol/L (136-145)
[2022-11-02 19:03] VITALS: O2SAT 96
[2022-11-02] MEDS: Ondansetron 4 MG/2 ML Vial IV (19:16)
--- NOTE | 2022-11-02 19:19 | EX.ED.DYSGE1 ---
HPI <PIERRE Garcia - Last Filed: 11/02/22 21:01> History of Present Illness Chief Complaint: GI Bleed Narrative Narrative: Patient presenting today due to vomiting blood on Wednesday. He reports that he began to have abdominal discomfort and had 1 episode of vomiting that he describes as being black in appearance. He then had a large bowel movement that consisted of dark red blood. He reports that he has not had a bowel movement since but no longer has any abdominal pain. He denies a history of gastric ulcers or GI bleed, he is not on any blood thinners. He reports that he feels lightheaded, short of breath, and fatigued. He reports a history of diabetes mellitus. He denies any chest pain. [facility] <PIERRE Garcia - Last Filed: 11/02/22 21:01> [facility] Medical History Anxiety and depression BPH (benign prostatic hyperplasia) Chronic anemia Diabetes mellitus, type 2 Former tobacco use GERD (gastroesophageal reflux disease) HLD (hyperlipidemia) HTN (hypertension) HATTIE on CPAP TIA (transient ischemic attack) Home Medications Insulin Glargine,Hum.rec.anlog 45 unit SQ QHS diabetes 09/06/18 [History Last Taken 11/21/21] Iron 65 mg PO DAILY supplement 09/06/18 [History Last Taken 11/21/21] Novolog Flexpen 12 unit SQ TID PRN diabetes 09/06/18 [History Last Taken 11/21/21] aspirin 81 mg capsule 81 mg PO DAILY heart health 11/22/21 [History Last Taken 11/21/21] buspirone 5 mg tablet 5 mg PO QHS depression/anxiety 11/22/21 [History Last Taken 11/21/21] cetirizine 10 mg tablet 10 mg PO QHS allergies 11/22/21 [History Last Taken 11/21/21] multivitamin 1 tab PO DAILY supplement 11/22/21 [History Last Taken 11/21/21] sertraline 100 mg tablet 100 mg PO DAILY depression/anxiety 11/22/21 [History Last Taken 11/21/21] tamsulosin 0.4 mg capsule 0.4 mg PO QHS urine flow 11/22/21 [History Last Taken 11/21/21] trazodone 50 mg tablet 25 mg PO QHS sleep 11/22/21 [History Last Taken 11/21/21] gabapentin 300 mg capsule 300 mg PO BID 11/02/22 [History Last Taken Unknown] lisinopril 20 mg tablet 20 mg PO DAILY 11/02/22 [History Last Taken Unknown] naproxen 500 mg tablet (Naprosyn) 500 mg PO BID 11/02/22 [History Last Taken Unknown] Allergy/AdvReac Type Severity Reaction Status Date / Time No Known Allergies Allergy Verified 11/02/22 17:44 Family History Mother ALS (amyotrophic lateral sclerosis) Father BPH (benign prostatic hyperplasia) CAD (coronary artery disease) Sister Diabetes Surgical History History of appendectomy History of back surgery History of umbilical hernia repair Social History household members: other details: Significant other present, girlfriend x 1 year. Smoking Status: Current some day smoker tobacco type: cigars how long ago did patient quit smoking: Quit cigarette tobacco 02/09 ppd x 25 yrs, picked up cigar 1-2/day. alcohol intake: current alcohol intake frequency: a few times a week substance use type: does not use ROS <PIERRE Garcia - Last Filed: 11/02/22 21:01> ROS ED Constitutional Constitutional ED: Reports fatigue; Denies chills or fever(s) Cardiovascular Cardiovascular: Denies chest pain or palpitations Respiratory/Chest Respiratory/Chest: Reports dyspnea; Denies cough Gastrointestinal Gastrointestinal: Denies abdominal pain, nausea or vomiting Genitourinary Genitourinary ED: Denies dysuria, hematuria or urinary urgency Musculoskeletal Musculoskeletal: Denies arthralgias or myalgias Integumentary Denies rash Neurologic Neurologic: Reports weakness; Denies paresthesias EXAM <PIERRE Garcia - Last Filed: 11/02/22 21:01> Physical Exam Const Vital Signs: 11/02/22 17:44 11/02/22 19:03 11/02/22 19:32 Temperature 97.1 F L Temperature Source Temporal Pulse Rate 81 Respiratory Rate 16 Blood Pressure 121/61 H Blood Pressure Mean 81 Pulse Ox 98 96 96 Oxygen Delivery Method Room Air Room Air 11/02/22 21:00 Temperature Temperature Source Pulse Rate Respiratory Rate Blood Pressure 134/60 H Blood Pressure Mean 84 Pulse Ox Oxygen Delivery Method Positive well nourished, well developed and no apparent distress General Appearance ED: well developed HEENT Reports normocephalic and head/scalp atraumatic Mouth ED: Yes moist mucous membranes normal Eyes PERRL and EOMs intact bilaterally Neck full ROM and supple Chest Wall inspection of chest normal Resp normal respiratory effort and clear to auscultation bilaterally Cardio regular rate and regular rhythm GI soft to palpation, non-tender, non-distended and no masses GI Narrative: Rectal examination performed, there is no visible stool but stool occult will be sent. Back/Spine normal ROM and normal to inspection Extremity normal to inspection and full ROM Neuro oriented x3, CN's II-XII intact bilaterally, moves all extremities, no focal motor deficits and no sensory deficits noted Sensorium / Orientation: awake and alert Psych mental status grossly normal and thought process normal Skin no rashes or lesions noted and no wounds <Dr. Octavio Camargo DO - Last Filed: 11/02/22 22:02> Physical Exam Const Vital Signs: 11/02/22 17:44 11/02/22 19:03 11/02/22 19:32 Temperature 97.1 F L Temperature Source Temporal Pulse Rate 81 Respiratory Rate 16 Blood Pressure 121/61 H Blood Pressure Mean 81 Pulse Ox 98 96 96 Oxygen Delivery Method Room Air Room Air 11/02/22 21:00 Temperature Temperature Source Pulse Rate Respiratory Rate Blood Pressure 134/60 H Blood Pressure Mean 84 Pulse Ox Oxygen Delivery Method [facility] [place] <PIERRE Garcia - Last Filed: 11/02/22 21:01> [facility] Narrative Medical decision making narrative: Patient presenting due to an episode of coffee-ground emesis that occurred on Wednesday. He then had a large bowel movement that consisted of dark red blood. He did show me a picture of his bowel movement and there was a large amount of dark red blood in the toilet. No prior history of GI bleed. He is nontoxic-appearing, vitals are unremarkable. He is pale appearing. Labs obtained to rule out leukocytosis, anemia, electrolyte abnormality. H&H is 7.8 and 22.8. The last hemoglobin we have on record is from January 2022 and it is 11.4. Denies a history of anemia. His BUN is slightly elevated at 25. At this time I do not feel that blood transfusion is indicated but he will be given a dose of Protonix. I will speak with the hospitalist regarding admission. His Hemoccult is negative but there was no stool present during my rectal exam. Lab Data Attestation: I reviewed the patient's lab results. Labs: Laboratory Results - last 24 hr 11/02/22 11/02/22 11/02/22 17:52 17:53 20:52 WBC 5.9 RBC 2.35 L Hgb 7.8 L Hct 22.8 L MCV 97.0 H MCH 33.2 H MCHC 34.2 RDW Std Deviation 45.4 H RDW Coeff of Haley 13.2 Plt Count 148 L MPV 10.2 Immature Gran % (Auto) 1.500 H Neut % (Auto) 72.6 H Lymph % (Auto) 15.7 L [place] % (Auto) 7.0 Eos % (Auto) 2.7 Baso % (Auto) 0.5 Absolute Neuts (auto) 4.3 Absolute Lymphs (auto) 0.92 Nucleated RBC % 0 Sodium 138 Potassium 3.9 Chloride 106 Carbon Dioxide 27.0 Anion Gap 5 BUN 25 H Creatinine 1.14 Estim Creat Clear Calc 64.22 Est GFR (MDRD) Af Amer 82 Est GFR (MDRD) Non-Af 67 BUN/Creatinine Ratio 21.9 H Glucose 275 H Calcium 8.0 L Troponin I High Sens 6 Blood Type A POSITIVE Antibody Screen NEGATIVE Radiography Diagnostic Testing: Clinical Impression(s) from Imaging Studies Abdomen/Pelvis CTA 11/02/22 20:24 IMPRESSION: No acute findings in the abdomen or pelvis. No active contrast extravasation. Electronically Signed: Sanford Greenfield MD at 21:27 EDT , EKG Initial EKG: Comments: 74 bpm, normal sinus rhythm, no ST elevation, reviewed and interpreted by attending ED physician <Dr. Octavio Camargo, DO - Last Filed: 11/02/22 22:02> [facility] Lab Data Lab results narrative: I have personally reviewed the patient's chest x-ray. Chest x-ray is unremarkable for pulmonary edema, pneumothorax, pneumonia or focal cardiopulmonary abnormality. CBC with severe anemia, no leukocytosis to suggest systemic inflammation, noted thrombocytopenia BMP without significant electrolyte abnormalities, there is no anion gap, no acute kidney injury. There is noted hyperglycemia Troponin is negative, no evidence of myocardial ischemia Labs: Laboratory Results - last 24 hr 11/02/22 11/02/22 11/02/22 17:52 17:53 20:52 WBC 5.9 RBC 2.35 L Hgb 7.8 L Hct 22.8 L MCV 97.0 H MCH 33.2 H MCHC 34.2 RDW Std Deviation 45.4 H RDW Coeff of Haley 13.2 Plt Count 148 L MPV 10.2 Immature Gran % (Auto) 1.500 H Neut % (Auto) 72.6 H Lymph % (Auto) 15.7 L [place] % (Auto) 7.0 Eos % (Auto) 2.7 Baso % (Auto) 0.5 Absolute Neuts (auto) 4.3 Absolute Lymphs (auto) 0.92 Nucleated RBC % 0 Sodium 138 Potassium 3.9 Chloride 106 Carbon Dioxide 27.0 Anion Gap 5 BUN 25 H Creatinine 1.14 Estim Creat Clear Calc 64.22 Est GFR (MDRD) Af Amer 82 Est GFR (MDRD) Non-Af 67 BUN/Creatinine Ratio 21.9 H Glucose 275 H Calcium 8.0 L Troponin I High Sens 6 Blood Type A POSITIVE Antibody Screen NEGATIVE Radiography Chest X-Ray - ED: Read by ED Physician Diagnostic Testing: Clinical Impression(s) from Imaging Studies Abdomen/Pelvis CTA 11/02/22 20:24 IMPRESSION: No acute findings in the abdomen or pelvis. No active contrast extravasation. Electronically Signed: Sanford Greenfield MD at 21:27 EDT , Treatment and Re-Evaluation :: ED attending note: I evaluated the patient in conjunction with the TESSY. I agree with his/her statements and above findings. I have personally performed a face to face assessment of the patient and have reviewed the TESSY Note. I performed a substantive portion of the visit including all aspects of the following. I personally saw the patient performed chart review, physical exam, reviewed labs, imaging (if obtained), and formulated a treatment and management plan. Brief history: 71-year-old male here with concern for GI bleed. Notes vomiting coffee grounds. Notes dark stools. Also notes dizziness and shortness of breath. No blood thinners noted. The patient denies recent surgery in the last 4 weeks or immobilization in the last 3 days, denies previous diagnosis of DVT or PE, hemoptysis, unilateral leg swelling or malignancy with treatment the last 6 months or palliative. No estrogen use noted. Patient denies abdominal pain to me. Exam: Nursing triage notes reviewed, Vital signs reviewed Constitutional: please see mdm HENT: MMM Eyes: Pupils equal round and reactive to light, Extraocular muscles intact Neck: No stridor, no JVD, full neck ROM Lungs: Clear to auscultation, No wheezing or rales. No increased work of breathing, no conversational dyspnea, no accessory muscle use, no nasal flaring. No respiratory distress noted Heart: Regular rate and rhythm, No murmurs, No rubs and No gallops, 2+ distal pulses (radial, femoral, posterior tibial) in all extremities Abdomen: Soft, there is no tenderness, rigidity, rebound or guarding, no obvious peritoneal signs, no palpable pulsatile abdominal masses, no auscultated abdominal bruit : No CVAT Extremities: No edema Neuro: Alert and oriented x3, neuro exam at baseline, cranial nerves II through XII are intact. No pain with extraocular muscle movement. There is negative test of skew. 5 of 5 strength in upper and lower extremities in flexion extension. Intact sensation to light touch in upper and lower extremity dermatomes. No truncal or extremity ataxia. No dysdiadochokinesia. Normal gait. 2+ reflexes in upper and lower extremities. No meningeal signs. Negative Babinski. NIH of 0. Skin: Mucosal pallor noted MDM/plan: Chief Complaint: Coffee-ground emesis, melena, shortness of breath and dizziness External records reviewed: No blood thinners, no GI doctor visits Factors affecting care: Hyperlipidemia, type 2 diabetes, GERD, hypertension, TIA Social determinants of health: None History obtained from others: The patient's MDM narrative: Patient is hemodynamically stable, afebrile, nontoxic-appearing. Abdomen was soft nontender with no peritoneal signs. I considered the following differential diagnosis: GI bleed, severe anemia, pulmonary embolism ACS, arrhythmia, pneumonia, PE, intra-abdominal pathology I considered pulm embolism however the patient low risk Wells score I have a low suspicion for pulmonary embolism in the setting of hematemesis, coffee-ground emesis and severe anemia are better explanations for his symptoms. I obtained a broad lab and imaging work-up to further elucidate etiologies. Complaint specifically obtained chest x-ray rule out pneumonia signs of heart failure, EKG rule out arrhythmia, ACS, troponin. Also obtained a CT scan of patient's abdomen with IV contrast to rule out any signs of active extravasation. EKG with normal sinus rhythm, normal axis, no intervals, no STEMI Chest x-ray read and reviewed myself shows no evidence of intrathoracic abnormality Given the patient's severe anemia will admit for upper GI bleed. Did discuss the case with Dr. Wahl (brand advocate on-call) he recommended starting octreotide drip as well as Protonix drip. Consults: Internal medicine, gastroenterology Shared decision making: I will have a discussion with the patient and or visitors regarding risk/benefits of further testing or admission. They will be made aware of of the risk/benefits inherent in this decision they will be given the opportunity to voice understanding. Impression: 1. Upper GI bleed 2. Severe anemia 3. Thrombocytopenia 4. Hyperglycemia Disposition: Admit to [facility] Discharge Plan Dx/Rx/DC Orders Clinical Impression: Fatigue, Shortness of breath, Light-headed, Acute GI bleeding Disposition Disposition: Acute Care Hospital [facility]
[2022-11-02 19:32] VITALS: O2SAT 96
--- NOTE | 2022-11-02 20:24 | CT_ITS ---
INDICATION: abdominal pain, GI bleed EXAMINATION: CTA abdomen and pelvis - TECHNIQUE: Routine abdominal CT angiogram protocol was performed with IV contrast. MIP images provided. A radiation dose optimization technique was used for this scan. IV Contrast dosage and agent: 100 cc [id number] RADIATION DOSAGE (If Supplied By Facility): CTDIvol = ( 28.48 ) mGy, DLP = ( 1375.50 ) mGycm COMPARISON: No relevant prior comparison study available FINDINGS: Lung bases: Bibasilar dependent changes. Liver: Normal. No bile ductal dilatation. Gallbladder: Normal. Spleen: Normal. Adrenal glands: Normal. Kidneys: Normal. No hydronephrosis or stone formation. Pancreas:Normal. Bowel gas pattern: Nonobstructive. Appendix: Appendix not identified. No inflammatory changes along the cecum present. Free air: None. Free fluid: None. Pelvis: Pelvic organs: No mass lesion noted. Bone survey: No aggressive bony lesions. No acute fractures. Posterior lumbar fusion with hardware L4-5. Adenopathy: No pathologic adenopathy detected. Other: Fat-containing left inguinal hernia. Vascular: Normal vascular anatomy, no evidence of contrast extravasation. CT/CTA Abd/Pelvis W/WO Contrast IMPRESSION: No acute findings in the abdomen or pelvis. No active contrast extravasation. Electronically Signed: Sanford Greenfield MD at 21:27 EDT ,
[2022-11-02] MEDS: Pantoprazole Sodium 80 MG in 0.9% Normal Saline (50mL Bag) 15 ML 420 MG IV BOLUS (20:51)
[2022-11-02 21:00] VITALS: BP 134/60
--- NOTE | 2022-11-02 21:10 | RAD_ITS ---
INDICATION: SOB EXAMINATION/TECHNIQUE: X-RAY - XR Chest 1 View COMPARISON: January 29, 2022 FINDINGS: LINES/DEVICES: None. LUNGS: No consolidation, edema or effusion. No pneumothorax. MEDIASTINUM AND CARDIOVASCULAR STRUCTURES: Cardiac silhouette not enlarged. Central airways and mediastinal contour are unremarkable. BONES AND SOFT TISSUES: Degenerative vertebral changes. RAD/Chest 1 View (Portable) IMPRESSION: No radiographic evidence of acute cardiopulmonary disease. Electronically Signed: Colt Herrera DO at 22:08 EDT ,
[2022-11-02 21:17] LABS: Troponin-I HS 6 pg/mL (3.0-78.0)
--- NOTE | 2022-11-02 21:47 | PCM.HP.STD ---
HPI - General General Date of Admission: 11/02/22 Date of Service: 11/02/22 Chief Complaint: Dark red vomitus and stool HPI Narrative KAITLYNN SHARP, is a 71 M with a significant history of neuropathy and back pain who is a cane; on daily aspirin and NSAIDs presents emergency department with dark red vomitus and dark red stool that occurred on Wednesday10/30/2022. The episode was 1 time. Associated with his symptoms is abdominal pain that has since resolved. Patient continues to have lightheadedness, fatigue, and weakness. At the emergency department patient was found to have a drop in his hemoglobin. ED doctor discussed the case with GI doc and patient was started on Protonix and octreotide drip. [facility]. Because of patient's symptoms of dark red vomitus and dark red stool occurred after hours on Wednesday patient called the [facility] on 11/02/2022 and was instructed to come to the emergency department. [facility] Medical History Anxiety and depression BPH (benign prostatic hyperplasia) Chronic anemia Diabetes mellitus, type 2 Former tobacco use GERD (gastroesophageal reflux disease) HLD (hyperlipidemia) HTN (hypertension) HATTIE on CPAP TIA (transient ischemic attack) Home Medications Insulin Glargine,Hum.rec.anlog 45 unit SQ QHS diabetes 09/06/18 [History Last Taken 11/21/21] Iron 65 mg PO DAILY supplement 09/06/18 [History Last Taken 11/21/21] Novolog Flexpen 12 unit SQ TID PRN diabetes 09/06/18 [History Last Taken 11/21/21] aspirin 81 mg capsule 81 mg PO DAILY heart health 11/22/21 [History Last Taken 11/21/21] buspirone 5 mg tablet 5 mg PO QHS depression/anxiety 11/22/21 [History Last Taken 11/21/21] cetirizine 10 mg tablet 10 mg PO QHS allergies 11/22/21 [History Last Taken 11/21/21] multivitamin 1 tab PO DAILY supplement 11/22/21 [History Last Taken 11/21/21] sertraline 100 mg tablet 100 mg PO DAILY depression/anxiety 11/22/21 [History Last Taken 11/21/21] tamsulosin 0.4 mg capsule 0.4 mg PO QHS urine flow 11/22/21 [History Last Taken 11/21/21] trazodone 50 mg tablet 25 mg PO QHS sleep 11/22/21 [History Last Taken 11/21/21] gabapentin 300 mg capsule 300 mg PO BID 11/02/22 [History Last Taken Unknown] lisinopril 20 mg tablet 20 mg PO DAILY 11/02/22 [History Last Taken Unknown] naproxen 500 mg tablet (Naprosyn) 500 mg PO BID 11/02/22 [History Last Taken Unknown] Allergy/AdvReac Type Severity Reaction Status Date / Time No Known Allergies Allergy Verified 11/02/22 17:44 Family History Mother ALS (amyotrophic lateral sclerosis) Father BPH (benign prostatic hyperplasia) CAD (coronary artery disease) Sister Diabetes Surgical History History of appendectomy History of back surgery History of umbilical hernia repair Social History household members: other details: Significant other present, girlfriend x 1 year. Smoking Status: Current some day smoker tobacco type: cigars how long ago did patient quit smoking: Quit cigarette tobacco 02/09 ppd x 25 yrs, picked up cigar 1-2/day. alcohol intake: current alcohol intake frequency: a few times a week substance use type: does not use ROS ROS Narrative Pertinent positives and pertinent negatives as noted in HPI. All other systems were reviewed and are negative Vital Signs Vital Signs Vital Signs: 11/02/22 17:44 11/02/22 19:03 11/02/22 19:32 Temperature 97.1 F L Temperature Source Temporal Pulse Rate 81 Respiratory Rate 16 Blood Pressure 121/61 H Blood Pressure Mean 81 Pulse Ox 98 96 96 Oxygen Delivery Method Room Air Room Air 11/02/22 21:00 Temperature Temperature Source Pulse Rate Respiratory Rate Blood Pressure 134/60 H Blood Pressure Mean 84 Pulse Ox Oxygen Delivery Method Weight Weight: 98.43 kg Body Mass Index (BMI) 30.2 Physical Exam Narrative Physical exam: General: Well-nourished, well-developed. Head: Normocephalic, atraumatic, no tenderness Eyes: Vision is grossly intact. EOMI ENT, no trauma, moist mucous membranes, no rhinorrhea Neck: Nontender, No thyromegaly. CVS: Regular rate and rhythm. S1-S2 present. No murmur, gallop or rub. Respiratory : clear to auscultation bilaterally, chest wall nontender Abdomen: Soft, nontender, nondistended, normal bowel sounds, no masses : Deferred Back: Nontender, no CVA tenderness, Extremities: Nontender full range of motion, no trauma Skin: Normal color, no trauma, abrasions Neuro: Alert, oriented, cranial nerves II through XII grossly intact. Psychiatry: Normal mood. Normal affect. Not depressed. Not anxious. Results Lab / Micro Data 11/02/22 17:52 11/02/22 17:52 Labs: Laboratory Results - last 24 hr 11/02/22 17:52: WBC 5.9, RBC 2.35 L, Hgb 7.8 L, Hct 22.8 L, MCV 97.0 H, MCH 33.2 H, MCHC 34.2, RDW Std Deviation 45.4 H, RDW Coeff of Haley 13.2, Plt Count 148 L, MPV 10.2, Immature Gran % (Auto) 1.500 H, Neut % (Auto) 72.6 H, Lymph % (Auto) 15.7 L, Delta % (Auto) 7.0, Eos % (Auto) 2.7, Baso % (Auto) 0.5, Absolute Neuts (auto) 4.3, Absolute Lymphs (auto) 0.92, Nucleated RBC % 0, Sodium 138, Potassium 3.9, Chloride 106, Carbon Dioxide 27.0, Anion Gap 5, BUN 25 H, Creatinine 1.14, Estim Creat Clear Calc 64.22, Est GFR (MDRD) Af Amer 82, Est GFR (MDRD) Non-Af 67, BUN/Creatinine Ratio 21.9 H, Glucose 275 H, Calcium 8.0 L 11/02/22 17:53: Blood Type A POSITIVE, Antibody Screen NEGATIVE 11/02/22 20:52: Troponin I High Sens 6 Micro: Microbiology 11/02/22 19:30 Stool Stool Occult Blood (YOLANDA) - Final Radiology Impression Abdomen/Pelvis CTA 11/02/22 20:24 IMPRESSION: No acute findings in the abdomen or pelvis. No active contrast extravasation. 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 Patient hemoglobin on 01/29/2022 was 11.4 and on 11/24/2021 was 12.6. Type and cross at the emergency department. Admit to monitored bed on MedSurg. Gentle IV fluids H&H every 6 hours Hold home aspirin and NSAIDs No anticoagulants for DVT prophylaxis Started on Protonix drip and octreotide in the emergency department and continued. Iron studies, and reticulocyte panel ordered. PT/INR ordered for Home iron pill continued. N.p.o. after midnight. Gastroenterology consult Diabetes mellitus neuropathy and nephropathy Cut Basal insulin to 2. Hold prandial insulin. Accu-Chek with correction scale insulin ordered. CKD stage II Stable Trend BMP Hypertension Blood pressure is not within goal Home blood pressure medication continued. Trend blood pressure and adjust blood pressure medications. DVT prophylaxis SCDs. Time spent in the patient's overall evaluation,decision-making process, review of diagnostic data, adjustment of management, discussion with other providers, nursing nursing and ancillary staff involved in patient's care documentation, 65 minutes. Charges/Coding Visit Charges Inpatient E&M: 69816 Init Hosp L3
[2022-11-02] MEDS: Octreotide 0.5 MG in Dextrose 5%-Water (250mL Bag) 250 ML 12.5 MG CONT INF (22:14)
[2022-11-02] MEDS: Pantoprazole Sodium 80 MG in 0.9% Normal Saline (100mL Bag) 80 ML 10 MG CONT INF (22:14)
[2022-11-02 22:16] VITALS: BP 135/72; PULSE 79; RESP 18; TEMP 36.7; O2SAT 96
[2022-11-02 22:26] LABS: AST(SGOT) 12 U/L (15-37); Alanine Aminotransfer ALT/SGPT 27 U/L (16-61); Albumin, Serum 3.5 g/dL (3.2-5.0); Alkaline Phosphatase 81 U/L (45-117); Bilirubin, Direct 0.11 mg/dL (0.00-0.30); Globulin 2.5 g/dL (2.2-4.2)
[2022-11-02 22:42] LABS: Ferritin 54 ng/mL (26-388); Iron 39 ug/dL (65-175); Iron Binding Capacity,Total 283 ug/dL (250-450); PERCENT IRON SATURATION 13.8 % (15.0-55.0)
--- NOTE | 2022-11-02 23:00 | EX.PCM.CON.G ---
HPI Consult Data Date of Consult: 11/02/22 HPI Narrative Reason for Consultation: GI bleed HPI Narrative: KAITLYNN SHARP, is a 71 M who presents due to vomiting blood on Wednesday. He has a significant history of diabetes, hypertension, depression, diabetic neuropathy and back pain. He is on daily aspirin and NSAIDs He reports that he began to have abdominal discomfort and had 1 episode of vomiting that he describes as being black in appearance. He then had a large bowel movement that consisted of dark red blood. He reports that he has not had a bowel movement since but no longer has any abdominal pain. He denies a history of gastric ulcers or GI bleed, he is not on any blood thinners. He reports that he feels lightheaded, short of breath, and fatigued. He reports a history of diabetes mellitus. He denies any chest pain. [facility] Medical History Anxiety and depression BPH (benign prostatic hyperplasia) Chronic anemia Diabetes mellitus, type 2 Former tobacco use GERD (gastroesophageal reflux disease) HLD (hyperlipidemia) HTN (hypertension) HATTIE on CPAP TIA (transient ischemic attack) Home Medications Insulin Glargine,Hum.rec.anlog 45 unit SQ QHS diabetes 09/06/18 [History Last Taken 11/21/21] Iron 65 mg PO DAILY supplement 09/06/18 [History Last Taken 11/21/21] Novolog Flexpen 12 unit SQ TID PRN diabetes 09/06/18 [History Last Taken 11/21/21] aspirin 81 mg capsule 81 mg PO DAILY heart health 11/22/21 [History Last Taken 11/21/21] buspirone 5 mg tablet 5 mg PO QHS depression/anxiety 11/22/21 [History Last Taken 11/21/21] cetirizine 10 mg tablet 10 mg PO QHS allergies 11/22/21 [History Last Taken 11/21/21] multivitamin 1 tab PO DAILY supplement 11/22/21 [History Last Taken 11/21/21] sertraline 100 mg tablet 100 mg PO DAILY depression/anxiety 11/22/21 [History Last Taken 11/21/21] tamsulosin 0.4 mg capsule 0.4 mg PO QHS urine flow 11/22/21 [History Last Taken 11/21/21] trazodone 50 mg tablet 25 mg PO QHS sleep 11/22/21 [History Last Taken 11/21/21] gabapentin 300 mg capsule 300 mg PO BID 11/02/22 [History Last Taken Unknown] lisinopril 20 mg tablet 20 mg PO DAILY 11/02/22 [History Last Taken Unknown] naproxen 500 mg tablet (Naprosyn) 500 mg PO BID 11/02/22 [History Last Taken Unknown] Allergy/AdvReac Type Severity Reaction Status Date / Time No Known Allergies Allergy Verified 11/02/22 17:44 Family History Mother ALS (amyotrophic lateral sclerosis) Father BPH (benign prostatic hyperplasia) CAD (coronary artery disease) Sister Diabetes Surgical History History of appendectomy History of back surgery History of umbilical hernia repair Social History household members: other details: Significant other present, girlfriend x 1 year. Smoking Status: Current some day smoker tobacco type: cigars how long ago did patient quit smoking: Quit cigarette tobacco 02/09 ppd x 25 yrs, picked up cigar 1-2/day. alcohol intake: current alcohol intake frequency: a few times a week substance use type: does not use ROS ROS Narrative Pertinent positives and pertinent negatives as noted in HPI. All other systems were reviewed and are negative Review of Systems ROS Unobtainable: other Constitutional Constitutional: Denies fatigue, fever(s), poor appetite, weight gain or weight loss ENT HEENT: Denies mouth lesions Cardiovascular Cardiovascular: Denies abdominal bloating, abdominal edema or abdominal pain Respiratory/Chest Respiratory/Chest: Denies change in mental status, change in phlegm color, chest congestion or chest tightness Gastrointestinal Gastrointestinal: Denies belching, bloating, change in bowel habits, change in stool character, chewing difficulty, coffee ground emesis, constipation, cramping, diarrhea, dyspepsia, dysphagia, early satiety, excessive flatus, fecal incontinence, heartburn, hematemesis, hematochezia, hemorrhoids, loose stools, melena, nausea, odynophagia, rectal bleeding, tenesmus, vomiting or weight changes Genitourinary Genitourinary: Denies abdominal discomfort, burning urination or itching Musculoskeletal Musculoskeletal: Reports as per HPI; Denies muscle weakness or myalgias Integumentary Integumentary: Denies jaundice Neurologic Neurologic: Denies lack of coordination or weakness Psychiatric Psychiatric: Denies confusion, depression, memory loss, mood swings, paranoia or suicidal ideation Endocrine Endocrinology: Denies systems reviewed and no addt'l complaints, except as documented Hematologic/Lymphatic Hematologic/Lymphatic: Denies anemia, easy bleeding, easy bruising or lymphadenopathy Allergic/Immunologic Allergic/Immunologic: Denies systems reviewed and no addt'l complaints, except as documented Physical Exam Narrative Physical exam: General: Well-nourished, well-developed. Head: Normocephalic, atraumatic, no tenderness Eyes: Vision is grossly intact. EOMI ENT, no trauma, moist mucous membranes, no rhinorrhea Neck: Nontender, No thyromegaly. CVS: Regular rate and rhythm. S1-S2 present. No murmur, gallop or rub. Respiratory : clear to auscultation bilaterally, chest wall nontender Abdomen: Soft, nontender, nondistended, normal bowel sounds, no masses : Deferred Back: Nontender, no CVA tenderness, Extremities: Nontender full range of motion, no trauma Skin: Normal color, no trauma, abrasions Neuro: Alert, oriented, cranial nerves II through XII grossly intact. Psychiatry: Normal mood. Normal affect. Not depressed. Not anxious. Lab / Micro Data 11/03/22 12:30 11/03/22 06:15 Labs: Laboratory Results - last 24 hr 11/02/22 17:52: WBC 5.9, RBC 2.35 L, Hgb 7.8 L, Hct 22.8 L, MCV 97.0 H, MCH 33.2 H, MCHC 34.2, RDW Std Deviation 45.4 H, RDW Coeff of Haley 13.2, Plt Count 148 L, MPV 10.2, Immature Gran % (Auto) 1.500 H, Neut % (Auto) 72.6 H, Lymph % (Auto) 15.7 L, [place] % (Auto) 7.0, Eos % (Auto) 2.7, Baso % (Auto) 0.5, Absolute Neuts (auto) 4.3, Absolute Lymphs (auto) 0.92, Nucleated RBC % 0, Sodium 138, Potassium 3.9, Chloride 106, Carbon Dioxide 27.0, Anion Gap 5, BUN 25 H, Creatinine 1.14, Estim Creat Clear Calc 64.22, Est GFR (MDRD) Af Amer 82, Est GFR (MDRD) Non-Af 67, BUN/Creatinine Ratio 21.9 H, Glucose 275 H, Calcium 8.0 L, Iron 39 L, TIBC 283, Iron Saturation 13.8 L, Ferritin 54, Total Bilirubin 0.30, Direct Bilirubin 0.11, AST 12 L, ALT 27, Alkaline Phosphatase 81, Total Protein 6.0 L, Albumin 3.5, Globulin 2.5 11/02/22 17:53: Blood Type A POSITIVE, Antibody Screen NEGATIVE 11/02/22 20:52: Troponin I High Sens 6 11/02/22 22:51: Retic Count 5.46 H, Immature Retic Fraction 39.10 H, Retic Hgb Equivalent 36.7 H, PT 14.1, INR 1.1 11/03/22 00:30: Hgb 7.3 L, Hct 22.2 L 11/03/22 00:35: POC Glucose 261 H 11/03/22 05:55: POC Glucose 273 H 11/03/22 06:15: Hgb 7.8 L, Hct 23.6 L, Sodium 139, Potassium 4.2, Chloride 108 H, Carbon Dioxide 27.0, Anion Gap 4 L, BUN 19 H, Creatinine 1.11, Estim Creat Clear Calc 65.95, Est GFR (MDRD) Af Amer 84, Est GFR (MDRD) Non-Af 69, BUN/Creatinine Ratio 17.1, Glucose 267 H, Hemoglobin A1c 8.6 H, Calcium 8.2 L 11/03/22 12:13: POC Glucose 149 H 11/03/22 12:30: Hgb 7.6 L, Hct 23.0 L Micro: Microbiology 11/02/22 19:30 Stool Stool Occult Blood (YOLANDA) - Final Radiology Impression Abdomen/Pelvis CTA 11/02/22 20:24 IMPRESSION: No acute findings in the abdomen or pelvis. No active contrast extravasation. Electronically Signed: Sanford Greenfield MD at 21:27 EDT , Chest X-Ray 11/02/22 21:10 IMPRESSION: No radiographic evidence of acute cardiopulmonary disease. 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 Patient hemoglobin on 01/29/2022 was 11.4 and on 11/24/2021 was 12.6. H&H every 6 hours Hold home aspirin and NSAIDs No anticoagulants for DVT prophylaxis Started on Protonix drip and octreotide in the emergency department and continued. Iron studies, and reticulocyte panel ordered. He will undergo an upper endoscopy to evaluate his upper GI tract. He was explained alternatives, risk, benefits include not withstanding bleeding, infection, sepsis, perforation, need for emergent urgent . He will have an ASA of 3. Charges/Coding Visit Charges Inpatient E&M: 36217 Init Hosp L3
[2022-11-02 23:01] LABS: Platelet Count 144 K/mm3 (150-450); RET-HE 36.7 pg (30-35); Reticulocyte Count 5.46 % (0.5-1.5)
[2022-11-02 23:10] LABS: International Normalized Ratio 1.1; Prothrombin Time (Protime)PT. 14.1 SECONDS (11.7-14.9)
[2022-11-02 23:29] VITALS: BP 134/75; PULSE 76; RESP 18; O2SAT 97
[2022-11-02 23:41] VITALS: BMI 30.2
[2022-11-03] VITALS (11 sets, daily range): BP systolic 108–150; BP diastolic 55–99; PULSE 67–85; RESP 8–18; TEMP 36.5–37.1; O2SAT 94–97; BMI 30.2
[2022-11-03] MEDS: 0.9% Normal Saline (1000mL) 1,000 ML 75 ML IV ×2 (00:26→16:48)
[2022-11-03] MEDS: traZODone 50 MG Tablet 25 MG PO ×2 (00:36→21:59)
[2022-11-03] MEDS: busPIRone 5 MG Tablet PO ×2 (00:37→21:58)
[2022-11-03] MEDS: Tamsulosin HCl 0.4 MG Capsule PO ×2 (00:37→21:59)
[2022-11-03] MEDS: Loratadine 10 MG Tablet PO ×2 (00:37→21:58)
[2022-11-03 00:39] LABS: Hematocrit 22.2 % (40-54); Hemoglobin 7.3 g/dL (13.0-16.5)
[2022-11-03] MEDS: Insulin Glargine-YFGN 100 UNIT/ML Pen 22 UNIT SC ×2 (00:39→22:00)
[2022-11-03] MEDS: Sertraline 100 MG Tablet PO ×2 (00:43→21:58)
[2022-11-03] MEDS: Gabapentin 300 MG Capsule PO ×4 (00:45→21:59)
[2022-11-03 01:01] LABS: Bedside Glucose 261 mg/dL (74-106)
[2022-11-03] MEDS: Insulin Lispro 100 UNIT/ML INSULN.PEN SC (05:59)
[2022-11-03 06:26] LABS: Bedside Glucose 273 mg/dL (74-106)
[2022-11-03 06:35] LABS: Hematocrit 23.6 % (40-54); Hemoglobin 7.8 g/dL (13.0-16.5)
[2022-11-03 07:03] LABS: Anion Gap 4 (5-15); BUN 19 mg/dL (7-18); BUN/Creat Ratio 17.1 RATIO (10-20); Calcium,Total 8.2 mg/dL (8.5-10.1); Chloride 108 mmol/L (98-107); Creatinine, Serum 1.11 mg/dL (0.70-1.30); EST Glomerular Filtration Rate 69 mL/min (>60); Est Glom Filt Rate - Afr Amer 84 mL/min (>60); Estimated Creatinine Clearance 65.95 ml/min; Glucose 267 mg/dL (74-106); Potassium 4.2 mmol/L (3.5-5.1); Sodium Level 139 mmol/L (136-145)
--- NOTE | 2022-11-03 08:12 | PCM.PN.HOSP ---
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 (11/02/22) Subjective Subjective Follow-up for GI bleed Objective Data Objective Data Vital Signs: Vital Signs Temp Pulse Resp BP Pulse Ox O2 Del Method 98.2 F 74 16 119/55 L 97 Room Air 11/03/22 06:10 11/03/22 06:10 11/03/22 06:10 11/03/22 06:10 11/03/22 06:10 11/03/22 06:10 Oxygen Delivery Method Room Air Weight: 217 lb Body Mass Index (BMI) 30.2 Intake & Output: Intake and Output for Last 24 Hours 11/01/22 11/02/22 11/03/22 23:59 23:59 23:59 Intake Total 35.38 / 35.38 Balance 35.38 / 35.38 Lab / Micro Data 11/03/22 12:30 11/03/22 06:15 Labs: Laboratory Results - last 24 hr 11/02/22 17:52: WBC 5.9, RBC 2.35 L, Hgb 7.8 L, Hct 22.8 L, MCV 97.0 H, MCH 33.2 H, MCHC 34.2, RDW Std Deviation 45.4 H, RDW Coeff of Haley 13.2, Plt Count 148 L, MPV 10.2, Immature Gran % (Auto) 1.500 H, Neut % (Auto) 72.6 H, Lymph % (Auto) 15.7 L, [place] % (Auto) 7.0, Eos % (Auto) 2.7, Baso % (Auto) 0.5, Absolute Neuts (auto) 4.3, Absolute Lymphs (auto) 0.92, Nucleated RBC % 0, Sodium 138, Potassium 3.9, Chloride 106, Carbon Dioxide 27.0, Anion Gap 5, BUN 25 H, Creatinine 1.14, Estim Creat Clear Calc 64.22, Est GFR (MDRD) Af Amer 82, Est GFR (MDRD) Non-Af 67, BUN/Creatinine Ratio 21.9 H, Glucose 275 H, Calcium 8.0 L, Iron 39 L, TIBC 283, Iron Saturation 13.8 L, Ferritin 54, Total Bilirubin 0.30, Direct Bilirubin 0.11, AST 12 L, ALT 27, Alkaline Phosphatase 81, Total Protein 6.0 L, Albumin 3.5, Globulin 2.5 11/02/22 17:53: Blood Type A POSITIVE, Antibody Screen NEGATIVE 11/02/22 20:52: Troponin I High Sens 6 11/02/22 22:51: Retic Count 5.46 H, Immature Retic Fraction 39.10 H, Retic Hgb Equivalent 36.7 H, PT 14.1, INR 1.1 11/03/22 00:30: Hgb 7.3 L, Hct 22.2 L 11/03/22 00:35: POC Glucose 261 H 11/03/22 05:55: POC Glucose 273 H 11/03/22 06:15: Hgb 7.8 L, Hct 23.6 L, Sodium 139, Potassium 4.2, Chloride 108 H, Carbon Dioxide 27.0, Anion Gap 4 L, BUN 19 H, Creatinine 1.11, Estim Creat Clear Calc 65.95, Est GFR (MDRD) Af Amer 84, Est GFR (MDRD) Non-Af 69, BUN/Creatinine Ratio 17.1, Glucose 267 H, Calcium 8.2 L Micro: Microbiology 11/02/22 19:30 Stool Stool Occult Blood (YOLANDA) - Final Radiography Diagnostic Testing: Radiology Impression Abdomen/Pelvis CTA 11/02/22 20:24 IMPRESSION: No acute findings in the abdomen or pelvis. No active contrast extravasation. Electronically Signed: Sanford Greenfield MD at 21:27 EDT , Chest X-Ray 11/02/22 21:10 IMPRESSION: No radiographic evidence of acute cardiopulmonary disease. Electronically Signed: Colt Herrera DO at 22:08 EDT , Physical Exam Narrative Seen and examined. History taken directly from the patient. Patient is on baby aspirin and NSAID. Takes Naproxen 500 mg twice daily for chronic lower back pain. He knew the complications of GI bleed as was told by PCP. His abdominal pain was also epigastric or upper abdomen, mild dull ache, 3-4/10 intensity, burning in nature associated with heartburn and reflux. Abdominal pain is resolved. Physical exam General: Alert, Oriented x3, Cooperative HEENT: Atraumatic, PERRLA, EOMI, Normocephalic Oral: Oral mucosa moist no Gingival or Mucosal Lesions/ Ulcerations Neck: Supple, No JVD, Negative Carotid Bruits Lungs: Air entry diminished in bilateral lung bases. No crepitation/rhonchi Cardiovascular: Regular rate, Regular Rhythm, Normal S1, Normal S2, soft systolic murmur over LLSB Abdomen: Bowel Sounds Present, Soft, Non Tender, Non-Distended : No renal angle tenderness. No suprapubic tenderness. Extremities: No edema, Capillary Refill Less than 3 Seconds Skin: No rashes, No breakdown Musculoskeletal: No Tenderness to Palpation of Joints or Extremities Neurological: Cranial nerves II-XII grossly intact, DTR 2+/4. No acute focal neurological deficit. Psych/Mental Status: Normal Affect, Appropriate. 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 Patient vomited dark red in color/hematemesis on Wednesday that is started with abdominal discomfort. Patient also had dark red large bowel movement. Abdominal pain has resolved. Denies history of gastric ulcer or GI bleed or blood thinner but patient on aspirin and NSAID for back pain Patient has had symptoms of dizziness fatigue and generalized weakness. Acute blood loss anemia secondary to GI bleed with acute on chronic mixed iron deficiency and anemia of chronic disease: [facility]. His hemoglobin dropped to 7.6 with baseline 11.4 in January 2022 and 12.6 in November 2021. Patient was treated with IV fluid. H&H reviewed. Hold aspirin and NSAID. Preferably, discontinue NSAID with alternative pain medication. Patient on Protonix drip and octreotide drip. GI is consulted. Stool for occult blood negative. Anemia work-up shows low iron, normal TIBC iron saturation 13%. Ferritin 54. Reticulocyte panel shows elevated immature reticulocyte fraction and reticulocyte count. Iron infusion ordered. After EGD, esophageal varices ruled out therefore octreotide drip discontinued continue Protonix drip. The patient had EGD. Impressions : - Esophageal mucosal changes consistent with eosinophilic esophagitis. - Non-bleeding gastric ulcers with no stigmata of bleeding. - Oozing duodenal ulcer with a visible vessel. Injected. Treated with a heater probe. - No specimens collected. Recommendations : - [facility]. - Clear liquid diet. - Continue present medications. 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 Accu-Cheks before meals and at bedtime incorrigible sliding scale. Hold prandial insulin Cut Basal insulin to 2. Hold prandial insulin. Accu-Chek with correction scale insulin ordered. CKD stage II:BUNs/creatinine 19/1.1. Electrolytes in normal range except chloride 108. Monitor BMP INR is 322 went for Hypertension Blood pressure is not within goal Home blood pressure medication continued. Trend blood pressure and adjust blood pressure medications. DVT prophylaxis SCDs. Microbiology Past 72 Hours 11/02/22 19:30 Stool Stool Occult Blood (YOLANDA) - Final Laboratory Results 11/02/22 17:52: WBC 5.9, RBC 2.35 L, Hgb 7.8 L, Hct 22.8 L, MCV 97.0 H, MCH 33.2 H, MCHC 34.2, RDW Std Deviation 45.4 H, RDW Coeff of Haley 13.2, Plt Count 148 L, MPV 10.2, Immature Gran % (Auto) 1.500 H, Neut % (Auto) 72.6 H, Lymph % (Auto) 15.7 L, [place] % (Auto) 7.0, Eos % (Auto) 2.7, Baso % (Auto) 0.5, Absolute Neuts (auto) 4.3, Absolute Lymphs (auto) 0.92, Nucleated RBC % 0, Sodium 138, Potassium 3.9, Chloride 106, Carbon Dioxide 27.0, Anion Gap 5, BUN 25 H, Creatinine 1.14, Estim Creat Clear Calc 64.22, Est GFR (MDRD) Af Amer 82, Est GFR (MDRD) Non-Af 67, BUN/Creatinine Ratio 21.9 H, Glucose 275 H, Calcium 8.0 L, Iron 39 L, TIBC 283, Iron Saturation 13.8 L, Ferritin 54, Total Bilirubin 0.30, Direct Bilirubin 0.11, AST 12 L, ALT 27, Alkaline Phosphatase 81, Total Protein 6.0 L, Albumin 3.5, Globulin 2.5 11/02/22 17:53: Blood Type A POSITIVE, Antibody Screen NEGATIVE 11/02/22 20:52: Troponin I High Sens 6 11/02/22 22:51: Retic Count 5.46 H, Immature Retic Fraction 39.10 H, Retic Hgb Equivalent 36.7 H, PT 14.1, INR 1.1 11/03/22 00:30: Hgb 7.3 L, Hct 22.2 L 11/03/22 00:35: POC Glucose 261 H 11/03/22 05:55: POC Glucose 273 H 11/03/22 06:15: Hgb 7.8 L, Hct 23.6 L, Sodium 139, Potassium 4.2, Chloride 108 H, Carbon Dioxide 27.0, Anion Gap 4 L, BUN 19 H, Creatinine 1.11, Estim Creat Clear Calc 65.95, Est GFR (MDRD) Af Amer 84, Est GFR (MDRD) Non-Af 69, BUN/Creatinine Ratio 17.1, Glucose 267 H, Hemoglobin A1c 8.6 H, Calcium 8.2 L 11/03/22 12:13: POC Glucose 149 H 11/03/22 12:30: Hgb 7.6 L, Hct 23.0 L . Microbiology Past 72 Hours 11/02/22 19:30 Stool Stool Occult Blood (YOLANDA) - Final Laboratory Results 11/02/22 17:52: WBC 5.9, RBC 2.35 L, Hgb 7.8 L, Hct 22.8 L, MCV 97.0 H, MCH 33.2 H, MCHC 34.2, RDW Std Deviation 45.4 H, RDW Coeff of Haley 13.2, Plt Count 148 L, MPV 10.2, Immature Gran % (Auto) 1.500 H, Neut % (Auto) 72.6 H, Lymph % (Auto) 15.7 L, [place] % (Auto) 7.0, Eos % (Auto) 2.7, Baso % (Auto) 0.5, Absolute Neuts (auto) 4.3, Absolute Lymphs (auto) 0.92, Nucleated RBC % 0, Sodium 138, Potassium 3.9, Chloride 106, Carbon Dioxide 27.0, Anion Gap 5, BUN 25 H, Creatinine 1.14, Estim Creat Clear Calc 64.22, Est GFR (MDRD) Af Amer 82, Est GFR (MDRD) Non-Af 67, BUN/Creatinine Ratio 21.9 H, Glucose 275 H, Calcium 8.0 L, Iron 39 L, TIBC 283, Iron Saturation 13.8 L, Ferritin 54, Total Bilirubin 0.30, Direct Bilirubin 0.11, AST 12 L, ALT 27, Alkaline Phosphatase 81, Total Protein 6.0 L, Albumin 3.5, Globulin 2.5 11/02/22 17:53: Blood Type A POSITIVE, Antibody Screen NEGATIVE 11/02/22 20:52: Troponin I High Sens 6 11/02/22 22:51: Retic Count 5.46 H, Immature Retic Fraction 39.10 H, Retic Hgb Equivalent 36.7 H, PT 14.1, INR 1.1 11/03/22 00:30: Hgb 7.3 L, Hct 22.2 L 11/03/22 00:35: POC Glucose 261 H 11/03/22 05:55: POC Glucose 273 H 11/03/22 06:15: Hgb 7.8 L, Hct 23.6 L, Sodium 139, Potassium 4.2, Chloride 108 H, Carbon Dioxide 27.0, Anion Gap 4 L, BUN 19 H, Creatinine 1.11, Estim Creat Clear Calc 65.95, Est GFR (MDRD) Af Amer 84, Est GFR (MDRD) Non-Af 69, BUN/Creatinine Ratio 17.1, Glucose 267 H, Calcium 8.2 L Charges/Coding Visit Charges Inpatient E&M: 42736 Subs Hosp L2
[2022-11-03] MEDS: Pantoprazole Sodium 80 MG in 0.9% Normal Saline (100mL Bag) 80 ML 10 MG CONT INF ×2 (08:19→17:47)
[2022-11-03] MEDS: Lisinopril 20 MG Tablet PO (08:19)
[2022-11-03 11:35] LABS: Hemoglobin A1c 8.6 % (3.8-5.6)
--- NOTE | 2022-11-03 11:50 | CASEMGMT ---
Addendum entered by Steffi Zamorano 11/03/22 13:39: Correction: pt has MCR A/B, not AARP MCR, per Marilou in Registration. Original Note: RN?CM?SOURCER?CM?to room to meet with patient for initial transition planning/care coordination?assessment.?RN?CM?introduced self and role at [facility].? Pt voices understanding and consents to?assessment?at this time.? Pt resting in bed in no distress at this time.? Pt is A/O at this time and answers all questions appropriately.?? Care providers, pharmacy, and demographics verified/updated at this time. PCP: Harlan [facility] Specialists: none Preferred Pharmacy: [facility] Insurance: [place], AARP MCR Prescription Benefit:?[place] only Living Will/HPOA:?Pt states he has done both LW and HCPOA and states his son is probably his HCPOA and thinks his sig other, Autumn, is listed as alternative. LNOK: One son, Gautam. Living Arrangements: Lives w/sig other, Autumn. Independent. Transportation:?Pt states drives self and states no transportation concerns at this time.? Autumn also drives. DME: ?States has the following DME:?functioning glucometer w/supplies, CPAP through the [facility], cane. Also has a walker, but does not use it. ?Pt states no need for further DME at this time.? HHC/SNF: No hx of either. No needs identified. Pt wishes to return home and states has no concerns with going home at time of discharge.??CM?to follow for any discharge planning/needs.? Pt voices no concerns/needs at this time.? Advised pt to ask for?CM?if any questions/concerns/needs arise.? Voices understanding. PLAN:??Home w/significant other. Rigoberto HERNANDEZN?RN?CM
[2022-11-03] MEDS: Sodium Ferric Gluconat/Sucrose 250 MG in 0.9% Normal Saline (250mL Bag) 250 ML 135 MG IV (12:06)
[2022-11-03 12:31] LABS: Bedside Glucose 149 mg/dL (74-106)
[2022-11-03 12:59] LABS: Hemoglobin 7.6 g/dL (13.0-16.5)
[2022-11-03] MEDS: Lactated Ringers 1,000 ML 15 ML IV (14:21)
--- NOTE | 2022-11-03 14:41 | CASEMGMT ---
Received tc from Karie at the [facility], updated on pt status.
--- NOTE | 2022-11-03 15:59 | OP.CCLET_ITS ---
11/03/2022 [facility] Re : Upper GI endoscopy procedure for [facility] This procedure was performed on Thursday, November 03, 2022. My impressions and recommendations are as follows: Impressions : - Esophageal mucosal changes consistent with eosinophilic esophagitis. - Non-bleeding gastric ulcers with no stigmata of bleeding. - Oozing duodenal ulcer with a visible vessel. Injected. Treated with a heater probe. - No specimens collected. Recommendations : - [facility]. - Clear liquid diet. - Continue present medications. - No aspirin, ibuprofen, naproxen, or other non-steroidal anti-inflammatory drugs [Time to Restart]. My findings are described in the full procedure note, which is enclosed. If I can be of further assistance, please feel free to contact me at . Sincerely, Howard Friend, 11/03/2022 3:58:58 PM This report has been signed electronically.
--- NOTE | 2022-11-03 15:59 | OP.EGD_ITS ---
Patient Name: Tristan Peralta Procedure Date: 11/03/2022 3:22 PM Date of : 1950 Age: 71 Procedure: Upper GI endoscopy Indications: Hematemesis Providers: Howard Wahl DO Medicines: Monitored Anesthesia Care Patient Profile: This is a 71 year old male. Refer to note in patient chart for documentation of history and physical. Patient has symptoms of acute epigastric abdominal pain. Complications: No immediate complications. Procedure: Pre-Anesthesia Assessment: - Prior to the procedure, a History and Physical was performed, and patient medications and allergies were reviewed. The patient is competent. The risks and benefits of the procedure and the sedation options and risks were discussed with the patient. All questions were answered and informed consent was obtained. Patient identification and proposed procedure were verified by the physician in the pre-procedure area. Mental Status Examination: alert and oriented. Airway Examination: normal oropharyngeal airway and neck mobility. Respiratory Examination: clear to auscultation. CV Examination: normal. Prophylactic Antibiotics: The patient does not require prophylactic antibiotics. Prior Anticoagulants: The patient has taken no anticoagulant or antiplatelet agents. ASA Grade Assessment: II - A patient with mild systemic disease. After reviewing the risks and benefits, the patient was deemed in satisfactory condition to undergo the procedure. The anesthesia plan was to use monitored anesthesia care (MAC). Immediately prior to administration of medications, the patient was re-assessed for adequacy to receive sedatives. The heart rate, respiratory rate, oxygen saturations, blood pressure, adequacy of pulmonary ventilation, and response to care were monitored throughout the procedure. The physical status of the patient was re-assessed after the procedure. After obtaining informed consent, the endoscope was passed under direct vision. Throughout the procedure, the patient's blood pressure, pulse, and oxygen saturations were monitored continuously. The gastroscope was introduced through the mouth, and advanced to the second part of duodenum. The upper GI endoscopy was accomplished without difficulty. The patient tolerated the procedure well. Scope In: 3:35:57 PM Scope Out: 3:52:17 PM Total Procedure Duration Time 0 hours 16 minutes 20 seconds Findings: Mucosal changes including ringed esophagus and feline appearance were found in the lower third of the esophagus. Many non-bleeding superficial gastric ulcers with no stigmata of bleeding were found in the gastric antrum. The largest lesion was 2 mm in largest dimension. One oozing cratered duodenal ulcer with a visible vessel was found in the first portion of the duodenum. The lesion was 10 mm in largest dimension. Area was successfully injected with 10 mL of a 0.1 mg/mL solution of epinephrine for drug delivery. Estimated blood loss was minimal. Coagulation for hemostasis using heater probe was successful. Estimated blood loss was minimal. Impression: - Esophageal mucosal changes consistent with eosinophilic esophagitis. - Non-bleeding gastric ulcers with no stigmata of bleeding. - Oozing duodenal ulcer with a visible vessel. Injected. Treated with a heater probe. - No specimens collected. Recommendation: - [facility]. - Clear liquid diet. - Continue present medications. - No aspirin, ibuprofen, naproxen, or other non-steroidal anti-inflammatory drugs [Time to Restart]. Procedure Code(s): --- Professional --- 21218, Esophagogastroduodenoscopy, flexible, transoral; with control of bleeding, any method 12484, 59,51, Esophagogastroduodenoscopy, flexible, transoral; with directed submucosal injection(s), any substance CPT copyright 2021 [employer]. All rights reserved. The codes documented in this report are preliminary and upon auto glass technician review may be revised to meet current compliance requirements. Howard Wahl DO 11/03/2022 3:58:58 PM This report has been signed electronically. Number of Addenda: 0 Note Initiated On: 11/03/2022 3:22 PM
[2022-11-03 17:12] LABS: Bedside Glucose 148 mg/dL (74-106)
[2022-11-03] MEDS: Sucralfate 1 GM Tablet PO (17:47)
[2022-11-03] MEDS: oxyCODONE 5 MG Tablet PO ×2 (17:47→22:13)
[2022-11-03 17:53] LABS: Hematocrit 24.1 % (40-54)
[2022-11-03] MEDS: Senna/Docusate Sodium 1 Tablet 2 TABLET PO (21:59)
[2022-11-03 22:40] LABS: Bedside Glucose 198 mg/dL (74-106)
[2022-11-04 04:00] VITALS: BP 126/60; PULSE 75; RESP 16; TEMP 36.9; O2SAT 97
[2022-11-04] MEDS: Pantoprazole Sodium 80 MG in 0.9% Normal Saline (100mL Bag) 80 ML 10 MG CONT INF ×2 (04:02→14:23)
[2022-11-04] MEDS: Gabapentin 300 MG Capsule PO ×3 (05:12→21:40)
[2022-11-04] MEDS: 0.9% Normal Saline (1000mL) 1,000 ML 75 ML IV ×2 (05:12→17:36)
[2022-11-04 05:29] LABS: Bedside Glucose 118 mg/dL (74-106)
[2022-11-04 06:26] LABS: Absolute Lymphocyte Count 0.66 X10^3/uL (0.83-4.51); Absolute Neutrophil Count 4.3 X10^3/uL (2.0-7.7); Basophil# 0.03 X10^3/uL; Basophil% 0.5 % (0-1); Eosinophil# 0.22 X10^3/uL; Eosinophils% 3.8 % (0-5); Hematocrit 21.5 % (40-54); Lymphocyte # 0.66 X10^3/ul (0.83-4.51); Lymphocyte % 11.3 % (19-41); Mean Corp Hgb Conc 32.6 g/dL (32-36); Mean Corpuscular Hgb 32.4 pg (27.0-32.0); Mean Corpuscular Volume 99.5 fL (80-94); Mean Platelet Vol. 9.8 fl (6.2-12.0); Monocyte# 0.47 X10^3/uL; Monocyte% 8.1 % (0-10); NRBC Flagged by Analyzer 0.5 % (0-5); Neutrophil # 4.34 X10^3/uL (2.7-7.7); Neutrophil % 74.6 % (47-70); Platelet Count 154 K/mm3 (150-450); RBC Distribution Width CV 14.2 % (11.6-14.6); RBC Distribution Width SD 47.8 fl (35.1-43.9); Red Blood Count 2.16 M/mm3 (4.6-6.2); White Blood Count 5.8 K/mm3 (4.4-11.0)
[2022-11-04 06:55] LABS: Anion Gap 3 (5-15); BUN 12 mg/dL (7-18); BUN/Creat Ratio 13.2 RATIO (10-20); Calcium,Total 7.9 mg/dL (8.5-10.1); Chloride 111 mmol/L (98-107); Creatinine, Serum 0.91 mg/dL (0.70-1.30); EST Glomerular Filtration Rate 88 mL/min (>60); Est Glom Filt Rate - Afr Amer 106 mL/min (>60); Estimated Creatinine Clearance 80.45 ml/min; Glucose 114 mg/dL (74-106); Potassium 3.6 mmol/L (3.5-5.1); Sodium Level 141 mmol/L (136-145)
[2022-11-04] MEDS: Senna/Docusate Sodium 1 Tablet 2 TABLET PO ×2 (09:33→21:28)
[2022-11-04] MEDS: Polyethylene Glycol 3350 17 GM PACKET PO (09:34)
[2022-11-04] MEDS: Ferrous Sulfate 325 MG Tablet PO (09:34)
[2022-11-04] MEDS: Sucralfate 1 GM Tablet PO ×3 (09:34→17:36)
[2022-11-04] MEDS: Lisinopril 20 MG Tablet PO (09:34)
[2022-11-04 09:40] VITALS: BP 123/58; PULSE 75; RESP 18; TEMP 36.7; O2SAT 95
[2022-11-04] MEDS: oxyCODONE 5 MG Tablet PO (09:43)
[2022-11-04 10:08] VITALS: O2SAT 95
[2022-11-04] MEDS: Insulin Lispro 100 UNIT/ML INSULN.PEN SC ×3 (12:09→21:36)
[2022-11-04 12:30] LABS: Bedside Glucose 207 mg/dL (74-106)
[2022-11-04 12:38] LABS: Hematocrit 21.8 % (40-54)
[2022-11-04 14:20] VITALS: BP 126/63; PULSE 66; RESP 18; TEMP 36.6; O2SAT 97
--- NOTE | 2022-11-04 15:12 | PCM.PN.HOSP ---
Subjective Subjective Doing well, no issues overnight Objective Data Objective Data Vital Signs: Vital Signs Temp Pulse Resp BP Pulse Ox O2 Del Method 98.1 F 75 18 123/58 H 95 Room Air 11/04/22 09:40 11/04/22 09:40 11/04/22 09:40 11/04/22 09:40 11/04/22 10:08 11/04/22 10:08 Oxygen Delivery Method Room Air Weight: 217 lb Body Mass Index (BMI) 30.2 Intake & Output: Intake and Output for Last 24 Hours 11/03/22 11/04/22 11/05/22 03:59 03:59 03:59 Intake Total 35.38 / 35.38 1688.37 / 1688.37 1030 / 1030 Output Total 1000 / 1000 Balance 35.38 / 35.38 1688.37 / 1688.37 Lab / Micro Data 11/04/22 12:10 11/04/22 06:05 Labs: Laboratory Results - last 24 hr 11/03/22 16:52: POC Glucose 148 H 11/03/22 17:47: Hgb 8.0 L, Hct 24.1 L 11/03/22 21:58: POC Glucose 198 H 11/04/22 05:10: POC Glucose 118 H 11/04/22 06:05: WBC 5.8, RBC 2.16 L, Hgb 7.0 L, Hct 21.5 L, MCV 99.5 H, MCH 32.4 H, MCHC 32.6, RDW Std Deviation 47.8 H, RDW Coeff of Haley 14.2, Plt Count 154, MPV 9.8, Immature Gran % (Auto) 1.700 H, Neut % (Auto) 74.6 H, Lymph % (Auto) 11.3 L, [place] % (Auto) 8.1, Eos % (Auto) 3.8, Baso % (Auto) 0.5, Absolute Neuts (auto) 4.3, Absolute Lymphs (auto) 0.66 L, Nucleated RBC % 0.5, Sodium 141, Potassium 3.6, Chloride 111 H, Carbon Dioxide 27.0, Anion Gap 3 L, BUN 12, Creatinine 0.91, Estim Creat Clear Calc 80.45, Est GFR (MDRD) Af Amer 106, Est GFR (MDRD) Non-Af 88, BUN/Creatinine Ratio 13.2, Glucose 114 H, Calcium 7.9 L 11/04/22 12:07: POC Glucose 207 H 11/04/22 12:10: Hgb 7.0 L, Hct 21.8 L Micro: Microbiology 11/02/22 19:30 Stool Stool Occult Blood (YOLANDA) - Final Physical Exam Narrative General: Alert, Oriented x3, Cooperative, No apparent distress HEENT: Atraumatic, PERRLA, EOMI, Normocephalic Oral: Moist Mucosa Neck: Supple, No JVD Lungs: Clear to auscultation, Normal air movement, No rhonchi, No wheeze, No rales Cardiovascular: Regular rate, Regular Rhythm, Normal S1, Normal S2, No murmurs Abdomen: Soft, Non Tender, Non-Distended, No Hepato-splenomegaly Extremities: No edema, Capillary Refill Less than 3 Seconds Skin: No rashes, No breakdown Musculoskeletal: No Tenderness to Palpation of Joints or Extremities Neurological: Cranial nerves II-XII grossly intact, Motor Exam 5/5 strength throughout, Sensory exam intact to light touch and pain Psych/Mental Status: Normal Affect, Appropriate Assessment & Plan Assessment/Plan (1) Acute GI bleeding: (2) Light-headed: (3) Diabetes mellitus: QUALIFIERS: Diabetes mellitus type: type 2 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 Acute blood loss anemia secondary to GI bleed with acute on chronic mixed iron deficiency and anemia of chronic disease: Patient is admitted to [facility] floor, monitored bed. His hemoglobin dropped to 7.6 with baseline 11.4 in January 2022 and 12.6 in November 2021. Patient was treated with IV fluid. H&H reviewed. Hold aspirin and NSAID. Preferably, discontinue NSAID with alternative pain medication. Patient on Protonix drip and octreotide drip. GI is consulted. Stool for occult blood negative. Anemia work-up shows low iron, normal TIBC iron saturation 13%. Ferritin 54. Reticulocyte panel shows elevated immature reticulocyte fraction and reticulocyte count. Iron infusion ordered. After EGD, esophageal varices ruled out therefore octreotide drip discontinued continue Protonix drip. The patient had EGD. He does have duodenal ulcerations and signs consistent with eosinophilic esophagitis 11/04/2022: Hemoglobin this morning was 7 down from 8 yesterday, repeat was also 7 will hold him here for 1 more night and recheck in the morning 2. 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 Accu-Cheks before meals and at bedtime incorrigible sliding scale. Hold prandial insulin Cut Basal insulin to 2. Hold prandial insulin. Accu-Chek with correction scale insulin ordered. 3. CKD stage II:BUNs/creatinine 19/1.1. Electrolytes in normal range except chloride 108. Monitor BMP INR is 322 went for 4. Hypertension Blood pressure is not within goal Home blood pressure medication continued. Trend blood pressure and adjust blood pressure medications. DVT prophylaxis: SCDs. Charges/Coding Visit Charges Inpatient E&M: 94490 Subs Hosp L2
[2022-11-04 17:56] LABS: Bedside Glucose 165 mg/dL (74-106)
[2022-11-04 21:25] VITALS: BP 121/74; PULSE 70; RESP 20; TEMP 36.7; O2SAT 96
[2022-11-04] MEDS: Sertraline 100 MG Tablet PO (21:27)
[2022-11-04] MEDS: Tamsulosin HCl 0.4 MG Capsule PO (21:28)
[2022-11-04] MEDS: busPIRone 5 MG Tablet PO (21:28)
[2022-11-04] MEDS: traZODone 50 MG Tablet 25 MG PO (21:28)
[2022-11-04] MEDS: Loratadine 10 MG Tablet PO (21:28)
[2022-11-04] MEDS: Insulin Glargine-YFGN 100 UNIT/ML Pen 22 UNIT SC (21:35)
[2022-11-04] MEDS: 0.9% Saline Lock 10 ML Syringe IV (22:01)
--- NOTE | 2022-11-04 22:18 | PN.GI_ITS ---
Subjective Subjective Patient underwent emergent endoscopy yesterday for an upper G.I. bleed. There were no issues overnight and no signs of bleeding overnight. Objective Data Objective Data Vital Signs: Vital Signs Temp Pulse Resp BP Pulse Ox O2 Del Method O2 Flow Rate 98.0 F 70 20 H 121/74 H 96 Nasal Cannula 2 11/04/22 21:25 11/04/22 21:25 11/04/22 21:25 11/04/22 21:25 11/04/22 21:25 11/04/22 21:51 11/04/22 21:51 Oxygen Flow Rate (L/min) 2 Oxygen Delivery Method Nasal Cannula Weight: 217 lb Body Mass Index (BMI) 30.2 Intake & Output: Intake and Output for Last 24 Hours 11/02/22 11/03/22 11/04/22 23:59 23:59 23:59 Intake Total 35.38 / 35.38 1588.37 / 1588.37 2060 / 2060 Output Total 1000 / 1000 Balance 35.38 / 35.38 1588.37 / 1588.37 1060 / 1060 Lab / Micro Data 11/04/22 12:10 11/04/22 06:05 Labs: Laboratory Results - last 24 hr 11/03/22 21:58: POC Glucose 198 H 11/04/22 05:10: POC Glucose 118 H 11/04/22 06:05: WBC 5.8, RBC 2.16 L, Hgb 7.0 L, Hct 21.5 L, MCV 99.5 H, MCH 32.4 H, MCHC 32.6, RDW Std Deviation 47.8 H, RDW Coeff of Haley 14.2, Plt Count 154, MPV 9.8, Immature Gran % (Auto) 1.700 H, Neut % (Auto) 74.6 H, Lymph % (Auto) 11.3 L, Sac % (Auto) 8.1, Eos % (Auto) 3.8, Baso % (Auto) 0.5, Absolute Neuts (auto) 4.3, Absolute Lymphs (auto) 0.66 L, Nucleated RBC % 0.5, Sodium 141, Pot assium 3.6, Chloride 111 H, Carbon Dioxide 27.0, Anion Gap 3 L, BUN 12, Creatinine 0.91, Estim Creat Clear Calc 80.45, Est GFR (MDRD) Af Amer 106, Est GFR (MDRD) Non-Af 88, BUN/Creatinine Ratio 13.2, Glucose 114 H, Calcium 7.9 L 11/04/22 12:07: POC Glucose 207 H 11/04/22 12:10: Hgb 7.0 L, Hct 21.8 L 11/04/22 17:35: POC Glucose 165 H Micro: Microbiology 11/02/22 19:30 Stool Stool Occult Blood (YOLANDA) - Final Physical Exam Narrative General: Alert, Oriented x3, Cooperative, No apparent distress HEENT: Atraumatic, PERRLA, EOMI, Normocephalic Oral: Moist Mucosa Neck: Supple, No JVD Lungs: Clear to auscultation, Normal air movement, No rhonchi, No wheeze, No rales Cardiovascular: Regular rate, Regular Rhythm, Normal S1, Normal S2, No murmurs Abdomen: Soft, Non Tender, Non-Distended, No Hepato-splenomegaly Extremities: No edema, Capillary Refill Less than 3 Seconds Skin: No rashes, No breakdown Musculoskeletal: No Tenderness to Palpation of Joints or Extremities Neurological: Cranial nerves II-XII grossly intact, Motor Exam 5/5 strength throughout, Sensory exam intact to light touch and pain Psych/Mental Status: Normal Affect, Appropriate Assessment & Plan Assessment/Plan (1) Acute GI bleeding: (2) Light-headed: (3) Diabetes mellitus: QUALIFIERS: Diabetes mellitus type: type 2 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 Patient vomited dark red in color/hematemesis on Wednesday that is started with abdominal discomfort. Patient also had dark red large bowel movement. Abdominal pain has resolved. Acute blood loss anemia secondary to GI bleed with acute on chronic mixed iron deficiency and anemia of chronic disease: [facility] bed. His hemoglobin dropped to 7.6 with baseline 11.4 in January 2022 and 12.6 in November 2021 . Patient was treated with IV fluid. H&H reviewed. Hold aspirin and NSAID. Preferably, discontinue NSAID with alternative pain medication. Patient on Protonix drip and octreotide drip. GI is consulted. Stool for occult blood negative. Anemia work-up shows low iron, normal TIBC iron saturation 13%. Ferritin 54. Reticulocyte panel shows elevated immature reticulocyte fraction and reticulocyte count. Iron infusion ordered. After EGD, esophageal varices ruled out therefore octreotide drip discontinued continue Protonix drip. The patient had EGD. Impressions : - Esophageal mucosal changes consistent with eosinophilic esophagitis. - Non-bleeding gastric ulcers with no stigmata of bleeding. - Oozing duodenal ulcer with a visible vessel. Injected. Treated with a heater probe. - No specimens collected. Recommendations : - [facility]. - Clear liquid diet. - Continue present medications. - No aspirin, ibuprofen, naproxen, or other non-steroidal anti-inflammatory drugs Patient is doing well. He did have a slight decrease in his hemoglobin. If his hemoglobin is stable, he can be discharged home on or amarilys and PPI therapy with Carafate therapy. Charges/Coding Visit Charges Inpatient E&M: 32215 [facility] Hosp L3
[2022-11-05] VITALS (9 sets, daily range): BP systolic 118–140; BP diastolic 40–106; PULSE 64–72; RESP 16–20; TEMP 36.5–37.1; O2SAT 97–100
[2022-11-05 00:32] LABS: Bedside Glucose 192 mg/dL (74-106)
[2022-11-05] MEDS: oxyCODONE 5 MG Tablet PO (00:55)
[2022-11-05] MEDS: Pantoprazole Sodium 80 MG in 0.9% Normal Saline (100mL Bag) 80 ML 10 MG CONT INF (01:46)
[2022-11-05] MEDS: Sucralfate 1 GM Tablet PO ×2 (06:53→11:37)
[2022-11-05] MEDS: Gabapentin 300 MG Capsule PO (06:53)
[2022-11-05] MEDS: 0.9% Normal Saline (1000mL) 1,000 ML 75 ML IV (06:57)
[2022-11-05 07:06] LABS: Absolute Lymphocyte Count 0.56 X10^3/uL (0.83-4.51); Absolute Neutrophil Count 4.1 X10^3/uL (2.0-7.7); Basophil# 0.02 X10^3/uL; Basophil% 0.4 % (0-1); Eosinophils% 3.8 % (0-5); Hematocrit 21.7 % (40-54); Lymphocyte # 0.56 X10^3/ul (0.83-4.51); Lymphocyte % 10.5 % (19-41); Mean Corp Hgb Conc 32.3 g/dL (32-36); Mean Corpuscular Hgb 32.3 pg (27.0-32.0); Mean Platelet Vol. 9.9 fl (6.2-12.0); Monocyte# 0.42 X10^3/uL; Monocyte% 7.9 % (0-10); NRBC Flagged by Analyzer 0 % (0-5); Neutrophil # 4.06 X10^3/uL (2.7-7.7); Neutrophil % 76.1 % (47-70); POSITIVE DIFFERENTIAL YES; Platelet Count 163 K/mm3 (150-450); RBC Distribution Width CV 14.3 % (11.6-14.6); RBC Distribution Width SD 48.9 fl (35.1-43.9); Red Blood Count 2.17 M/mm3 (4.6-6.2); White Blood Count 5.3 K/mm3 (4.4-11.0)
[2022-11-05] MEDS: Insulin Lispro 100 UNIT/ML INSULN.PEN SC ×2 (07:08→11:36)
[2022-11-05 07:10] LABS: Differential Indicated SCAN CRITERIA MET
[2022-11-05 07:22] LABS: Differential Comment SCANNED
[2022-11-05 07:45] LABS: Bedside Glucose 154 mg/dL (74-106)
[2022-11-05] MEDS: Ferrous Sulfate 325 MG Tablet PO (07:57)
[2022-11-05] MEDS: Polyethylene Glycol 3350 17 GM PACKET PO (07:58)
[2022-11-05] MEDS: Lisinopril 20 MG Tablet PO (07:58)
[2022-11-05] MEDS: Senna/Docusate Sodium 1 Tablet 2 TABLET PO (07:58)
--- NOTE | 2022-11-05 11:25 | PCM.DC ---
Discharge Instructions Diet Discharge Diet: Low fat / Low cholesterol Activity Discharge Activity: Return to Normal Activity Dressing / Incision Call your doctor if you observe: Fever of 101 or Higher, Shortness of breath, Dizziness, Fainting spells, Swelling in the ankles, Chest pain and Increased palpitations (irregular heartbeat) Follow Up Care Test Results: Test results from this visit will be discussed in further detail at your follow-up appointment, if applicable. Discharge Plan Admission Admit Date/Time: 11/02/22 21:50 Attending Provider: Rodo Darden Primary Care Provider: [facility],[place] Consulting Providers: Howard Wahl; Brayden Matamoros; Vu White Instructions Additional Instructions / Restrictions: Hold your aspirin and naproxen until you follow-up with your primary care doctor this is likely the cause of your ulcerations so unless is absolutely necessary I would not restart these without a physician supervision. Also follow-up with your PCP to obtain outpatient lab work to monitor your hemoglobin Discharge Orders/Prescriptions Prescriptions: New sucralfate 1 gram Tablet 1 g PO TID@0700,1100,1600 30 Days Qty: 90 0RF pantoprazole [Protonix] 40 mg tablet,delayed release (DR/EC) 40 mg PO BID Qty: 60 0RF Continued Insulin Glargine,Hum.rec.anlog 45 unit SQ QHS Iron 65 mg PO DAILY Novolog Flexpen 12 unit SQ TID PRN (Reason: diabetes) multivitamin Tablet 1 tab PO DAILY buspirone 5 mg Tablet 5 mg PO QHS trazodone 50 mg Tablet 25 mg PO QHS cetirizine 10 mg Tablet 10 mg PO QHS sertraline 100 mg Tablet 100 mg PO DAILY tamsulosin 0.4 mg Capsule 0.4 mg PO QHS gabapentin 300 mg capsule 300 mg PO BID lisinopril 20 mg tablet 20 mg PO DAILY Held aspirin 81 mg Capsule 81 mg PO DAILY Hold Instructions: Resume on 11/14/22. naproxen [Naprosyn] 500 mg tablet 500 mg PO BID Hold Instructions: Resume on 11/14/22. Referrals / Follow Up: Howard Wahl DO [Med Staff - Active Staff] - Within 1 Month [facility],[place] [Primary Care Provider] - Within 1 Week Disposition Disposition (needs filled in before D/C Order can be placed): Home, Self Care
--- NOTE | 2022-11-05 11:38 | NURSING ---
pt had bm and is refusing enema
[2022-11-05 11:59] LABS: Bedside Glucose 175 mg/dL (74-106)
--- NOTE | 2022-11-05 12:07 | CASEMGMT ---
RN CM into pt room, pt lying in bed. Pt denies any homegoing needs and is ready for dc.
--- NOTE | 2022-11-05 12:17 | PHA.DC_ITS ---
Pharmacy [facility] has performed discharge medication reconciliation and counseling for this patient. The patient was counseled on the following discharge medications and changes in medications for homegoing were reviewed. 1. PROTONIX 2. CARAFATE The Reason for Use, instructions for use, and potential side effects were reviewed for all new medications. The patient's questions regarding all of their medications were answered. The patient was able to verbally demonstrate an understanding of their discharge medications. The patient's discharge medication list was reviewed for discrepancies and discrepancies were resolved. Medications at Discharge Home Medications Insulin Glargine,Hum.rec.anlog 45 unit SQ QHS diabetes 09/06/18 Iron 65 mg PO DAILY supplement 09/06/18 Novolog Flexpen 12 unit SQ TID PRN diabetes 09/06/18 aspirin 81 mg capsule 81 mg PO DAILY heart health 11/22/21 buspirone 5 mg tablet 5 mg PO QHS depression/anxiety 11/22/21 cetirizine 10 mg tablet 10 mg PO QHS allergies 11/22/21 multivitamin 1 tab PO DAILY supplement 11/22/21 sertraline 100 mg tablet 100 mg PO DAILY depression/anxiety 11/22/21 tamsulosin 0.4 mg capsule 0.4 mg PO QHS urine flow 11/22/21 trazodone 50 mg tablet 25 mg PO QHS sleep 11/22/21 gabapentin 300 mg capsule 300 mg PO BID 11/02/22 lisinopril 20 mg tablet 20 mg PO DAILY 11/02/22 naproxen 500 mg tablet (Naprosyn) 500 mg PO BID 11/02/22 pantoprazole 40 mg tablet,delayed release (Protonix) 40 mg PO BID #60 tabs 11/05/22 sucralfate 1 gram tablet 1 g PO TID@0700,1100,1600 30 days #90 tabs 11/05/22
--- NOTE | 2022-11-05 13:03 | DS.PCM_ITS ---
Providers Date of Admission: 11/02/22 Primary Care Physician: [facility] Consultations 11/03/22 00:12 Consult: Gastroenterology Routine Consulting Provider: Howard Wahl Reason for Consult: GI bleed EMERGENT Consult: No MD Notified: Yes Date Notified: 11/02/22 Time Notified: 21:58 Method of Notification: ED Physician Initiated Reason For Visit: ABLA Diagnosis Discharge Diagnosis (1) Acute GI bleeding: Status: Acute Code(s): K92.2 - Gastrointestinal hemorrhage, unspecified (2) Light-headed: Status: Acute Code(s): R42 - Dizziness and giddiness (3) Diabetes mellitus: Status: Acute Code(s): E11.9 - Type 2 diabetes mellitus without complications Qualifiers: Diabetes mellitus type: type 2 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: with residential use Diabetes mellitus complication status: with neurologic complications Diabetes mellitus complication detail: with polyneuropathy Qualified Code(s): E11.42 - 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; 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 Medications at Discharge Home Medications Insulin Glargine,Hum.rec.anlog 45 unit SQ QHS diabetes 09/06/18 Iron 65 mg PO DAILY supplement 09/06/18 Novolog Flexpen 12 unit SQ TID PRN diabetes 09/06/18 aspirin 81 mg capsule 81 mg PO DAILY heart health 11/22/21 buspirone 5 mg tablet 5 mg PO QHS depression/anxiety 11/22/21 cetirizine 10 mg tablet 10 mg PO QHS allergies 11/22/21 multivitamin 1 tab PO DAILY supplement 11/22/21 sertraline 100 mg tablet 100 mg PO DAILY depression/anxiety 11/22/21 tamsulosin 0.4 mg capsule 0.4 mg PO QHS urine flow 11/22/21 trazodone 50 mg tablet 25 mg PO QHS sleep 11/22/21 gabapentin 300 mg capsule 300 mg PO BID 11/02/22 lisinopril 20 mg tablet 20 mg PO DAILY 11/02/22 naproxen 500 mg tablet (Naprosyn) 500 mg PO BID 11/02/22 pantoprazole 40 mg tablet,delayed release (Protonix) 40 mg PO BID #60 tabs 11/05/22 sucralfate 1 gram tablet 1 g PO TID@0700,1100,1600 30 days #90 tabs 11/05/22 Hospital Course Operations None Procedures EGD Summary of Care Provided Minutes Spent on Discharge: 39 Hospital Course: Per HPI: Hospital Course: 1. Acute blood loss anemia secondary to GI bleed with acute on chronic mixed iron deficiency and anemia of chronic disease: [facility] bed. His hemoglobin dropped to 7.6 with baseline 11.4 in January 2022 and 12.6 in November 2021. Patient was treated with IV fluid. H&H reviewed. Hold aspirin and NSAID. Preferably, discontinue NSAID with alternative pain medication. Patient on Protonix drip and octreotide drip. GI is consulted. Stool for occult blood negative. Anemia work-up shows low iron, normal TIBC iron saturation 13%. Ferritin 54. Reticulocyte panel shows elevate d immature reticulocyte fraction and reticulocyte count. Iron infusion ordered. After EGD, esophageal varices ruled out therefore octreotide drip discontinued continue Protonix drip. The patient had EGD. He does have duodenal ulcerations and signs consistent with eosinophilic esophagitis 11/04/2022: Hemoglobin this morning was 7 down from 8 yesterday, repeat was also 7 will hold him here for 1 more night and recheck in the morning 11/05/2022: Hemoglobin again this morning is exactly 7.0 it does not appear that he is continuing to bleed given how low his hemoglobin is remaining I will go ahead and transfuse him 1 unit today. I discussed with him the plan for discharge later today and he expressed understanding of the risk benefits of going home and would like to go home. Plan will be for care for Carafate and Protonix 40 mg twice daily for a month. He needs to follow-up with gastroent erology within that month as well as his PCP to monitor his hemoglobin. I discussed with him the need to hold his naproxen as well as his aspirin secondary to his GI bleeding with visible vessel with duodenal ulcer. These are not to be restarted unless directed by his PCP or gastroenterology. 2. Type 2 diabetes with neuropathy and nephropathy, CKD 2, hypertension, BPH are chronic medical conditions which complicate his care. His home medications were continued where appropriate Physical Exam Narrative General: Alert, Oriented x3, Cooperative, No apparent distress HEENT: Atraumatic, PERRLA, EOMI, Normocephalic Oral: Moist Mucosa Neck: Supple, No JVD Lungs: Clear to auscultation, Normal air movement, No rhonchi, No wheeze, No rales Cardiovascular: Regular rate, Regular Rhythm, Normal S1, Normal S2, No murmurs Abdomen: Soft, Non Tender, Non-Distended, No Hepato-splenomegaly Extremities: No edema, Capillary Refill Less than 3 Seconds Skin: No rashes, No breakdown Musculoskeletal: No Tenderness to Palpation of Joints or Extremities Neurological: Cranial nerves II-XII grossly intact, Motor Exam 5/5 strength t hroughout, Sensory exam intact to light touch and pain Psych/Mental Status: Normal Affect, Appropriate Weight / BMI Weight Weight: 217 lb Body Mass Index (BMI) 30.2 ABG / Lab / Microbiology Data 11/05/22 06:30 11/04/22 06:05 Laboratory: Laboratory Results - last 24 hr 11/02/22 17:53: Crossmatch See Detail 11/04/22 17:35: POC Glucose 165 H 11/04/22 21:23: POC Glucose 192 H 11/05/22 06:30: WBC 5.3, RBC 2.17 L, Hgb 7.0 L, Hct 21.7 L, MCV 100.0 H, MCH 32.3 H, MCHC 32.3, RDW Std Deviation 48.9 H, RDW Coeff of Haley 14.3, Plt Count 163, MPV 9.9, Immature Gran % (Auto) 1.300 H, Neut % (Auto) 76.1 H, Lymph % (Auto) 10.5 L, Reynolds % (Auto) 7.9, Eos % (Auto) 3.8, Baso % (Auto) 0.4, Absolute Neuts (auto) 4.1, Absolute Lymphs (auto) 0.56 L, Nucleated RBC % 0, Differential Comment SCANNED 11/05/22 07:06: POC Glucose 154 H 11/05/22 11:35: POC Glucose 175 H Microbiology: Microbiology 11/02/22 19:30 Stool Stool Occult Blood (YOLANDA) - Final D/C Instructions Discharge Diet: Low fat / Low cholesterol Call your doctor if you observe: Fever of 101 or Higher, Shortness of breath, Dizziness, Fainting spells, Swelling in the ankles, Chest pain and Increased palpitations (irregular heartbeat) Meaningful Use Info Meaningful Use Diagnoses (Choose all that apply): None applicable Discharge Plan Admission Admit Date/Time: 11/02/22 21:50 Attending Provider: Rodo Darden Primary Care Provider: [facility] Consulting Providers: Howard Wahl; Brayden Matamoros; Vu White Instructions Additional Instructions / Restrictions: Hold your aspirin and naproxen until you follow-up with your primary care doctor this is likely the cause of your ulcerations so unless is absolutely necessary I would not restart these without a physician supervision. Also follow-up with your PCP to obtain outpatient lab work to monitor your hemoglobin Discharge Orders/Prescriptions Prescriptions: New sucralfate 1 gram Tablet 1 g PO TID@0700,1100,1600 30 Days Qty: 90 0RF pantoprazole [Protonix] 40 mg tablet,delayed release (DR/EC) 40 mg PO BID Qty: 60 0RF Continued Insulin Glargine,Hum.rec.anlog 45 unit SQ QHS Iron 65 mg PO DAILY Novolog Flexpen 12 unit SQ TID PRN (Reason: diabetes) multivitamin Tablet 1 tab PO DAILY buspirone 5 mg Tablet 5 mg PO QHS trazodone 50 mg Tablet 25 mg PO QHS cetirizine 10 mg Tablet 10 mg PO QHS sertraline 100 mg Tablet 100 mg PO DAILY tamsulosin 0.4 mg Capsule 0.4 mg PO QHS gabapentin 300 mg capsule 300 mg PO BID lisinopril 20 mg tablet 20 mg PO DAILY Held aspirin 81 mg Capsule 81 mg PO DAILY Hold Instructions: Resume on 11/14/22. naproxen [Naprosyn] 500 mg tablet 500 mg PO BID Hold Instructions: Resume on 11/14/22. Referrals / Follow Up: Howard Wahl DO [Med Staff - Active Staff] - Within 1 Month (I have called Doctor Maryuri's office. I have left a message for the office to call the patient and set up a appointment. ) [facility] [Primary Care Provider] - Within 1 Week (The Patient needs to make this appointment. ) Disposition Disposition (needs filled in before D/C Order can be placed): Home, Self Care Charges/Coding Visit Charges Inpatient E&M: 29321 Disch Hosp >30min
== END 2022-11-05 13:05 | disposition home or self-care (01) | DRG 378 ==
LOC: ED 21:57 → MS3 11-03 07:31
PROVIDERS: Anesthesiology; Internal Medicine; Internal Medicine Gastroenterology; Admitting Provider Hospitalist; Emergency Provider Emergency Medicine; Visit Provider Family Medicine
PROC: 0DJ08ZZ Inspection of Upper Intestinal Tract, Via Natural or Artificial Opening Endoscopic (ICD-10-PCS; CPT 43235; principal; 2022-11-03 14:55)
DX: K26.4 Chronic or unspecified duodenal ulcer with hemorrhage (principal); D62 Acute posthemorrhagic anemia; D63.8 Anemia in other chronic diseases classified elsewhere; E11.22 Type 2 diabetes mellitus with diabetic chronic kidney disease; D69.6 Thrombocytopenia, unspecified; E11.65 Type 2 diabetes mellitus with hyperglycemia; Z79.4 Long term (current) use of insulin; E11.42 Type 2 diabetes mellitus with diabetic polyneuropathy; I12.9 Hypertensive chronic kidney disease with stage 1 through stage 4 chronic kidney disease, or unspecified chronic kidney disease; F32.A Depression, unspecified; E78.5 Hyperlipidemia, unspecified; N18.2 Chronic kidney disease, stage 2 (mild); K20.0 Eosinophilic esophagitis; F17.290 Nicotine dependence, other tobacco product, uncomplicated; G47.33 Obstructive sleep apnea (adult) (pediatric); M54.50 Low back pain, unspecified; K25.9 Gastric ulcer, unspecified as acute or chronic, without hemorrhage or perforation; N40.0 Benign prostatic hyperplasia without lower urinary tract symptoms; Z79.82 Long term (current) use of aspirin; Z79.899 Other long term (current) drug therapy; Z79.1 Long term (current) use of non-steroidal anti-inflammatories (NSAID)
CPT/HCPCS: 36415; 71045; 74174; 80048; 80076; 82274; 82728; 82962; 83036; 83540; 83550; 84484; 85014; 85018; 85025; 85045; 85610; 86850; 86900; 86901; 86920; 93005; 94760; 99284; 99406; J7030; J7050; J7120; P9016; Q9967; A4216; J2405; J2916; J3490

== ENCOUNTER → 2022-11-23 | Outpatient (CLI) | payer OTHER, SELFPAY ==
--- NOTE | 2022-11-23 10:31 | US_ITS ---
EXAM: US RIGHT LOWER EXTREMITY NON-VASCULAR, COMPLETE CLINICAL INDICATION: DISORDERS OF THE SKIN AND SUBCUTANEOUS TISSUE TECHNIQUE: Real-time ultrasound scan of the right lower extremity with image documentation. COMPARISON: No relevant prior studies available. FINDINGS: SOFT TISSUES: A localized area of soft tissue prominence noted measuring 3.2 cm in maximum diameter proximal to the wrist may represent region of soft tissue contusion. No fluid collection identified. No foreign body. US/Ext Non Vasc Limited/Soft Tiss IMPRESSION: Localized soft tissue prominence which may represent a region of contusion. Follow-up recommended as clinically indicated. Electronically Signed: Lexa Garza MD at 12:29 EDT ,
== END | disposition home or self-care (01) ==
DX: L98.9 Disorder of the skin and subcutaneous tissue, unspecified (principal)
CPT/HCPCS: 76882

== ENCOUNTER 2023-07-12 12:36 | Emergency (ER) | payer OTHER, SELFPAY ==
[2023-07-12 12:37] VITALS: BP 139/56; PULSE 80; RESP 18; TEMP 36; O2SAT 100; BMI 28.1
--- NOTE | 2023-07-12 13:15 | EKG12_ITS ---
Test Reason : CHEST PAIN Blood Pressure : / mmHG Vent. Rate : 066 BPM Atrial Rate : 066 BPM P-R Int : 166 ms QRS Dur : 094 ms QT Int : 394 ms P-R-T Axes : 061 036 054 degrees QTc Int : 413 ms Normal sinus rhythm Normal ECG Confirmed by DESMOND GAN, SHANTE ([id number]), associate editor ERIC BACA ([id number]) on 07/13/2023 2:07:42 PM Referred By: Confirmed By:SHANTE LOGAN MD
--- NOTE | 2023-07-12 13:35 | RAD_ITS ---
STUDY: X-RAY CHEST REASON FOR EXAM: Male, 72 years old. Shortness of breath TECHNIQUE: PA and lateral views of the chest. COMPARISON: Comparison is made with prior study November 03, 2019 FINDINGS: EKG electrodes are seen. The lungs are clear and expanded. There is no demonstrated pleural abnormality. Normal size heart. Normal mediastinum and alejandra. Normal visualized pulmonary arteries. There is atherosclerotic calcification of the aortic arch with tortuosity. There are diffuse degenerative changes of the visualized thoracic spine. Normal visualized ribs, clavicles, and shoulders. There is no demonstrated abnormality of the visualized soft tissue structures of the upper abdomen. RAD/Chest PA and Lateral IMPRESSION: No acute abnormality is seen. Electronically Signed: Kulwant Lentz MD at 14:01 EDT ,
--- NOTE | 2023-07-12 13:38 | ED.RN ---
when this rn goes in to do pts assessment, this rn asks states samara, my name is domi and i will be your nurse today. what brings you in to be seen today? pt stares blankly at this rn and states i'm just not feeling well. when this rn asks what do you mean by that? are you short of breath or having belly pain or something different? pt continues to stare at this rn and asks are you a doctor? this rn states no, im a nurse is that ok? and pt states everyone keeps asking me why i'm here. i would rather just save it for the doctor, you don't need to know. this rn explains to pt that nursing still has charting and assessments to do as well which is why multiple people ask. pt continues to blankly stare at this rn. this rn explains to pt that an iv will need started and bloodwork will need drawn. pt ignores this rn and puts arm towards this rn. Isamar JAY and Dr Shultz notified of pt behavior.
[2023-07-12 13:41] LABS: Absolute Lymphocyte Count 0.67 X10^3/uL (0.83-4.51); Absolute Neutrophil Count 3.9 X10^3/uL (2.0-7.7); Basophil# 0.03 X10^3/uL; Basophil% 0.6 % (0-1); Eosinophil# 0.18 X10^3/uL; Eosinophils% 3.5 % (0-5); Hematocrit 33.4 % (40-54); Hemoglobin 11.3 g/dL (13.0-16.5); Lymphocyte # 0.67 X10^3/ul (0.83-4.51); Mean Corp Hgb Conc 33.8 g/dL (32-36); Mean Corpuscular Hgb 31.9 pg (27.0-32.0); Mean Corpuscular Volume 94.4 fL (80-94); Mean Platelet Vol. 10.1 fl (6.2-12.0); Monocyte# 0.36 X10^3/uL; NRBC Flagged by Analyzer 0 % (0-5); Neutrophil # 3.91 X10^3/uL (2.7-7.7); Neutrophil % 75.5 % (47-70); Platelet Count 131 K/mm3 (150-450); RBC Distribution Width CV 12.4 % (11.6-14.6); RBC Distribution Width SD 42.8 fl (35.1-43.9); Red Blood Count 3.54 M/mm3 (4.6-6.2); White Blood Count 5.2 K/mm3 (4.4-11.0)
[2023-07-12 14:00] LABS: Anion Gap 4 (5-15); BUN 14 mg/dL (7-18); BUN/Creat Ratio 13.9 RATIO (10-20); Calcium,Total 8.6 mg/dL (8.5-10.1); Chloride 105 mmol/L (98-107); Creatinine, Serum 1.01 mg/dL (0.70-1.30); EST Glomerular Filtration Rate 77 mL/min (>60); Est Glom Filt Rate - Afr Amer 94 mL/min (>60); Estimated Creatinine Clearance 79.92 ml/min; Glucose 188 mg/dL (74-106); Potassium 4.3 mmol/L (3.5-5.1); Sodium Level 137 mmol/L (136-145); Troponin-I HS < 3 pg/mL (3.0-78.0)
--- NOTE | 2023-07-12 14:09 | ED.VIS.DYS ---
HPI <PIERRE Garcia - Last Filed: 07/12/23 21:03> History of Present Illness Chief Complaint: Shortness of Breath Narrative Narrative: Patient presenting today due to fatigue and overall not feeling well. He reports, I feel like I have one foot in the grave. He reports that he saw his PCP this morning who told him that his labs were abnormal and that he should go to the emergency department. When asked what labs were abnormal, patient is unsure and thinks that his blood counts were low. He does have a history of a GI bleed but denies any melena, hematochezia, or hematemesis. He reports that he does have some shortness of breath with exertion but this seems to be more chronic, he denies any chest pain or orthopnea. He denies fevers, chills, abdominal pain, nausea, and vomiting. PE Risk Factors: Negative for Prior DVT or PE, Recent immobilization, Recent surgery or Recent travel PFS <PIERRE Garcia - Last Filed: 07/12/23 21:03> [facility] Medical History TIA (transient ischemic attack) GERD (gastroesophageal reflux disease) Chronic anemia Former tobacco use HATTIE on CPAP Anxiety and depression Diabetes mellitus, type 2 BPH (benign prostatic hyperplasia) HLD (hyperlipidemia) HTN (hypertension) Home Medications ?Medication ?Instructions ?Recorded ?Last Taken ?Type Insulin Glargine,Hum.rec.anlog 45 unit SQ QHS diabetes 09/06/18 11/21/21 History Iron 65 mg PO DAILY supplement 09/06/18 11/21/21 History Novolog Flexpen 12 unit SQ TID PRN diabetes 09/06/18 11/21/21 History aspirin 81 mg capsule 81 mg PO DAILY heart health 11/22/21 11/21/21 History buspirone 5 mg tablet 5 mg PO QHS depression/anxiety 11/22/21 11/21/21 History cetirizine 10 mg tablet 10 mg PO QHS allergies 11/22/21 11/21/21 History multivitamin 1 tab PO DAILY supplement 11/22/21 11/21/21 History sertraline 100 mg tablet 100 mg PO DAILY depression/anxiety 11/22/21 11/21/21 History tamsulosin 0.4 mg capsule 0.4 mg PO QHS urine flow 11/22/21 11/21/21 History trazodone 50 mg tablet 25 mg PO QHS sleep 11/22/21 11/21/21 History gabapentin 300 mg capsule 300 mg PO BID 11/02/22 Unknown History lisinopril 20 mg tablet 20 mg PO DAILY 11/02/22 Unknown History naproxen 500 mg tablet (Naprosyn) 500 mg PO BID 11/02/22 Unknown History pantoprazole 40 mg tablet,delayed 40 mg PO BID #60 tabs 11/05/22 Unknown Rx release (Protonix) sucralfate 1 gram tablet 1 g PO TID@0700,1100,1600 30 days 11/05/22 Unknown Rx #90 tabs Allergy/AdvReac Type Severity Reaction Status Date / Time No Known Allergies Allergy Verified 07/12/23 12:37 Family History Mother ALS (amyotrophic lateral sclerosis) Father BPH (benign prostatic hyperplasia) CAD (coronary artery disease) Sister Diabetes Surgical History History of appendectomy History of back surgery History of umbilical hernia repair Social History household members: other details: Significant other present, girlfriend x 1 year. Smoking Status: Current some day smoker tobacco type: cigars how long ago did patient quit smoking: Quit cigarette tobacco 02/09 ppd x 25 yrs, picked up cigar 1-2/day. alcohol intake: current alcohol intake frequency: a few times a week substance use type: does not use ROS <PIERRE Garcia - Last Filed: 07/12/23 21:03> ROS ED Constitutional Constitutional ED: Denies chills or fever(s) Cardiovascular Cardiovascular: Denies chest pain or orthopnea Respiratory/Chest Respiratory/Chest: Reports dyspnea on exertion; Denies cough, orthopnea or wheezing Gastrointestinal Gastrointestinal: Denies abdominal pain, melena, nausea or vomiting Musculoskeletal Musculoskeletal: Denies arthralgias or myalgias Integumentary Denies rash Neurologic Neurologic: Denies weakness Psychiatric Psychiatric: Reports depression; Denies homicidal ideation, suicidal ideation or suicidal thoughts EXAM <PIERRE Garcia - Last Filed: 07/12/23 21:03> Physical Exam Const Vital Signs: 07/12/23 12:37 07/12/23 13:50 07/12/23 14:36 Temperature 96.8 F L Temperature Source Temporal Pulse Rate 80 70 Respiratory Rate 18 18 Respiratory Effort Normal Non-Labored Respiratory Depth Normal Respiratory Pattern Normal Blood Pressure 139/56 H 134/61 H Blood Pressure Mean 83 85 Pulse Ox 100 Oxygen Delivery Method Room Air 07/12/23 14:38 07/12/23 15:12 Temperature 96.9 F L Temperature Source Pulse Rate 64 Respiratory Rate 14 Respiratory Effort Respiratory Depth Respiratory Pattern Blood Pressure 122/91 H Blood Pressure Mean 101 Pulse Ox 99 99 Oxygen Delivery Method Positive well nourished, well developed and no apparent distress General Appearance ED: well developed HEENT Reports normocephalic and head/scalp atraumatic Mouth ED: Yes moist mucous membranes normal Eyes PERRL and EOMs intact bilaterally Neck full ROM and supple Chest Wall inspection of chest normal Resp normal respiratory effort and clear to auscultation bilaterally Cardio regular rate and regular rhythm GI soft to palpation, non-tender, non-distended and no masses Back/Spine normal ROM and normal to inspection Extremity normal to inspection and full ROM General Extremety ED: Negative for edema General Extremity: Negative for edema Neuro oriented x3, CN's II-XII intact bilaterally, moves all extremities, no focal motor deficits and no sensory deficits noted Sensorium / Orientation: awake and alert Psych mental status grossly normal and thought process normal Skin no rashes or lesions noted and no wounds <Dr. Randy Shultz DO - Last Filed: 07/13/23 22:48> Physical Exam Const Vital Signs: 07/12/23 12:37 07/12/23 13:50 07/12/23 14:36 Temperature 96.8 F L Temperature Source Temporal Pulse Rate 80 70 Respiratory Rate 18 18 Respiratory Effort Normal Non-Labored Respiratory Depth Normal Respiratory Pattern Normal Blood Pressure 139/56 H 134/61 H Blood Pressure Mean 83 85 Pulse Ox 100 Oxygen Delivery Method Room Air 07/12/23 14:38 07/12/23 15:12 Temperature 96.9 F L Temperature Source Pulse Rate 64 Respiratory Rate 14 Respiratory Effort Respiratory Depth Respiratory Pattern Blood Pressure 122/91 H Blood Pressure Mean 101 Pulse Ox 99 99 Oxygen Delivery Method MDM <PIERRE Garcia - Last Filed: 07/12/23 21:03> MDM MDM Narrative Medical decision making narrative: Patient presenting today due to generalized fatigue. He reports that he saw his PCP today who told him he should come to the ER. Patient is very vague on exam and does not really have any acute complaints, he did admit to feeling short of breath with exertion at times but this does not sound new. He did admit to feeling depressed at times but denied SI and HI. He has a low Wells score, low suspicion for PE. He states his PCP told him his labs were abnormal and he thinks that his blood counts were low. Labs will be obtained to rule out leukocytosis, anemia, electrolyte abnormality, DAVID, and ACS. His H&H is 11.3 and 33.4 which is improved from previous visit, troponin nonsignificant. Platelet count 131, glucose 188. Chest x-ray negative for any acute cardiopulmonary abnormality. EKG is normal sinus rhythm. Given patient's negative workup I have encouraged that he follow-up with his PCP and he will be discharged home in stable condition. Return instructions were given. Lab Data Attestation: I reviewed the patient's lab results. Labs: Laboratory Results - last 24 hr 07/12/23 13:30 WBC 5.2 RBC 3.54 L Hgb 11.3 L Hct 33.4 L MCV 94.4 H MCH 31.9 MCHC 33.8 RDW Std Deviation 42.8 RDW Coeff of Haley 12.4 Plt Count 131 L MPV 10.1 Immature Gran % (Auto) 0.400 Neut % (Auto) 75.5 H Lymph % (Auto) 13.0 L [place] % (Auto) 7.0 Eos % (Auto) 3.5 Baso % (Auto) 0.6 Absolute Neuts (auto) 3.9 Absolute Lymphs (auto) 0.67 L Nucleated RBC % 0 Sodium 137 Potassium 4.3 Chloride 105 Carbon Dioxide 28.0 Anion Gap 4 L BUN 14 Creatinine 1.01 Estim Creat Clear Calc 79.92 Est GFR (MDRD) Af Amer 94 Est GFR (MDRD) Non-Af 77 BUN/Creatinine Ratio 13.9 Glucose 188 H Calcium 8.6 Troponin I High Sens < 3 L Radiography X-Ray: Read by ED Physician Diagnostic Testing: Clinical Impression(s) from Imaging Studies Chest X-Ray 07/12/23 13:35 IMPRESSION: No acute abnormality is seen. Electronically Signed: Kulwant Lentz MD at 14:01 EDT , EKG Initial EKG: Comments: 66 bpm, normal sinus rhythm, no ST elevation, no signs of cardiac ischemia, reviewed and interpreted by attending ED physician <Dr. Randy Shultz, DO - Last Filed: 07/13/23 22:48> MDM MDM Narrative Medical decision making narrative: Patient presenting today due to generalized fatigue. He reports that he saw his PCP today who told him he should come to the ER. Patient is very vague on exam and does not really have any acute complaints, he did admit to feeling short of breath with exertion at times but this does not sound new. He did admit to feeling depressed at times but denied SI and HI. He has a low Wells score, low suspicion for PE. He states his PCP told him his labs were abnormal and he thinks that his blood counts were low. Labs will be obtained to rule out leukocytosis, anemia, electrolyte abnormality, DAVID, and ACS. His H&H is 11.3 and 33.4 which is improved from previous visit, troponin nonsignificant. Platelet count 131, glucose 188. Chest x-ray negative for any acute cardiopulmonary abnormality. EKG is normal sinus rhythm. Given patient's negative workup I have encouraged that he follow-up with his PCP and he will be discharged home in stable condition. Return instructions were given. This patient was seen with a PA/POWERHOUSE TENDER Individually assessed they patient including history and physical. I have reviewed everything on the chart that is available and agree with the documentation provided by the PA/POWERHOUSE TENDER including discussion about the assessment, treatment plan, discussion, and return precautions. Patient reporting stating he feels awful. He reports to me that he think it all has to do with his Ozempic treatment. He states it makes him feel really rundown although his A1c has gotten better and his weight has gone down. Does not feel he has any energy. We obtained a cardiac workup today. And this was normal. Chest x-ray my interpretation is no acute process. Radiology interprets this and agrees. EKG on my interpretation sinus rhythm at 66 bpm without sign of ischemic change. No STEMI. Discussed with him that his lab work is normal and his vital signs are stable. I recommended that he follow-up with his primary care physician and talk to them about changing his medications after making him feel as badly. He is amenable to this. Discharged stable condition. Lab Data Labs: Laboratory Results - last 24 hr 07/12/23 13:30 WBC 5.2 RBC 3.54 L Hgb 11.3 L Hct 33.4 L MCV 94.4 H MCH 31.9 MCHC 33.8 RDW Std Deviation 42.8 RDW Coeff of Haley 12.4 Plt Count 131 L MPV 10.1 Immature Gran % (Auto) 0.400 Neut % (Auto) 75.5 H Lymph % (Auto) 13.0 L [place] % (Auto) 7.0 Eos % (Auto) 3.5 Baso % (Auto) 0.6 Absolute Neuts (auto) 3.9 Absolute Lymphs (auto) 0.67 L Nucleated RBC % 0 Sodium 137 Potassium 4.3 Chloride 105 Carbon Dioxide 28.0 Anion Gap 4 L BUN 14 Creatinine 1.01 Estim Creat Clear Calc 79.92 Est GFR (MDRD) Af Amer 94 Est GFR (MDRD) Non-Af 77 BUN/Creatinine Ratio 13.9 Glucose 188 H Calcium 8.6 Troponin I High Sens < 3 L Radiography Diagnostic Testing: Clinical Impression(s) from Imaging Studies Chest X-Ray 07/12/23 13:35 IMPRESSION: No acute abnormality is seen. Electronically Signed: Kulwant Lentz MD at 14:01 EDT Reading Location ID and State: [facility] / [place] , Service support , Discharge Plan Triage Chief Complaint: Shortness of Breath ED Midlevel Provider: Isamar Navarro ED Provider: Randy Shultz Dx/Rx/DC Orders Clinical Impression: Fatigue, POWERS (dyspnea on exertion) Instructions: ED Dyspnea Prescriptions: No Action Insulin Glargine,Hum.rec.anlog 45 unit SQ QHS Iron 65 mg PO DAILY Novolog Flexpen 12 unit SQ TID PRN (Reason: diabetes) multivitamin Tablet 1 tab PO DAILY buspirone 5 mg Tablet 5 mg PO QHS trazodone 50 mg Tablet 25 mg PO QHS cetirizine 10 mg Tablet 10 mg PO QHS sertraline 100 mg Tablet 100 mg PO DAILY tamsulosin 0.4 mg Capsule 0.4 mg PO QHS aspirin 81 mg Capsule 81 mg PO DAILY gabapentin 300 mg capsule 300 mg PO BID lisinopril 20 mg tablet 20 mg PO DAILY naproxen [Naprosyn] 500 mg tablet 500 mg PO BID sucralfate 1 gram Tablet 1 g PO TID@0700,1100,1600 30 Days Qty: 90 0RF pantoprazole [Protonix] 40 mg tablet,delayed release (DR/EC) 40 mg PO BID Qty: 60 0RF [facility] - Activity Restrictions/Additional Instructions: Follow-up with your PCP in the next 5 to 7 days and return for any worsening of your symptoms. Print Language: Indonesian Disposition Disposition: Home, Self Care Discharge Date/Time: 07/12/23 15:22
[2023-07-12 14:36] VITALS: BP 134/61; PULSE 70; RESP 18
[2023-07-12 14:38] VITALS: O2SAT 99
[2023-07-12 15:12] VITALS: BP 122/91; PULSE 64; RESP 14; TEMP 36.1; O2SAT 99
== END 2023-07-12 15:22 | disposition home or self-care (01) ==
PROVIDERS: Physician Assistant; Emergency Provider Student in an Organized Health Care Education/Training Program; Visit Provider Student in an Organized Health Care Education/Training Program
DX: R53.83 Other fatigue (principal); E11.9 Type 2 diabetes mellitus without complications; Z79.4 Long term (current) use of insulin; R06.09 Other forms of dyspnea; I10 Essential (primary) hypertension; E78.5 Hyperlipidemia, unspecified; G47.33 Obstructive sleep apnea (adult) (pediatric); K21.9 Gastro-esophageal reflux disease without esophagitis; Z79.82 Long term (current) use of aspirin; Z79.899 Other long term (current) drug therapy; F17.290 Nicotine dependence, other tobacco product, uncomplicated; Z86.73 Personal history of transient ischemic attack (TIA), and cerebral infarction without residual deficits
CPT/HCPCS: 71046; 80048; 84484; 85025; 93005; 99284; A4216

== ENCOUNTER 2023-11-22 12:36 | Emergency (ER) | payer OTHER, SELFPAY ==
[2023-11-22 12:37] VITALS: BP 132/65; PULSE 77; RESP 16; TEMP 35.8; O2SAT 98; BMI 27.4
--- NOTE | 2023-11-22 14:08 | CT_ITS ---
STUDY: CT ABDOMEN AND PELVIS WITHOUT CONTRAST REASON FOR EXAM: Male, 72 years old. Back and abdominal pain RADIATION DOSAGE (If Supplied By Facility): CTDIvol = ( 15.65 ) mGy, DLP = ( 825.07 ) mGycm TECHNIQUE: Transaxial images were obtained from the dome of the diaphragm to the symphysis pubis without oral contrast, and without intravenous contrast. Sagittal and coronal images were reconstructed. Individualized dose optimization techniques were used for this CT. COMPARISON: 11/02/2022 FINDINGS: The visualized lung bases are unremarkable. The visualized portions of the heart are within normal limits. Normal liver. Normal gallbladder and extrahepatic biliary system. Normal spleen. Normal pancreas. Normal bilateral adrenal glands. No obstructive uropathy, no suspicious solid renal lesion. Normal visualized stomach. Nondistended fluid-filled small bowel loops are noted consistent with ileus. Retained stool noted throughout the colon. I suspect the ileus may be caused by an internal hernia as there is significant mesenteric twisting noted in the left upper quadrant on axial images 55 through 82, series 2 and on coronal recon images 22 through 40 on series 601. This was present on the previous study, but is much more conspicuous on current exam Appendix not visualized Normal abdominal aorta. Normal inferior vena cava. Normal retroperitoneum. Normal urinary bladder. There is a left-sided inguinal hernia containing adipose tissue. There are diffuse degenerative changes of the visualized lumbar spine, and pelvis. Surgical hardware in the lower lumbar spine free of complication. CT/Abdomen/Pelvis without Cont IMPRESSION: Small bowel ileus without demonstrated obstruction. However, there is concerning twisting of the mesentery in the left upper quadrant which could be due to an internal hernia, twisting of the mesentery as seen on the images described above. No suspicious solid organ abnormality No free intraperitoneal fluid, air, or suspicious adenopathy Electronically Signed: Gustavo Castorena MD at 15:13 EDT ,
--- NOTE | 2023-11-22 14:09 | ED.VIS.BACK ---
HPI History of Present Illness Chief Complaint: Back Detail of Chief Complaint: Left lower back pain Informant: patient Narrative Narrative: Patient presents to the emergency department complaint of left lower back pain that started 1 week ago. He denies any injury. Pain does not radiate anywhere. Pain is continuous now and he rates it a 10 out of 10 at times. He had some mild nausea but no vomiting. Denies fevers. Complains of some mild urinary frequency but no dysuria and no hematuria. He has not had pain like this before. Pain does not seem to be pleuritic and at times seems positional. Denies recent surgery or travel. Patient states that he had been on Ozempic 3 weeks ago and discontinued that due to some side effects. [facility] Medical History TIA (transient ischemic attack) GERD (gastroesophageal reflux disease) Chronic anemia Former tobacco use HATTIE on CPAP Anxiety and depression Diabetes mellitus, type 2 BPH (benign prostatic hyperplasia) HLD (hyperlipidemia) HTN (hypertension) Home Medications ?Medication ?Instructions ?Recorded ?Last Taken ?Type Insulin Glargine,Hum.rec.anlog 45 unit SQ QHS diabetes 09/06/18 11/21/21 History Iron 65 mg PO DAILY supplement 09/06/18 11/21/21 History Novolog Flexpen 12 unit SQ TID PRN diabetes 09/06/18 11/21/21 History aspirin 81 mg capsule 81 mg PO DAILY heart health 11/22/21 11/21/21 History buspirone 5 mg tablet 5 mg PO QHS depression/anxiety 11/22/21 11/21/21 History cetirizine 10 mg tablet 10 mg PO QHS allergies 11/22/21 11/21/21 History multivitamin 1 tab PO DAILY supplement 11/22/21 11/21/21 History sertraline 100 mg tablet 100 mg PO DAILY depression/anxiety 11/22/21 11/21/21 History tamsulosin 0.4 mg capsule 0.4 mg PO QHS urine flow 11/22/21 11/21/21 History trazodone 50 mg tablet 25 mg PO QHS sleep 11/22/21 11/21/21 History gabapentin 300 mg capsule 300 mg PO BID 11/02/22 Unknown History lisinopril 20 mg tablet 20 mg PO DAILY 09/25/23 Unknown History naproxen 500 mg tablet (Naprosyn) 500 mg PO BID 11/02/22 Unknown History pantoprazole 40 mg tablet,delayed 40 mg PO BID #60 tabs 11/05/22 Unknown Rx release (Protonix) sucralfate 1 gram tablet 1 g PO TID@0700,1100,1600 30 days 11/05/22 Unknown Rx #90 tabs cyclobenzaprine 10 mg tablet 10 mg PO TID PRN Muscle Spasm #20 11/22/23 Unknown Rx TABLETS hydrocodone-acetaminophen 5-325mg 1 tab PO Q4H PRN PRN Pain 2 days 11/22/23 Unknown Rx 5mg-325mg #10 TABLETS Allergy/AdvReac Type Severity Reaction Status Date / Time No Known Allergies Allergy Verified 11/22/23 12:37 Family History Mother ALS (amyotrophic lateral sclerosis) Father BPH (benign prostatic hyperplasia) CAD (coronary artery disease) Sister Diabetes Surgical History History of appendectomy History of back surgery History of umbilical hernia repair Social History household members: other details: Significant other present, girlfriend x 1 year. Smoking Status: Former smoker how long ago did patient quit smoking: Quit cigarette tobacco 02/09 ppd x 25 yrs, picked up cigar 1-2/day. alcohol intake: current alcohol intake frequency: a few times a week substance use type: does not use ROS ROS ED Review of Systems ROS Unobtainable: other Constitutional Constitutional ED: Reports lethargy; Denies chills, fever(s), sweats or weight loss Eyes Eyes: Denies blurry vision, change in vision or diplopia ENT ENT ED: Denies rhinorrhea or sore throat Cardiovascular Cardiovascular: Denies chest pain, orthopnea or racing heartbeat Respiratory/Chest Respiratory/Chest: Denies cough, dyspnea, dyspnea on exertion, orthopnea or sputum Gastrointestinal Gastrointestinal: Denies abdominal pain, diarrhea, nausea or vomiting Genitourinary Genitourinary ED: Denies dysuria, hematuria or urinary frequency Musculoskeletal Musculoskeletal: Reports back pain; Denies arthralgias, myalgias or neck pain Integumentary Denies abscess, Abrasions or rash Neurologic Neurologic: Denies headache(s) or weakness Psychiatric Psychiatric: Denies anxiety, depression or suicidal thoughts Endocrine Endocrinology: Denies polydipsia, polyphagia or polyuria Hematologic/Lymphatic Hematologic/Lymphatic: Denies easy bleeding, easy bruising or lymphadenopathy Allergic/Immunologic Allergic/Immunologic ED: Denies mouth swelling, tongue swelling or urticaria EXAM Physical Exam Const Vital Signs: 11/22/23 12:37 11/22/23 14:30 Temperature 96.5 F L Temperature Source Temporal Pulse Rate 77 62 Respiratory Rate 16 Blood Pressure 132/65 H 128/63 H Blood Pressure Mean 87 81 Pulse Ox 98 Oxygen Delivery Method Room Air Positive well nourished and well developed General Appearance ED: well developed and NAD HEENT Reports TM's clear and moist mucous membranes normocephalic and atraumatic; Negative for trauma or tenderness Tympanic Membrane ED: Yes TM's clear Eyes PERRL and EOMs intact bilaterally General Eye ED: Negative for pale conjunctiva or scleral icterus Neck no lymphadenopathy, supple and no JVD General: Negative for tenderness Chest Wall inspection of chest normal and palpation of chest normal Chest: Negative for tenderness Resp normal respiratory effort and clear to auscultation bilaterally Effort and Inspection: Negative for respiratory distress or pain with movement Auscultation: Negative for rhonchi, wheezes or diminished lung sounds Cardio regular rate, regular rhythm, S1 normal heart sound, S2 normal heart sound and no murmurs Peripheral Pulses: pulses 2+ throughout GI normal to inspection, nondistended, normoactive bowel sounds, soft to palpation, non-tender, non-distended and no masses Back/Spine no CVA tenderness and no thoracic nor lumbar tenderness Back/Spine Narrative: Patient has no tenderness over the thoracic or lumbar spine. There is no erythema or warmth noted to his back. I cannot reproduce his pain with palpation. He has negative straight leg raises bilaterally. Deep tendon reflexes plus 2 out of 4 bilaterally at the patella and Achilles. Patient has normal L5 extension bilaterally. Diminished sensation to both lower extremities symmetrically. Extremity normal to inspection General Extremety ED: Negative for edema General Extremity: Negative for edema Neuro oriented x3, CN's II-XII intact bilaterally, no sensory deficits noted and gait normal Sensorium / Orientation: awake, alert, oriented to person, oriented to place and oriented to time Motor Exam: strength 5/5 throughout and strength abnormal Psych mental status grossly normal Skin no rashes or lesions noted and no wounds MDM MDM MDM Narrative Medical decision making narrative: Patient presents with left-sided back pain x 1 week without trauma. He denies any abdominal pain and denies history of kidney stones but was worried about possibility of a kidney stone. Clinically looks well. No red flag symptoms of cauda equina. IV line established. He did not want a thing for pain initially. CBC with differential obtained showed a white count of 6.1 with hemoglobin 13.5 and platelet count of 144. Chemistries unremarkable. Glucose 244. D-dimer was normal at 0.4. BUN 14 and creatinine 1.2. Urinalysis was normal without signs of infection or hematuria. We obtained a CT scan of the abdomen and pelvis which did not show any evidence of kidney stone. There was a ileus noted and radiology suspects may be related to a twisting of the mesentery and internal hernia. Patient on repeat exam really does not have much abdominal discomfort on exam. I discussed case with general surgeon on-call Dr. Hernandez who will evaluate the CT images. After evaluating the images Dr. Julio does not believe there is any significant issue with the bowel and given that his exam is benign does not feel he needs any emergent intervention. It is believed this is a chronic issue. Patient does have some signs of constipation although he tells me he had a bowel movement yesterday and the day before and stools been soft. I will start her on Flexeril and a few [place] for pain as Expectuss may be musculoskeletal pain that were dealing with. Patient advised to return if abdominal pain, vomiting, fever, or condition worsening way. Patient discharged to home in stable condition Lab Data Attestation: I reviewed the patient's lab results. Labs: Laboratory Results - last 24 hr 11/22/23 14:17 WBC 6.1 RBC 4.25 L Hgb 13.5 Hct 39.6 L MCV 93.2 MCH 31.8 MCHC 34.1 RDW Std Deviation 44.0 H RDW Coeff of Haley 12.9 Plt Count 144 L MPV 9.9 Immature Gran % (Auto) 1.000 H Neut % (Auto) 67.9 Lymph % (Auto) 17.2 L [place] % (Auto) 7.6 Eos % (Auto) 5.6 H Baso % (Auto) 0.7 Absolute Neuts (auto) 4.1 Absolute Lymphs (auto) 1.05 Nucleated RBC % 0 D-Dimer Quant (PE/DVT) 0.40 Sodium 137 Potassium 4.6 Chloride 103 Carbon Dioxide 31.0 Anion Gap 3 L BUN 14 Creatinine 1.20 Estim Creat Clear Calc 61.97 Est GFR (MDRD) Af Amer 77 Est GFR (MDRD) Non-Af 63 BUN/Creatinine Ratio 11.7 Glucose 244 H Calcium 8.8 Urine Color Yellow Urine Clarity Clear Urine pH 6.0 Ur Specific [place] 1.015 Urine Protein Negative Urine Glucose (UA) 1000 H Urine Ketones Negative Urine Occult Blood Negative Urine Nitrite Negative Urine Bilirubin Negative Urine Urobilinogen Normal Ur Leukocyte Esterase Negative Urine RBC 0 SEEN Urine WBC 0 SEEN Ur Squamous Epith Cells 0 SEEN Urine Bacteria 0 SEEN Urine Mucus 0 SEEN Radiography Diagnostic Testing: Clinical Impression(s) from Imaging Studies Abdomen/Pelvis CT 11/22/23 14:08 IMPRESSION: Small bowel ileus without demonstrated obstruction. However, there is concerning twisting of the mesentery in the left upper quadrant which could be due to an internal hernia, twisting of the mesentery as seen on the images described above. No suspicious solid organ abnormality No free intraperitoneal fluid, air, or suspicious adenopathy Electronically Signed: Gustavo Castorena MD at 15:13 EDT Reading Location ID and State: [address] [place] [address] , Service support , Discharge Plan Triage Chief Complaint: Back Other Complaint: Flank Pain ED Provider: Luis Lovell Dx/Rx/DC Orders Clinical Impression: Back pain Instructions: ED Back Pain (Acute or Chronic) Prescriptions: New cyclobenzaprine 10 mg tablet 10 mg PO TID PRN (Reason: Muscle Spasm) Qty: 20 0RF hydrocodone-acetaminophen 5-325 mg tablet 1 tab PO Q4H PRN PRN (Reason: Pain) 2 Days Qty: 10 0RF No Action Insulin Glargine,Hum.rec.anlog 45 unit SQ QHS Iron 65 mg PO DAILY Novolog Flexpen 12 unit SQ TID PRN (Reason: diabetes) multivitamin Tablet 1 tab PO DAILY buspirone 5 mg Tablet 5 mg PO QHS trazodone 50 mg Tablet 25 mg PO QHS cetirizine 10 mg Tablet 10 mg PO QHS sertraline 100 mg Tablet 100 mg PO DAILY tamsulosin 0.4 mg Capsule 0.4 mg PO QHS aspirin 81 mg Capsule 81 mg PO DAILY gabapentin 300 mg capsule 300 mg PO BID lisinopril 20 mg tablet 20 mg PO DAILY naproxen [Naprosyn] 500 mg tablet 500 mg PO BID sucralfate 1 gram Tablet 1 g PO TID@0700,1100,1600 30 Days Qty: 90 0RF pantoprazole [Protonix] 40 mg tablet,delayed release (DR/EC) 40 mg PO BID Qty: 60 0RF [facility] [Primary [facility] Provider] - 5-7 Days Print Language: Mozambican Disposition Disposition: Home, Self Care
[2023-11-22 14:28] LABS: Bacteria 0 SEEN /hpf (None Seen); Mucous, Urine 0 SEEN /hpf (<or=2+); Red Blood Cells-Urine 0 SEEN /hpf (0-5); Squamous Epithelial Cells - UA 0 SEEN /hpf (0-5); White Blood Cells 0 SEEN /hpf (0-5)
[2023-11-22 14:30] VITALS: BP 128/63; PULSE 62
[2023-11-22 14:31] LABS: Color, Urine Yellow (Yellow); Glucose, Dipstick 1000 mg/dl (Normal); Ketone-Dipstick Negative (Negative); Leukocyte Esterase-Dipstick Negative /ul (Negative); Nitrite-Dipstick Negative (Negative); Occult Blood-Urine Negative /ul (Negative); Protein-Dipstick Negative (Negative); Specific Gravity, Urine 1.015 (1.002-1.030); Urine Bilirubin Dipstick Negative (Negative); Urine Clarity Clear (Clear); Urine Urobilinogen Normal (Normal)
[2023-11-22 14:34] LABS: Absolute Lymphocyte Count 1.05 X10^3/uL (0.83-4.51); Absolute Neutrophil Count 4.1 X10^3/uL (2.0-7.7); Basophil# 0.04 X10^3/uL; Basophil% 0.7 % (0-1); Eosinophil# 0.34 X10^3/uL; Eosinophils% 5.6 % (0-5); Hematocrit 39.6 % (40-54); Hemoglobin 13.5 g/dL (13.0-16.5); Lymphocyte # 1.05 X10^3/ul (0.83-4.51); Lymphocyte % 17.2 % (19-41); Mean Corp Hgb Conc 34.1 g/dL (32-36); Mean Corpuscular Hgb 31.8 pg (27.0-32.0); Mean Corpuscular Volume 93.2 fL (80-94); Mean Platelet Vol. 9.9 fl (6.2-12.0); Monocyte# 0.46 X10^3/uL; Monocyte% 7.6 % (0-10); NRBC Flagged by Analyzer 0 % (0-5); Neutrophil # 4.14 X10^3/uL (2.7-7.7); Neutrophil % 67.9 % (47-70); Platelet Count 144 K/mm3 (150-450); RBC Distribution Width CV 12.9 % (11.6-14.6); Red Blood Count 4.25 M/mm3 (4.6-6.2); White Blood Count 6.1 K/mm3 (4.4-11.0)
[2023-11-22 14:42] LABS: Anion Gap 3 (5-15); BUN 14 mg/dL (7-18); BUN/Creat Ratio 11.7 RATIO (10-20); Calcium,Total 8.8 mg/dL (8.5-10.1); Chloride 103 mmol/L (98-107); EST Glomerular Filtration Rate 63 mL/min (>60); Est Glom Filt Rate - Afr Amer 77 mL/min (>60); Estimated Creatinine Clearance 61.97 ml/min; Glucose 244 mg/dL (74-106); Potassium 4.6 mmol/L (3.5-5.1); Sodium Level 137 mmol/L (136-145)
[2023-11-22 15:30] VITALS: BP 129/77
[2023-11-22 16:06] VITALS: BP 146/88; PULSE 63; RESP 18; TEMP 37; O2SAT 98
== END 2023-11-22 16:06 | disposition home or self-care (01) ==
PROVIDERS: Emergency Provider Emergency Medicine; Visit Provider Emergency Medicine
DX: M54.50 Low back pain, unspecified (principal); E11.9 Type 2 diabetes mellitus without complications; Z79.4 Long term (current) use of insulin; E78.5 Hyperlipidemia, unspecified; I10 Essential (primary) hypertension; Z79.82 Long term (current) use of aspirin; Z79.899 Other long term (current) drug therapy; Z87.891 Personal history of nicotine dependence
CPT/HCPCS: 74176; 80048; 81001; 85025; 85379; 99283; A4216